=== PATIENT | female | born 1985 | race Caucasian/White ===

== ENCOUNTER 2019-05-30 09:06 | Outpatient (CLI) | payer BC, SELFPAY ==
[2019-05-30 13:56] LABS: CREATININE 0.84 mg/dL (0.55-1.02); Calcium 9.3 mg/dL (8.5-10.1); Chloride 103 mmol/L (98-107); Glucose 82 mg/dL (70-100); Potassium 3.9 mmol/L (3.5-5.1); Sodium 139 mmol/L (136-145)
[2019-05-30 14:03] LABS: BUN 8 mg/dL (7-18)
== END 2019-05-30 09:26 ==
PROVIDERS: PCP Nurse Practitioner Family; Visit Provider Nurse Practitioner Family
DX: Z00.00 Encounter for general adult medical examination without abnormal findings (principal); Z13.228 Encounter for screening for other metabolic disorders
CPT/HCPCS: 36415; 80048

== ENCOUNTER 2022-06-16 17:53 | Outpatient (REF) | payer OTHER, SELFPAY ==
[2022-06-16 21:01] LABS: Anion Gap 9.4 mmol/L (3-11); BUN 9 mg/dL (7-18); CO2 26.6 mmol/L (21.0-32.0); CREATININE 0.8 mg/dL (0.55-1.02); Calcium 9.2 mg/dL (8.5-10.1); Calculated LDL 100 mg/dL (<100); Chloride 103 mmol/L (98-107); Cholesterol 175 mg/dL (<200); Estimated GFR 97.26 (mL/min/1.73m2); Glucose 86 mg/dL (74-106); HDL Cholesterol 57 mg/dL (40-60); Potassium 3.8 mmol/L (3.5-5.1); Sodium 139 mmol/L (136-145); Triglyceride 93 mg/dL (<150)
== END 2022-06-16 17:54 | disposition home or self-care (01) ==
LOC: NCHCN 17:53
PROVIDERS: PCP Nurse Practitioner Family; Visit Provider Nurse Practitioner Family
DX: I10 Essential (primary) hypertension (principal); Z13.220 Encounter for screening for lipoid disorders
CPT/HCPCS: 80048; 80061

== ENCOUNTER 2022-06-30 09:48 | Outpatient (REF) | payer OTHER, SELFPAY ==
--- NOTE | 2022-06-30 09:45 | PAPFT_PTH ---
PATIENT: Kaela Talavera LOC: [facility]#:[id number] AGE/SX: 36/F ROOM: RE06/30/[address]: Pamela Zamora : 1985 BED: DIS: 06/30/2022 SPEC #: [id number] RECD: 06/30/22 15:52 STATUS: JUSTIN REJennifer #: [id number] JIAN: 06/30/22 09:[address]: Pamela Zamora DEPT: [facility] Cytology RECD BY: Bailey Sheldon Tissues: 1 - CX/ENDOCX FOR PAP SMEARS Procedures: PAP THIN PREP/UVM Screening HPV DNA PROBE Comments: [id number]
--- OUTSIDE RECORDS SUMMARY | 2022-06-30 10:08 | XMS_ITS | Encounter Summary ---
:1985 Author Organization [facility] Address [address] [place] [address] Care Team Providers Name Role Phone RivasBozena Primary Care Provider Reason for Referral (Routine) - Closed Specialty Diagnoses / Procedures Referred By Contact Refer red To Contact Debbie Padilla AP RN CNM [address] [phone] Referral ID Status Reason Start Date Expiration Date Visits V isits Requested Authorized [id number] Closed Specialty 12/06/2013 1 1 Services Required Comments Call [phone] for 6 week post v isit with [facility] practice Encounter Details Date Type Department Care Team Description 12/05/2013 - [facility] Piter Muniz MD [address] [phone] Supervision of 12/06/2013 Encounter Mother/Baby Unit Fabiano Rodriguez MD [address] [phone] other normal [address] ([place], [place]) [id number] Social History Tobacco Use Types Packs/Day Years Used Date Smoking Tobacco: Never Smokeless Tobacco: Never Alcohol Use Standard Drinks/Week Comments No 0 (1 standard drink = 0.6 oz pure alcoho l) Sex Assigned at Date Recorded Not on file documented as of this encounter Last Filed Vital Signs Vital Sign Reading Time Taken Comments Blood Pressure 122/78 12/06/2013 1630 EDT Pulse 65 12/06/2013 1630 EDT Temperature 36.7 ??C (98.1 ??F) 12/06/2013 1630 EDT Respiratory Rate 20 12/06/2013 1630 EDT Oxygen Saturation 98% 12/06/2013 1630 EDT Inhaled Oxygen Concentration - - Weight 106.6 kg (235 lb) 12/06/2013 1100 EDT Height 165.1 cm (5' 5) 12/06/2013 1100 EDT Body Mass Index 39.11 12/06/2013 1100 EDT documented in this encounter Functional Status Functional Status Response Date of Assessment Are you deaf or do you have serious difficulty hearing? No 12/05/2013 Are you blind or do you have serious difficulty seeing, No 12/05/2013 even when wearing glasses? Do you have serious difficulty walking or climbing No 12/05/2013 stairs? (5 years old or older) Do you have difficulty dressing or bathing? (5 years old No 12/05/2013 or older) Because of a physical, mental, or emotional condition, do No 12/05/2013 you have difficulty doing errands alone such as visiting a doctor's office or shopping? (15 years old or older) Cognitive Status Response Date of Assessment Because of a physical, mental, or emotional condition, do Ye s 12/05/2013 you have serious difficulty concentrating, remembering, or making decisions? (5 years old or older) documented as of this encounter Discharge Summaries Debbie Padilla CNM - 12/05/2013 1732 EDT MATERNAL DISCHARGE SUMMARY Maternal Name: Teresa Talavera : 1985 Attending: Admission: 12/05/2013 Discharge:___/_2013___ Reason for Admission: 28 y/o 2 para 1001 at 39+2/7 weeks gestation. Tate. PAST HISTORY: Disorders diagnosed prior to current Medical Renal Disease: Nephrolithiasis Gynecological Sexually Transmitted Diseases: None; Comments: PCOS Obstetrical No significant history CURRENT HISTORY (HPI): Disorders diagnosed during current Medical Substance Abuse: None; Smoking: None; Sexually Transmitted Diseases: None Obstetrical Mild Preeclampsia Comments: probable gestational HTN Medications during current : None Maternal Labs: O+; Antibody screen: Neg; Rubella titer: Immune; Syphilis Screening: Neg; Gonorrhea Screening: Neg; Chlamydia Screening: Neg; Hepatitis B screen: Neg; Hepatitis C screen: Not Done; HIV: Neg; 1hr Glucose: Normal LABOR INFORMATION Labor Onset: Induced; Method: Oxytocin; Augmentation: AROM GBS Status: Negative; GBS Prophylaxis: None Labor Analgesia: None; Labor & Delivery Medications: Post Oxytocin VTX; OA Continuous External FHRM; FHR Pattern: Normal Amniotic Fluid Color: Thin meconium; Duration Rupture of Membranes: <12 DELIVERY INFORMATION Spontaneous Vaginal Delivery; Episiotomy: None; Lacerations: Periurethral, First Degree Perineal; Repair Suture: 4-0 Vicryl; Delivery / Repair Anesthesia: Local; EBL: < 500 Comments: Teresa became active after AROM and was complete by 1639 pushed 4 min to live term female infant at 1643 8#6oz Apgars 9/9 baby to maternal abdomen. Placenta: Delivery Method: Spontaneous; Configuration: Normal; Comments: Cord double clamped after it stopped pulsating. Placenta complete and intact via jimenez mechanism with gentle cord traction and maternaleffort at 1647, 3 vessel cord noted. MATERNAL DISCHARGE SUMMARY Labor and Delivery Complications and/or Procedures: None INFORMATION Weight: 3799 grams Sex: Female Delivery Date: 12/05/2013 Delivery Time: 1643 Apgars: 91 , 95 : PPD #1 Additional Comments: Experienced mother Diet: Regular Activity Decreased for 2 weeks Discharge Medications / Dosage All OTC meds Other Problems / Discharge Diagnoses Follow-Up Plan for each Problem Condition at Discharge: Stable Discharge Disposition: [x] Home [] Other: House Staff/[facility] Signature: ___12/06/2013 0940 Debbie Padilla [facility] Srinath 12/05/2013 @ 1733 documented in this encounter Medications at Time of Discharge Medication Sig Dispensed Refills Start Date End Date acetaminophen (TYLENOL) Take 650 mg by mouth 0 325 mg tablet every 4 hours as needed for Pain. ibuprofen (MOTRIN) 400 mg Take 1 Tab by mouth 30 Tab 1 0 12/06/2013 tablet every 4 hours as needed for Pain. lansinoh HPA lanolin For sore nipples. 1 Tube 1 12/07/19 14 MULTIVITAMIN WITH FOLIC Take 2 Tabs by mouth 0 ACID (DAILY GUMMIES ORAL) daily. calcium carbonate (TUMS) Take 1-2 Tabs by 30 Tab 1 12/0601/16/2014 200 mg calcium (500 mg) mouth every 4 hours tablet, chewable as needed (gerd). docusate sodium (COLACE) Take 100 mg by mouth 0 01/16/2014 100 mg capsule daily. famotidine (PEPCID) 20 mg Take 20 mg by mouth 0 01/16/2014 tabletIndications: daily as needed. heartburn Indications: HEARTBURN psyllium, 5.8 G, Take 1 Packet by 0 (METAMUCIL) packet mouth daily. documented as of this encounter Ordered Prescriptions Prescription Sig Dispensed Refills Start Date End Date lansinoh HPA lanolin For sore nipples. 1 Tube 1 12/07/19 14 ibuprofen (MOTRIN) 400 mg Take 1 Tab by mouth 30 Tab 1 0 12/06/2013 tablet every 4 hours as needed for Pain. calcium carbonate (TUMS) Take 1-2 Tabs by 30 Tab 1 12/0601/16/2014 200 mg calcium (500 mg) mouth every 4 hours tablet, chewable as needed (gerd). documented in this encounter Discharge Disposition Disposition Code Departure Means Destination Home or Self Care documented in this encounter Progress Notes Debbie Padilla CNM - 12/06/2013 0954 EDT S: Very happy with the - after AROM - went very quickly Wants D/C - lives 1 1/2 hour away but wants to be home OOB with out dizziness Voiding qs, no BM Bleeding is small, passed a few small clots last night. T&M are controlling the uterine cramping pain O: BP 124/72 Pulse 79 Temp(Src) 36.8 ??C (98.2 ??F) (Temporal) Resp 18 SpO2 97% LMP 03/02/2013 Breasts Soft, nipples intact FF @ 1F below umbilicus Small -mod rubra flow Perineum approximated LE - +2 edema, tucker's neg A: PPD #1 S/P IOL/ with 1st degree laceration repaired, epidural P: D/C - Peds has said OK Review PPD signs. Plans ?micronor for birthcontrol F/U 6 weeks Michelle Juarez CNM - 12/05/2013 1719 EDT Delivery Note: Teresa became active after AROM and was complete by 1639 pushed 4 min to live term female infant at 1643 8#6oz Apgars 9/9 baby to maternal abdomen. Cord double clamped after it stopped pulsating. Placenta complete and intact via jimenez mechanism with gentle cord traction and maternal effort at 1647, 3 vessel cord noted. Perineum inspected and revealed 1st degree perineal laceration and periurthreal skid rashad - not repaired. First degree laceration repaired under local anesthesia with 4-0 vicryl. Pt remained normotensive the entire labor. Baby latched and sucked vigorously for ~ 20+ minutes. Will follow. Michelle Juarez CNM - 12/05/2013 1557 EDT S/ Pt feels UCs mildly. P/Blood pressure 119/68, pulse 78, temperature 36.3 ??C (97.3 ??F), temperature source Oral, resp. rate 18, last menstrual period 03/02/2013. Pitocin at 13 --> 10 mu/min UCs q q 2 min x 50 seconds FHTs 130s with accels to 150s and adequate variability VE 6 / 80% /-1 to -2 station vtx applied to cervix with UCs --> AROM copious amounts lightly stained meconium amniotic fluid A/ IUP 39+2 weeks Mild pre-eclampsia with no severe features vs gestational HTN IOL Early active labor P/ Anticipate progress per multip Labor support Genesis Christianson RN - 12/05/2013 1128 EDT Pt here for IOL for pre-eclampsia.KINJAL Juarez here to speak with pt.D. Pt is a G*2 P1* at 39 plus 2 weeks here for an induction of labor for preeclampsia vs GHTN. Her GBS is negative. Pt is not sure what to expect. Her cervical exam is 4 making her bishops score ? A. Explain to the patient that she will have an IV, and continuous monitoring. We will use the wireless monitor to facilitate movement in labor and they will also allow her to use the tub and be monitored. The doctors will make a plan with her regarding the induction agent to be used, and will explainthe risks and benefits of the agent to be used. Anesthesia will do a consult in case she wants an epidural. Nursing will be in to see her every 15 minutes providing continuous labor support as needed. VS will be done hourly. When she is uncomfortable nursing will work with her to cope with the labor. Should the patient request an epidural nursing will ensure that the doctors are aware of the request and anesthesia will be notified. Explain a normal labor curve and how a baby descends. R pt will be reassured and understand the laboring process.1303 Eating lunch,beginning to feel occasional ctx.1349 C/O menstrual like cramping with ctxs.1557 C/O increasing intensity of ctxs.Breathing slowly through ctxs.Leaking copious amts thin mec fluid.1604 Beg to feel rectal pressure.Kinjal Juarez informed.1637 Pt stating sherhas to push but not bearing down.Kinjal Juarez and telegraphic typewriter mechanic in room. documented in this encounter H&P Notes Fabiano Rodriguez MD - 12/05/2013 1153 EDT Obstetric Admission Note: CC: 28 y/ present at 39+2 weeks with mild pre-eclampsia without sever features HPI: BP elevated x 1 at 35+ weeks with elevated total protein 403 at 35+5 weeks then normotensive until yesterday History Maternal Name: Teresa Talavera : 1985 28 y/o 2 para 1001 at 39+2/7 weeks gestation. Tate EDDY: 12/10/2013 EDDY Basis: Ultrasound only PAST HISTORY: Disorders diagnosed prior to current Medical Renal Disease: Nephrolithiasis Gynecological Sexually Transmitted Diseases: None Comments: PCOS Obstetrical No significant history CURRENT HISTORY (HPI pg. 1 of 2): Disorders diagnosed during current Medical Substance Abuse: None; Smoking: None; Sexually Transmitted Diseases: None Obstetrical Mild Preeclampsia Comments: probable gestational HTN Medications during current : None TESTING Maternal Labs: O+; Antibody screen: Neg; Rubella titer: Immune; Syphilis Screening: Neg; Gonorrhea Screening: Neg; Chlamydia Screening: Neg; Hepatitis B screen: Neg; Hepatitis C screen: Not Done; HIV: Neg; 1hr Glucose: Normal Serum Screening: Multiple Marker Screening Not Done; Cystic Fibrosis Carrier Screening: Not Done Surveillance: Ultrasound Objective: Blood pressure 132/70, pulse 91, temperature 36.3 ??C (97.3 ??F), temperature source Oral, resp. rate 18, last menstrual period 03/02/2013. Heart: RRR Lungs: clear bilaterally Abdomen: gravid EFW 7#4oz Pelvic Exam: 4 cm// -2 / 70%/ vtx ballotable Extremities:- clonus No reflexes ( patellar) FHTs: 130s accels to 150s no decels and adequate variability Contractions: irritability no regular UCs LABS from 1700 5/5/14: H/H 12.0/36.9 Plts 218 BUN 6 Creat 0.6 Uric Acid 4.2 AST 21 ALT 31 Fibrinogen 598 U/A - protein Protein/creatinine ratio 0.26 Pitocin Bundle: Induction 39w2d EDC: 12/10/13 Indication: mild pre-eclamsia Prior Uterine Scar: no EFW: 7#4 Assessment of Pelvic Adequacy: gynecoid - proven to 7#12 Presentation: vertex Michael Score: 8 Informed Consent: yes Attending Concurs: yes Assessment: 28 y/o G2 P 1001 at 39+2 weeks Michael score 8 - GBS Probable Gestational HTN but mild pre-eclampsia given total protein elevated at 35+5 weeks Category I FHTs BMI 35 H/O kidney stones H/O PCOS Plan: Induction of labor with pitocin I&O Large cuff for BP AROM when able Continuous EFM Desires NCB Reviewed with Dr. Rodriguez OB Attending Attestation: I have reviewed Teresa Talavera's labs, vitals and history, and agree with the above assessment andplan as noted. 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 . Maternal Name: Teresa Talavera : 1985 28 y/o 2 para 1001 at 39+2/7 weeks gestation. Tate. LABOR INFORMATION Labor Onset: Induced; Method: Oxytocin; Augmentation: AROM GBS Status: Negative; GBS Prophylaxis: None Labor Analgesia: None Labor & Delivery Medications: Post Oxytocin VTX; OA Continuous External FHRM; FHR Pattern: Normal Amniotic Fluid Color: Thin meconium; Duration Rupture of Membranes: <12 DELIVERY INFORMATION Spontaneous Vaginal Delivery Episiotomy: None; Lacerations: Periurethral, First Degree Perineal; Repair Suture: 4-0 Vicryl Delivery / Repair Anesthesia: Local EBL: < 500 Comments: Teresa became active after AROM and was complete by 1639 pushed 4 min to live term female at 1643 8#6oz Apgars 9/9 baby to maternal abdomen. Placenta: Delivery Method: Spontaneous; Configuration: Normal; Comments: Cord double clamped after it stopped pulsating. Placenta complete and intact via jimenez mechanism with gentle cord traction and maternaleffort at 1647, 3 vessel cord noted. Labor and Delivery Complications: None INFORMATION Weight: 3799 grams Sex: Female Delivery Date: 12/05/2013 Delivery Time: 1643 Apgars: 91, 95 Peds NOT Present Admitting Nursery: Normal Rhame Placental Cord Insertion: Normal; Umbilical Cord Vessels: Three DELIVERY PERSONNEL Delivery Provider: Michelle Juarez Primary Nurse: Genesis Christianson CNM: Michelle Juarez Additional Provider 1: Fabiano Rodriguez Service / Group: KINJAL/TAMAR Provider: Michelle Juarez Lovell Staff/KINJAL Signature: Michelle Juarez 12/05/2013 @ 1732 Attending Attestation: Attending Signature: Date: documented in this encounter Miscellaneous Notes Plan of Care - Henny Iyer RN - 12/06/2013 1854 EDT Post- Shift Note Maternal: Admit Date: 12/05/2013 Hospital Day: LOS: 1 day Date of Delivery: Information for the patient's : Sadaf Lucio [[id number]] 12/05/2013 Time of Delivery: Information for the patient's : Sadaf Glenteresa [[id number]] 1643 Type of Delivery: normal spontaneous vaginal delivery Rhogam Administration: Not needed Gestation (weeks): 39+2 Information for the patient's : Sadaf Karolenriqueta [[id number]] 39 09/08 Hepatitis B: Lab Results Component Value Date HEPBSAG Negative 04/26/2013 Hepatitis C: No results found for this basename: HEPCAB Rubella: Protected Anesthesia/Duramorph: None Episiotomy/Laceration:1st degree Vital signs: Stable Patient Vitals for the past 8 hrs: BP Pulse Resp Temp SpO2 12/06/13 1630 122/78 mmHg 65 20 36.7 ??C (98.1 ??F) 98 % 12/06/13 1414 136/80 mmHg 75 - - - Post- check: WNL no headache, no visual change, no epigastric pain SL: None Almanza/Void: Patient up and voiding Pain Medications: Given this shift - see MAR Feeding: breast Feeding assistance: Independent Special Social Circumstances: Discharge Education:Education completed Certificate: Not completed Comments: Stable PP patient, discharged ambulatory accompanied by and older child and infantin carseat. Mother instructed in how to suction with bulb syringe, and how to help a choking baby since baby has been spitty. Henny Iyer RN 12/06/2013 18:54 Plan of Care - Debbie Velasco RN - 12/06/2013 1408 EDT Post- Shift Note Maternal: Admit Date: 12/05/2013 Hospital Day: LOS: 1 day Date of Delivery: Information for the patient's : Lucio Talavera [[id number]] 12/05/2013 Time of Delivery: Information for the patient's : Lucio Talavera [[id number]] 1643 Type of Delivery: normal spontaneous vaginal delivery Rhogam Administration: Not needed Gestation (weeks): Information for the patient's : Lucio Talavera [[id number]] 39 2/7 Hepatitis B: Lab Results Component Value Date HEPBSAG Negative 04/26/2013 Hepatitis C: No results found for this basename: HEPCAB Rubella: Protected Anesthesia/Duramorph: None Episiotomy/Laceration:1st degree Vital signs: Stable Patient Vitals for the past 8 hrs: BP Pulse Resp Temp SpO2 12/06/13 0743 124/72 mmHg 79 18 36.8 ??C (98.2 ??F) 97 % Post- check: WNL no headache, no visual change, no epigastric pain SL: None Almanza/Void: Patient up and voiding Pain Medications: Given this shift - see MAR Feeding: breast Feeding assistance: Independent Special Social Circumstances: Discharge Education:Education completed Certificate: Not completed Knows she needs to turn it in before discharge Comments: Stable PP patient. Taking T/M when requested. Doing lots of STS. Has a 2 year old at home.Hoping for discharge later today. No referral. She will be discharged with her Debbie Velasco RN 12/06/2013 14:08 Plan of Care - Amanda Fletcher RN - 12/06/2013 1009 EDT Problem: VAGINAL DELIVERY - RECOVERY AND POST Goal: Vital Signs Are Medically Acceptable Outcome: Met This Shift Data: DD #1 @ 1643. See flowsheet for VS. Action: VS done q8hrs per MD orders. Response: AVSS. Will continue to monitor. Plan of Care - Amanda Fletcher RN - 12/06/2013 1007 EDT Post- Shift Note Maternal: Admit Date: 12/05/2013 Hospital Day: LOS: 1 day Date of Delivery: Information for the patient's : Lucio Talavera [[id number]] 12/05/2013 Time of Delivery: Information for the patient's : Lucio Talavera [[id number]] 1643 Type of Delivery: normal spontaneous vaginal delivery Rhogam Administration: Not needed Gestation (weeks): Information for the patient's : Lucio Talavera [[id number]] 39 09/08 Hepatitis B: Lab Results Component Value Date HEPBSAG Negative 04/26/2013 Hepatitis C: No results found for this basename: HEPCAB Rubella: Protected Anesthesia/Duramorph: None Episiotomy/Laceration:1st degree Vital signs: Stable Patient Vitals for the past 8 hrs: BP Pulse Resp Temp SpO2 12/06/13 0743 124/72 mmHg 79 18 36.8 ??C (98.2 ??F) 97 % Post- check: WNL IV / SL: Saline lock removed - catheter intact Almanza/Void: Patient up and voiding Pain Medications: Given this shift - see MAR Feeding: breast Feeding assistance: Independent Special Social Circumstances: Discharge Education:Education initiated and Education incomplete Certificate: Not completed Comments: Stable PP patient. Taking T/M when requested. Doing lots of STS. Has a 2 year old at home.Hoping for discharge later today. Amanda Fletcher RN 12/06/2013 10:07 Plan of Care - Amanda Fletcher RN - 12/06/2013 0321 EDT Problem: VAGINAL DELIVERY - RECOVERY AND POST Goal: Fundus Firm At Midline Outcome: Ongoing Data: Fundus firm, to the right, +2. Moderate/scant rubra lochia. No clots. Action: Fundal assessment done q8hrs per MD orders. Pt up to void. Response: Fundus firm, midline, U-1; post void. Encourage patient to void frequently. Plan of Care - Amanda Fletcher RN - 12/06/2013 0317 EDT Post- Shift Note Maternal: Admit Date: 12/05/2013 Hospital Day: LOS: 1 day Date of Delivery: Information for the patient's : Sadaf Karolenriqueta [[id number]] 12/05/2013 Time of Delivery: Information for the patient's : Sadaf Glenteresa [[id number]] 1643 Type of Delivery: normal spontaneous vaginal delivery Rhogam Administration: Not needed Gestation (weeks): Information for the patient's : Sadaf Lcuio [[id number]] 39 09/08 Hepatitis B: Lab Results Component Value Date HEPBSAG Negative 04/26/2013 Hepatitis C: No results found for this basename: HEPCAB Rubella: Protected Anesthesia/Duramorph: None Episiotomy/Laceration:1st degree Vital signs: Stable Patient Vitals for the past 8 hrs: BP Pulse Resp Temp SpO2 12/06/13 0011 125/71 mmHg 85 18 36.4 ??C (97.5 ??F) - 12/05/13 2001 137/77 mmHg 84 18 36.7 ??C (98.1 ??F) 97 % Post- check: WNL IV / SL: Saline lock patent and flushed this shift Almanza/Void: Patient up and voiding Pain Medications: Given this shift - see MAR Feeding: breast Feeding assistance: Independent Special Social Circumstances: Discharge Education:Education initiated and Education incomplete Certificate: Not completed Comments: Stable PP patient. Taking T/M when requested. Doing lots of STS. Has a 2 year old at home.Hoping for discharge later today. Amanda Fletcher RN 12/06/2013 3:18 documented in this encounter Plan of Treatment Scheduled Referrals Name Type Priority Associated Order Schedule Diagnoses PROVIDER FOLLOW-UP Outpatient Referral Routine Or dered: INSTRUCTIONS 12/06/2013 documented as of this encounter Visit Diagnoses Diagnosis Supervision of other normal - Primary documented in this encounter Administered Medications Inactive Administered Medications - up to 3 most recent administrations Medication Order MAR Action Action Date Dose Rate Site acetaminophen (TYLENOL) tablet Given 12/06/2013 10:49 EDT 650 mg 325-650 mg 325-650 mg, oral, EVERY 4 HOURS PRN, Starting on Wed12/05/13 at 2100, Until Wed12/06/13 at 2009, Pain, Routine Given 12/06/2013 3:04 EDT 650 mg acetaminophen (TYLENOL) tablet 650 mg Given 12/05/2013 17:13 EDT 650 mg 650 mg, oral, PRN, Starting on Wed12/05/13 at 1155, Until Wed12/05/13 at 1822, Pain, , Routine docusate sodium (COLACE) capsule 100 mg Given 12/06/2013 10:49 EDT 100 mg 100 mg, oral, 2 TIMES DAILY PRN, Starting on Wed12/05/13 at 1822, Until Wed12/06/13 at 2009, Constipation, Routine ibuprofen (MOTRIN) tablet 400 mg Given 12/05/2013 17:12 EDT 400 mg 400 mg, oral, PRN, Starting on Wed12/05/13 at 1155, Until Wed12/05/13 at 1822, Pain, , Routine ibuprofen (MOTRIN) tablet 400 mg Given 12/06/2013 10:48 EDT 400 mg 400 mg, oral, EVERY 4 HOURS PRN, Starting on Wed12/05/13 at 2100, Until Wed12/06/13 at 2009, Pain, Routine Given 12/06/2013 3:04 EDT 400 mg lactated ringers (LR) infusion New Bag 12/05/2013 11:52 EDT 200 mL/hr 200 mL/hr 150-200 mL/hr, intravenous, CONTINUOUS, Starting on Wed12/05/13 at 1215, Until Wed12/05/13 at 1822, Routine oxytocin in lactated ringers 30 Restarted 12/05/2013 16:47 EDT 2 00 mL/hr 200 mL/hr units/500 ml 200 mL/hr, intravenous, CONTINUOUS, Starting on Wed12/05/13 at 1630, Until Wed12/05/13 at 1822, Routine, Intraprocedure oxytocin in lactated ringers Rate Change 12/05/2013 17:46 EDT 135 mL/hr 135 mL/hr 30 units/500 ml 135 mL/hr, intravenous, CONTINUOUS, Starting on 12/05/13 at 1747, Until 12/05/13 at 1822, Routine, Intraprocedure oxytocin in lactated Rate Change 12/05/2013 16:22 EDT 4 kwan-units/m in 4 mL/hr ringers 30 units/500 ml 1-30 kwan-units/min (rounded to 1-30 mL/hr), intravenous, CONTINUOUS, Starting on 12/05/13 at 1215, Until 12/05/13 at 1822, Routine Rate Change 12/05/2013 15:53 EDT 7 kwan-units/min 7 mL/hr Rate Change 12/05/2013 15:44 EDT 10 kwan-units/min 10 mL/hr documented in this encounter Active and Recently Administered Medications Times are shown in EDT. Continuous Medication Order 12/04/2013 12/05/2013 12/06/2013 lactated ringers (LR) infusion (CANCELED) 1152 (New Bag - Provider: Genesis Christianson RN) at 150-200 mL/hr, 150-200 mL/hr, intrave nous, CONTINUOUS, Starting 12/05/13 at 1215, Until 12/05/13 at 1822, Routine oxytocin in lactated ringers 30 units/500 ml (CANCELED) 1647 (Restarted - Provider: Genesis Christianson RN) 200 mL/hr, intravenous, CONTINUOUS, Star ting 12/05/13 at 1630, Until 12/05/13 at 1822, Routine oxytocin in lactated ringers 30 units/500 ml (CANCELED) 1746 (Rate Change - Provider: Genesis Christianson RN)1803 (Completed - Provider: Genesis Christianson RN) 135 mL/hr, intravenous, CONTINUOUS, Star ting 12/05/13 at 1747, Until 12/05/13 at 1822, Routine oxytocin in lactated ringers 30 units/500 ml (CANCELED) 1213 (New Bag - Provider: Genesis Christianson RN)1244 (Rate Change - Provider: Genesis Christianson RN)1314 (Rate Change - Provider: Genesis Christianson RN)1341 (Rate Change - Provider: Genesis Christianson RN)1410 (Rate Change - Provider: Genesis Christianson RN) 1-30 kwan-units/min = 1-30 mL/hr, intra venous, CONTINUOUS, Starting Wed12/05/13 at 1215, Until Wed12/05/13 at 1822, Routine 1453 (Rate Change - Provider: Genesis Christianson RN)1522 (Rate Change - Provider: Genesis Christianson RN)1544 (Rate Change - Provider: Genesis Christianson RN)1553 (Rate Change - Provider: Genesis Christianson RN)1622 (Rate Change - Provider: Genesis Christianson RN) 1636 (Completed - Provider: Tiara Christianson RN) PRN Medication Order 12/04/2013 12/05/2013 12/06/2013 acetaminophen (TYLENOL) tablet 325-650 mg (CANCELED) 0304 (Given - Provider: Amanda Fletcher RN)1049 (Given - Provider: Amanda Fletcher RN) 325-650 mg, oral, EVERY 4 HOURS PRN, Sta rting Wed12/05/13 at 2100, Until Wed12/06/13 at 2009, Pain, Routine acetaminophen (TYLENOL) tablet 650 mg (CANCELED) 1713 (Given - Provider: Genesis Christianson RN) 650 mg, oral, PRN, Starting Wed12/05/13 a t 1155, Until Wed12/05/13 at 1822, Pain, , Routine calcium carbonate (TUMS) 200 mg calcium (500 mg) per chewable tablet tablet, chewable 1-2 Tab 1-2 Tab, oral, EVERY 2 HOURS PRN, Starti ng Wed12/05/13 at 1822, Until Wed12/06/13 at 2009, Heartburn, Indigestion, Routine docusate sodium (COLACE) capsule 100 mg (CANCELED) 1049 (Given - Provider: Amanda Fletcher RN) 100 mg, oral, 2 TIMES DAILY PRN, Startin g Wed12/05/13 at 1822, Until Wed12/06/13 at 2009, Constipation, Routine ibuprofen (MOTRIN) tablet 400 mg (CANCELED) 1712 (Given - Provider: Genesis Christianson RN) 400 mg, oral, PRN, Starting Wed12/05/13 a t 1155, Until Wed12/05/13 at 1822, Pain, , Routine ibuprofen (MOTRIN) tablet 400 mg 0304 (Given - Provider: Amanda Fletcher, RN)1048 (Given - Provider: Amanda Fletcher, SRINIVAS) 400 mg, oral, EVERY 4 HOURS PRN, Startin g Wed12/05/13 at 2100, Until Wed12/06/13 at 2010, Pain, Routine lansinoh HPA lanolin topical, PRN, Starting Wed12/05/13 at 1822, Until Wed12/06/13 at 2 010, Other documented in this encounter Orders Medications Ordered That Might Not Have Count Last Ord ered Date First Ordered Date Been Administered multivitamin vit-iron fumarate-FA 1 12/06 (STUARTNATAL) 27-1 mg tablet 1 Tab calcium carbonate (TUMS) 200 mg calcium 1 12/06/19 14 (500 mg) per chewable tablet tablet, chewable 1-2 Tab carboprost (HEMABATE) intramuscular 1 12/05/2013 injection 250 mcg lansinoh HPA lanolin 1 12/05/2013 methylergonovine (METHERGINE) injection 1 12/06/19 14 200 mcg misoprostol (CYTOTEC) tablet 200 mcg 1 12/05/2013 misoprostol (CYTOTEC) tablet 800 mcg 1 12/05/2013 oxyCODONE (ROXICODONE) immediate release 1 014 tablet 5-10 mg Diet Count Last Ordered Date First Ordered Date DISCHARGE DIET 1 12/06/2013 Nursing Count Last Ordered Date First Ordered Date ACTIVITY INSTRUCTIONS 3 12/06/2013 BATHING INSTRUCTIONS 12/06/2013 Admission Count Last Ordered Date First Ordered Date STATUS: INPATIENT ACUTE ADMISSION 12/05/2013 STATUS: NON-MEDICARE OB INPATIENT 1 12/05/2013 ADMISSION Transfer Count Last Ordered Date First Ordered Date NOTIFY PPS OF DISCHARGE COMPLETE 1 12/06/2013 PPS NOTIFICATION OF PATIENT ARRIVAL ON 4 UNIT PPS NOTIFICATION OF SENDING PATIENT OFF 12/06/19 14 THE UNIT Discharge Count Last Ordered Date First Ordered Date DISCHARGE PATIENT 1 12/06/2013 Legal Count Last Ordered Date First Ordered Date MISCELLANEOUS DISCHARGE INSTRUCTIONS 3 12/06/2013 documented in this encounter Care Teams Dog Handler Or Trainer Relationship Specialty Start Date End Date Bozena Rivas DO PCP - General 09/27/[address] [place] [id number] documented as of this encounter
--- OUTSIDE RECORDS SUMMARY | 2022-06-30 10:08 | XMS_ITS | Encounter Summary ---
:1985 Author Organization [facility] Address [address] [place] [address] Care Team Providers Name Role Phone Rivas Bozena A Primary Care Provider Reason for Visit Reason Onset Date Comments Post- Care 12/14/2013 Encounter Details Date Type Department Care Team Description 12/14/2013 Telephone [facility] Alessia Sierra , Post- Care Obstetrics & Midwifery - [address] [address] [facility] [place] [address] (Wo rk) Social History Tobacco Use Types Packs/Day Years Used Date Smoking Tobacco: Never Smokeless Tobacco: Never Alcohol Use Standard Drinks/Week Comments No 0 (1 standard drink = 0.6 oz pure alcoho l) Sex Assigned at Date Recorded Not on file documented as of this encounter Functional Status Functional Status Response [...] or older) documented as of this encounter Miscellaneous Notes Telephone Encounter - Alessia Sierra CNM - 12/14/2013 1510 EDT Called Kaela to check on transition, We're doing great!! Much easier recovery after this than after her first. is going well with comfortable latch. Older daughter Clover adjusting to new sibling, Kaela finding ways to help her feel included during cares. Lochia is like a period, no problems voiding or moving bowels. was home first week and now Kaela's mom is helping out. Reminded her to call and schedule her 6 week visit. documented in this encounter Plan of Treatment Not on filedocumented as of this encounter Visit Diagnoses Not on filedocumented in this encounter Care Teams Log Sorting Supervisor Relationship Specialty Start Date End Date Bozena Rivas DO PCP - General 09/27/[address] [place] [id number] documented as of this encounter
--- OUTSIDE RECORDS SUMMARY | 2022-06-30 10:08 | XMS_ITS | Encounter Summary ---
:1985 Author Organization [facility] Address [address] [place] [address] Care Team Providers Name Role Phone Evelyn Bozena Viera DO Primary Care Provider Encounter Details Date Type Department Care Team Description 09/12/2013 Hospital Encounter [facility] - Unknown, Provider, [facility] Erlinda Martinez APRN [facility] [address] [facility] [place] [address] [address], [place] [id number] Social History Tobacco Use Types Packs/Day Years Used Date Smoking Tobacco: Never Smokeless Tobacco: Never Alcohol Use Standard Drinks/Week Comments No 0 (1 standard drink = 0.6 oz pure alcoho l) Sex Assigned at Date Recorded Not on file documented as of this encounter Functional Status Cognitive Status Response Date of Assessment Because of a physical, mental, or emotional condition, do Ye s 01/10/2011 you have serious difficulty concentrating, remembering, or making decisions? (5 years old or older) documented as of this encounter Discharge Diagnoses Diagnosis V22.1 SUPERVIS OTHER NORMAL PREG[ICD-9-C M] documented in this encounter Medications at Time of Discharge Medication Sig Dispensed Refills Start Date End Date acetaminophen (TYLENOL) Take 650 mg by mouth 0 325 mg tablet every 4 hours as needed for Pain. MULTIVITAMIN WITH FOLIC Take 2 Tabs by mouth 0 ACID (DAILY GUMMIES ORAL) daily. docusate sodium (COLACE) Take 100 mg by mouth 0 01/16/2014 100 mg capsule daily. famotidine (PEPCID) 20 mg Take 20 mg by mouth 0 01/16/2014 tabletIndications: daily as needed. heartburn Indications: HEARTBURN HYDROmorphone (DILAUDID) Take 1-2 Tabs by 20 Each 0 08/0909/29/2013 2 mg tablet mouth every 4 hours as needed for Pain. psyllium, 5.8 G, Take 1 Packet by 0 (METAMUCIL) packet mouth daily. documented as of this encounter Discharge Disposition Disposition Code Departure Means Destination Auto Discharge Home documented in this encounter Plan of Treatment Not on filedocumented as of this encounter Visit Diagnoses Not on filedocumented in this encounter Care Teams Medical Diagnostic Radiographer Relationship Specialty Start Date End Date Bozena iRvas DO PCP - General 05/26/11 09/26/[address] [place] [phone] documented as of this encounter
--- OUTSIDE RECORDS SUMMARY | 2022-06-30 10:08 | XMS_ITS | Encounter Summary ---
:1985 Author Organization [facility] Address [address] [place] [address] Care Team Providers Name Role Phone Bozena Rivas DO Primary Care Provider Encounter Details Date Type Department Care Team Description 09/12/2013 Phlebotomy Only [facility] - Lead Recreation Assistant, [facility] Outpatient [address] [place] [address] Social History Tobacco Use Types Packs/Day Years Used Date Smoking Tobacco: Never Smokeless Tobacco: Never Alcohol Use Standard Drinks/Week Comments No 0 (1 standard drink = 0.6 oz pure alcoho l) Sex Assigned at Date Recorded Not on file documented as of this encounter Functional Status Cognitive Status Response Date of Assessment Because of a physical, mental, or emotional condition, Ye s 01/10/2011 you have serious difficulty concentrating, remembering, or making decisions? (5 years old or older) documented as of this encounter Plan of Treatment Not on filedocumented as of this encounter Visit Diagnoses Not on filedocumented in this encounter Care Teams Chocolate Production Machine Operator Relationship Specialty Start Date End Date Bozena Rivas DO PCP - General 05/26/11 09/26/[address] [place] [phone] documented as of this encounter
--- OUTSIDE RECORDS SUMMARY | 2022-06-30 10:08 | XMS_ITS | Encounter Summary ---
:1985 Author Organization [facility] Address [address] [place] [address] Care Team Providers Name Role Phone Rivas Bozena Maximiliano CASTELLANO Primary Care Provider Encounter Details Date Type Department Care Team Description 09/12/2013 Phlebotomy Only [facility] Publications Distribution Clerk, Super vision [facility] Outpatient normal [address] [place] [address] Social History Tobacco Use Types Packs/Day Years [...] Not on filedocumented as of this encounter Procedures Procedure Name Priority Date/Time Associated Diagnosis Comme nts GLUCOSE RYAN, DOSE Routine 09/12/2013 14:45 Supervision of othe r Results for this EST normal procedure a re in the results section. GLUCOSE-1HR Routine 09/12/2013 14:45 Supervision of other GESTATIONAL SCREEN EST normal GLUCOSE-1HR Routine 09/12/2013 14:45 Supervision of other Res ults for this GESTATIONAL SCREEN EST normal proce dure are in the results section. COMPLETE BLOOD COUNT Routine 09/12/2013 14:45 Supervision of o ther Results for this EST normal procedure a re in the results section. documented in this encounter Results GLUCOSE-1HR GESTATIONAL SCREEN (09/12/2013 14:45 EST) athologist Signature Glucose-1hr 82 50 - 134 [facility] mg/dl LAB Comment: A one hour glucose greater than or equal to 135 mg/dl should be further evaluated with a forma l three hour glucose tolerance test. Specimen Anatomical Collection Method Collection Time Receive d Time (Source) Location / / Volume Laterality 09/12/2013 14:45 09/12/2013 EST 16:12 EST Erlinda Martinez APRN, CNM CHEMISTRY & BLOOD GAS ORDE RABLES Performing Organization Address City/State/ZIP Code Phon e Number [facility] [address] [place] [address] SERVICES [facility] [address] [place] [address] GLUCOSE RYAN, DOSE (09/12/2013 14:45 EST) athologist [facility] Glucose Dose 50 g [facility] Specimen Anatomical Collection Method Collection Time Receive d Time (Source) Location / / Volume Laterality 09/12/2013 14:45 09/12/2013 EST 16:12 EST Erlinda Martinez APRN [facility] PACKAGES & DNA PROBE ORDER REDDY Performing Organization Address City/[facility]/ZIP Code Phon e Number [facility] [address] [place] [address] SERVICES [facility] [address] [place] [address] (ABNORMAL) HEMAGRAM (09/12/2013 14:45 EST) athologist Signature WBC 11.97 4.0 - 12.4 [facility] K/cmm LAB RBC 4.27 3.86 - 5.04 [facility] M/cmm LAB Hemoglobin 11.3 (L) 11.6 - 15.2 [facility] gm/dl LAB HCT 34.4 (L) 34.9 - 44.4 [facility] % LAB MCV 80 (L) 81 - 98 fl [facility] MCH 26.5 (L) 26.7 - 33.3 [facility] pg LAB MCHC 33.0 32.1 - 35.9 [facility] gm/dl LAB PLT 239 141 - 320 [facility] K/cmm LAB RDW-CV 13.0 11.7 - 14.6 [facility] % LAB Specimen Anatomical Collection Method Collection Time Receive d Time (Source) Location / / Volume Laterality Blood specimen 09/12/2013 14:45 4 (specimen) EST 16:12 EST Erlinda Martinez CAR WHACKER CNM HEMATOLOGY & PF4 ORDERABLE S Performing Organization Address City/State/ZIP Code Phon e Number [facility] [address] [place] [address] SERVICES [facility] [address] [place] [address] documented in this encounter Visit Diagnoses Diagnosis Supervision of other normal documented in this encounter Care Teams Strip Picker Relationship Specialty Start Date End Date Bozena Rivas DO PCP - General 05/26/11 09/26/[address] [place] [phone] documented as of this encounter
--- OUTSIDE RECORDS SUMMARY | 2022-06-30 10:08 | XMS_ITS | Encounter Summary ---
:1985 Author Organization [facility] Address [address] [place] [address] Care Team Providers Name Role Phone Evelyn Bozena Viera DO Primary Care Provider Reason for Referral (Routine) - Closed Specialty Diagnoses / Procedures Referred By Contact Refer red To Contact Alessia Sierra APRN CNM [address] [phone] Referral ID Status Reason Start Date Expiration Date Visits V isits Requested Authorized [id number] Closed Specialty 12/04/2013 1 1 Services Required Comments Plan is for induction of labor tomorrow. (Routine) - Closed Specialty Diagnoses / Procedures Referred By Contact Refer red To Contact Alessia Sierra APRN CNM [address] [phone] Referral ID Status Reason Start Date Expiration Date Visits V isits Requested Authorized [id number] Closed Specialty 12/04/2013 1 1 Services Required Reason for Visit Reason Comments Pre-Eclampsia Encounter Details Date Type Department Care Team Description 12/04/2013 Hospital Encounter [facility] Joe Ivy MD Supervision of Birthing Center Keli Muniz MD [address] [facility], [facility], Level 4 [place] [address] other normal Unit (Primary [address]) [place], [place] [id number] Social History Tobacco Use Types Packs/Day Years Used Date Smoking Tobacco: Never Smokeless Tobacco: Never Alcohol Use Standard Drinks/Week Comments No 0 (1 standard drink = 0.6 oz pure alcoho l) Sex Assigned at Date Recorded Not on file documented as of this encounter Last Filed Vital Signs Vital Sign Reading Time Taken Comments Blood Pressure 143/85 12/04/2013 1725 EDT Pulse 72 12/04/2013 1725 EDT Temperature 36 ??C (96.8 ??F) 12/04/2013 1700 EDT Respiratory Rate 18 12/04/2013 1725 EDT Oxygen Saturation - - Inhaled Oxygen Concentration - - Weight - - Height - - Body Mass Index - - documented in this encounter Functional Status Cognitive Status Response Date of Assessment Because of a physical, mental, or emotional condition, do Ye s 01/10/2011 you have serious difficulty concentrating, remembering, or making decisions? (5 years old or older) documented as of this encounter Medications at Time of Discharge [...] Care documented in this encounter Progress Notes JarrodAlessia Garces CNM - 12/04/2013 5658 EDT S: Sent from office for preeclamptic work-up. Denies headache, vision changes, RUQ or epigastric pain. Has had increased swelling in ankles for past 4 days. No regular ctx, bleeding or LOF. +FM. Here with 2 year old daughter and no belongings, would like to come back tomorrow if induction is necessary. Had preeclamptic work-up 11/10/13 for blood pressure of 140/80, LFTs were stable, 24 hour urine protein on 11/13/2013 was 403 mg. O: BP 143/85 Pulse 72 Temp(Src) 36 ??C (96.8 ??F) (Tympanic) Resp 18 LMP 03/02/2013 Range BP: (130-143)/(85-96) UCs: Acontractile FHR: Baseline 120, moderate variability, + accels, no decels SVE: Deferred, 3-4/80%/-1 in office earlier today Results for orders placed during the hospital encounter of 12/04/13 (from the past 24 hour(s)) HEMAGRAM Collection Time 12/04/13 16:15 Result Value Range WBC 11.34 4.0 - 12.4 K/cmm RBC 4.58 3.86 - 5.04 M/cmm Hemoglobin 12.0 11.6 - 15.2 gm/dl HCT 36.9 34.9 - 44.4 % MCV 81 81 - 98 fl MCH 26.2 (*) 26.7 - 33.3 pg MCHC 32.6 32.1 - 35.9 gm/dl PLT 218 141 - 320 K/cmm RDW-CV 14.6 11.7 - 14.6 % BUN Collection Time 12/04/13 16:15 Result Value Range BUN 6 (*) 10 - 26 mg/dl CREATININE Collection Time 12/04/13 16:15 Result Value Range Creatinine 0.60 0.52 - 1.04 mg/dl GFR, Calculated >60 >60 ml/min/1.73m2 URIC ACID Collection Time 12/04/13 16:15 Result Value Range Uric Acid 4.2 2.2 - 7.7 mg/dl AST Collection Time 12/04/13 16:15 Result Value Range AST 21 15 - 46 U/L ALT Collection Time 12/04/13 16:15 Result Value Range ALT 31 9 - 52 U/L LDH Collection Time 12/04/13 16:15 Result Value Range LDH 364 313 - 618 U/L FIBRINOGEN Collection Time 12/04/13 16:15 Result Value Range Fibrinogen 598 (*) 171 - 384 mg/dl BLOOD BANK SPECIMEN HOLD Collection Time 12/04/13 16:15 Result Value Range Hold BB Spec will exp at 23:59, 3 days from collect date URINALYSIS Collection Time 12/04/13 16:27 Result Value Range Color, UA Yellow Clarity, UA Clear Glucose, UA Neg Neg Bilirubin, UA Neg Neg Ketones, UA Neg Neg Specific Piru, Urine 1.010 1.001 - 1.035 Blood, UA Neg Neg pH, UA 7.0 4.6 - 8.0 Protein, UA Neg Neg Urobilinogen, UA 0.2 0.2 - 1.0 E.U./dl Nitrite, UA Neg Neg Leuk Esterase 1+ (*) Neg URINE MICROSCOPIC Collection Time 12/04/13 16:27 Result Value Range WBC, UA 1 to 5 0 - 5 /HPF RBC, UA less than 1 0 - 5 /HPF Squam Epithel, UA Frequent (*) None seen /HPF Renal Epithel, UA None seen None seen /HPF Bacteria, UA None seen None seen /HPF Crystals, UA None seen Casts, UA None seen UA Comment Microscopic results Mucus, UA Present CREATININE, URINE RANDOM Collection Time 12/04/13 16:28 Result Value Range Creatinine, Urn [place] 56.7 TOTAL PROTEIN, URINE RANDOM Collection Time 12/04/13 16:28 Result Value Range Tot Prot,Ur Random 15 POCT URINE DIPSTICK Collection Time 12/04/13 14:59 Result Value Range Color YELLOW Clarity, UA Clear Glucose Neg Neg Bilirubin Neg Neg Ketones Neg Neg Specific Piru 1.015 1.001 - 1.035 Blood Neg Neg pH 7.0 4.6 - 8.0 Protein Neg Neg Urobilinogen 0.2 0.2 - 1.0 E.U./dl Nitrite Neg Neg Leuk Esterase 1+ (*) Neg Tech ID [id number] A: 28 yo at 39w1d with preeclampsia without severe features Urine protein creatinine ratio today 0.26, LFTs stable, no evidence of hemoconcentration or hemolysis. Michael's Score 7+ Reactive NST, FHR Cat I O pos/GBS neg P: Discussed with Dr. Zepeda who recommends induction tonight. Pt strongly prefers to go home, gather belongs and arrange childcare. Since she is medically stable Dr. Zepeda okay with waiting until tomorrow morning for induction. Patient is first priority for IOL in the morning, nursing aware. Discharge to home, instructions reviewed: pt will call inshore undersea warfare officer at 8:30 if hasn't heard from L&D Candace Calderon RN - 12/04/2013 1544 EDT 1545 Sent up from the office by Debbie Jiménez cnm to check for pre eclampsia. No fluid loss, no bleeding, occasional cramps. No headache, epigastric pain or vision changes B/p 138/96. FHR category 1 at this time 1630 Labs sent blood and urine. NST done FHR category 1. occasional contractions. 138/89 1700 Protein/ creat ratio .26. Labs WNL. Notifies Myles Chapito Garces CNM/ B/P 142/94 She will be in to talk with patient. 1800 CNM in and cervix favorable at 3/4 cm in office. Given the option of being induced now or in the morning. They live in [place] which is 2 hours away. documented in this encounter Plan of Treatment Scheduled Referrals Name Type Priority Associated Order Schedule Diagnoses PROVIDER FOLLOW-UP Outpatient Referral Routine Or dered: INSTRUCTIONS 12/04/2013 PROVIDER FOLLOW-UP Outpatient Referral Routine Or dered: INSTRUCTIONS 12/04/2013 documented as of this encounter Procedures Procedure Name Priority Date/Time Associated Comments Diagnosis TYPE AND SCREEN Routine 12/05/2013 12:17 Results for this EDT procedure are i n the results section. PROTEIN, TOTAL, Routine 12/04/2013 16:28 Results for this RANDOM, URINE EDT procedure are in the results section. CREATININE, URINE Routine 12/04/2013 16:28 Result s for this RANDOM EDT procedure are i n the results section. URINE MICROSCOPIC Routine 12/04/2013 16:27 Result s for this EDT procedure are i n the results section. URINALYSIS WITH STAT 12/04/2013 16:27 Results for this MICROSCOPIC IF EDT procedure are in POSITIVE the results section. FIBRINOGEN STAT 12/04/2013 16:15 Results for this EDT procedure are i n the results section. COMPLETE BLOOD COUNT STAT 12/04/2013 16:15 Res ults for this EDT procedure are i n the results section. BLOOD BANK HOLD STAT 12/04/2013 16:15 Results for this EDT procedure are i n the results section. URIC ACID STAT 12/04/2013 16:15 Results for this EDT procedure are i n the results section. BUN STAT 12/04/2013 16:15 Results for this EDT procedure are i n the results section. ALT STAT 12/04/2013 16:15 Results for this EDT procedure are i n the results section. AST STAT 12/04/2013 16:15 Results for this EDT procedure are i n the results section. LDH STAT 12/04/2013 16:15 Results for this EDT procedure are i n the results section. CREATININE STAT 12/04/2013 16:15 Results for this EDT procedure are i n the results section. documented in this encounter Results TYPE AND SCREEN (12/05/2013 12:17 EDT) P athologist Signature ABO O [facility] Rh Factor Positive [facility] Antibody Negative [facility] Comment: Specimen expires 23:59 12/08/19 14 Specimen (Source) Anatomical Collection Method Collection Time Re ceived Time Location / / Volume Laterality 12/05/2013 12:17 EDT Provider Unknown BLOOD BANK TESTS Performing Organization Address City/State/ZIP Code Phon e Number [facility] [address] [facility] [place] [address] [facility] TOTAL PROTEIN, URINE RANDOM (12/04/2013 16:28 EDT) athologist Signature Tot Prot,Ur 15 mg/dl [facility] Random LAB Specimen Anatomical Collection Method Collection Time Receive d Time (Source) Location / / Volume Laterality Urine URINE / Unknown 12/04/2013 16:28 12/05/19 14 (substance) EDT 16:33 EDT Alessia Sierra HOME SERVICE DEMONSTRATOR CNM URINALYSIS ORDERABLES Performing Organization Address City/[facility] Phon e Number [facility] [address] [place] [address] SERVICES [facility] [address] [place] [address] CREATININE, URINE RANDOM (12/04/2013 16:28 EDT) athologist Signature Creatinine, Urn 56.7 mg/dl [facility] [place] [facility] Specimen Anatomical Collection Method Collection Time Receive d Time (Source) Location / / Volume Laterality Urine URINE / Unknown 12/04/2013 16:28 12/05/19 14 (substance) EDT 16:33 EDT Alessia Sierra APRN CN URINALYSIS ORDERABLES Performing Organization Address City/[facility] Phon e Number [facility] [address] [place] [address] SERVICES [facility] [address] [place] [address] (ABNORMAL) URINE MICROSCOPIC (12/04/2013 16:27 EDT) [facility] gist Method Time Signature WBC, UA 1 to 5 0 - 5 [facility] /HPF [facility] RBC, UA less than 1 0 - 5 [facility] /HPF [facility] Squam Frequent (A) None seen [facility] Epithel, UA /HPF [facility] Renal None seen None seen [facility] Epithel, UA /HPF [facility] Bacteria, UA None seen None seen [facility] /HPF [facility] Crystals, UA None seen /HPF [facility] Hyaline None seen /LPF [facility] Casts, UA [facility] UA Comment Microscopic [facility] Comment: are unreliable on urines unrefrig >2hrs or refrig >8hrs. Mucus, UA Present [facility] Specimen Anatomical Collection Method Collection Time Receive d Time (Source) Location / / Volume Laterality 12/04/2013 16:27 12/04/2013 EDT 16:33 EDT Alessia Sierra APRN [facility] URINALYSIS ORDERABLES Performing Organization Address City/[facility]/ZIP Code Phon e Number [facility] [address] [place] [address] SERVICES [facility] [address] [place] [address] (ABNORMAL) URINALYSIS (12/04/2013 16:27 EDT) athologist Signature Color, UA Yellow [facility] Clarity, UA Clear [facility] Glucose, UA Neg Neg [facility] Bilirubin, UA Neg Neg [facility] Ketones, UA Neg Neg [facility] Specific 1.010 1.001 - [facility] Piru, Urine 1.035 LAB Blood, UA Neg Neg [facility] pH, UA 7.0 4.6 - 8.0 [facility] Protein, UA Neg Neg [facility] Urobilinogen, 0.2 0.2 - 1.0 [facility] UA E.U./dl LAB Nitrite, UA Neg Neg [facility] Leuk Esterase 1+ (A) Neg [facility] Specimen Anatomical Collection Method Collection Time Receive d Time (Source) Location / / Volume Laterality Urine URINE / Unknown 12/04/2013 16:27 12/05/19 14 (substance) EDT 16:33 EDT Alessia Sierra APRN [facility] URINALYSIS ORDERABLES Performing Organization Address City/[facility]/ZIP Code Phon e Number [facility] [address] [place] [address] SERVICES [facility] [address] [place] [address] BLOOD BANK SPECIMEN HOLD (12/04/2013 16:15 EDT) athologist Signature Hold BB Spec will [facility] exp at BLOOD BANK 23:59, 3 days from collect date Comment: NIKI SPECIMEN EXPIRES @ 23.59 ON 12/07/13 Specimen (Source) Anatomical Collection Method Collection Time Re ceived Time Location / / Volume Laterality Blood specimen 12/04/2013 16:15 (specimen) EDT Alessia Sierra APRN [facility] BLOOD BANK TESTS Performing Organization Address City/State/ZIP Code Phon e Number [facility] [address] [facility] [place] [address] [facility] (ABNORMAL) FIBRINOGEN (12/04/2013 16:15 EDT) athologist Signature Fibrinogen 598 (H) 171 - 384 [facility] mg/dl LAB Specimen Anatomical Collection Method Collection Time Receive d Time (Source) Location / / Volume Laterality Blood specimen 12/04/2013 16:15 4 (specimen) EDT 16:25 EDT Alessia Sierra APRN CNM HEMATOLOGY & PF4 ORDERA BLES Performing Organization Address [facility] Code Phon e Number [facility] [address] [place] [address] SERVICES [facility] [address] [place] [address] LDH (12/04/2013 16:15 EDT) athologist Signature LDH 364 313 - 618 [facility] U/L LAB Specimen Anatomical Collection Method Collection Time Receive d Time (Source) Location / / Volume Laterality Blood specimen 12/04/2013 16:15 4 (specimen) EDT 16:25 EDT Alessia Sierra APRN CNM CHEMISTRY & BLOOD GAS O RDERABLES Performing Organization Address City/[facility]/ZIP Code Phon e Number [facility] [address] [place] [address] SERVICES [facility] [address] [place] [address] ALT (12/04/2013 16:15 EDT) P athologist Signature ALT 31 9 - 52 U/L [facility] Specimen Anatomical Collection Method Collection Time Receive d Time (Source) Location / / Volume Laterality Blood specimen 12/04/2013 16:15 4 (specimen) EDT 16:25 EDT Alessia Sierra APRN CNM CHEMISTRY & BLOOD GAS O RDERABLES Performing Organization Address City/[facility]/ZIP Code Phon e Number [facility] [address] [place] [address] SERVICES [facility] [address] [place] [address] AST (12/04/2013 16:15 EDT) athologist Signature AST 21 15 - 46 U/L [facility] Specimen Anatomical Collection Method Collection Time Receive d Time (Source) Location / / Volume Laterality Blood specimen 12/04/2013 16:15 4 (specimen) EDT 16:25 EDT Alessia Sierra APRN CNM CHEMISTRY & BLOOD GAS O RDERABLES Performing Organization Address City/State/ZIP Code Phon e Number [facility] [address] [place] [address] SERVICES [facility] [address] [place] [address] URIC ACID (12/04/2013 16:15 EDT) athologist Signature Uric Acid 4.2 2.2 - 7.7 [facility] mg/dl LAB Specimen Anatomical Collection Method Collection Time Receive d Time (Source) Location / / Volume Laterality Blood specimen 12/04/2013 16:15 4 (specimen) EDT 16:25 EDT Alessia Sierra APRN CNM CHEMISTRY & BLOOD GAS O RDERABLES Performing Organization Address City/[facility]/ZIP Code Phon e Number [facility] [address] [place] [address] SERVICES [facility] [address] [place] [address] CREATININE (12/04/2013 16:15 EDT) athologist Signature Creatinine 0.60 0.52 - [facility] 1.04 mg/dl LAB GFR, Calculated >60 >60 [facility] ml/min/1.7 LAB 3m2 Specimen Anatomical Collection Method Collection Time Receive d Time (Source) Location / / Volume Laterality Blood specimen 12/04/2013 16:15 4 (specimen) EDT 16:25 EDT Alessia Sierra APRN CNM CHEMISTRY & BLOOD GAS O RDERABLES Performing Organization Address City/[facility]/ZIP Code Phon e Number [facility] [address] [place] [address] SERVICES [facility] [address] [place] [address] (ABNORMAL) BUN (12/04/2013 16:15 EDT) athologist Signature BUN 6 (L) 10 - 26 [facility] mg/dl LAB Specimen Anatomical Collection Method Collection Time Receive d Time (Source) Location / / Volume Laterality Blood specimen 12/04/2013 16:15 4 (specimen) EDT 16:25 EDT Alessia Sierra APRN, CNM CHEMISTRY & BLOOD GAS O RDERABLES Performing Organization Address City/[facility]/ZIP Code Phon e Number [facility] [address] [place] [address] SERVICES [facility] [address] [place] [address] (ABNORMAL) HEMAGRAM (12/04/2013 16:15 EDT) athologist Signature WBC 11.34 4.0 - 12.4 [facility] K/cmm LAB RBC 4.58 3.86 - 5.04 [facility] M/cmm LAB Hemoglobin 12.0 11.6 - 15.2 [facility] gm/dl LAB HCT 36.9 34.9 - 44.4 [facility] % LAB MCV 81 81 - 98 fl [facility] LAB MCH 26.2 (L) 26.7 - 33.3 [facility] pg LAB MCHC 32.6 32.1 - 35.9 [facility] gm/dl LAB PLT 218 141 - 320 [facility] K/cmm LAB RDW-CV 14.6 11.7 - 14.6 [facility] % LAB Specimen Anatomical Collection Method Collection Time Receive d Time (Source) Location / / Volume Laterality Blood specimen 12/04/2013 16:15 4 (specimen) EDT 16:25 EDT Alessia Sierra APRN, CNM HEMATOLOGY & PF4 ORDERA BLES Performing Organization Address [facility]/ZIP [facility] Phon e Number [facility] [address] [place] [address] SERVICES [facility] [address] [place] [address] documented in this encounter Visit Diagnoses Diagnosis Supervision of other normal - Primary documented in this encounter Orders Diet Count Last Ordered Date First Ordered Date DISCHARGE DIET 1 12/04/2013 Nursing Count Last Ordered Date First Ordered Date BATHING INSTRUCTIONS 1 12/04/2013 Admission Count Last Ordered Date First Ordered Date STATUS: NON-MEDICARE OB INPATIENT 1 12/04/2013 ADMISSION Transfer Count Last Ordered Date First Ordered Date NOTIFY PPS OF DISCHARGE COMPLETE 1 12/04/2013 Discharge Count Last Ordered Date First Ordered Date DISCHARGE PATIENT 1 12/04/2013 Legal Count Last Ordered Date First Ordered Date MISCELLANEOUS DISCHARGE INSTRUCTIONS 1 12/04/2013 documented in this encounter Care Teams Phone Circuit Operator Relationship Specialty Start Date End Date Bozena Rivas DO PCP - General 09/27/[address] [place] [id number] documented as of this encounter
--- OUTSIDE RECORDS SUMMARY | 2022-06-30 10:08 | XMS_ITS | Encounter Summary ---
:1985 Author Organization [facility] Address [address] [place] [address] Care Team Providers Name Role Phone Evelyn Bozena Viera DO Primary Care Provider Reason for Visit Reason Onset Date Comments Vaginal Bleeding 10/30/2013 Encounter Details Date Type Department Care Team Description 10/30/2013 Telephone [facility] Zita Guerrero RN Vaginal Bleeding Services - [facility] [address] [place], [place] [address] Social History Tobacco Use Types Packs/Day Years [...] this encounter Miscellaneous Notes Telephone Encounter - Zita Guerrero RN - 10/30/2013 0806 EDT TC from Kaela after seeing tiny spots of bright red blood on toilet tissue this morning after urinating. + movement. Denies regular contractions, had one seamus-hick's contractions during the night. Has not seen any further bleeding or leakage of fluid. Advised to call back if notices any further bleeding today and/or regular contractions/ROM. documented in this encounter Plan of Treatment Not on filedocumented as of this encounter Visit Diagnoses Not on filedocumented in this encounter Care Teams Computer Programming Supervisor Relationship Specialty Start Date End Date Bozena Rivas DO PCP - General 09/27/[address] [place] [phone] documented as of this encounter
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
--- OUTSIDE RECORDS SUMMARY | 2022-06-30 10:08 | XMS_ITS | Encounter Summary ---
:1985 Author Organization [facility] Address [address] [place] [address] Care Team Providers Name Role Phone Rivas Bozena Maximiliano CASTELLANO Primary Care Provider Reason for Visit Reason Comments Routine Visit Encounter Details Date Type Department Care Team Description 11/13/2013 Routine [facility] Debbie Padilla APRN [place]: 36w1d Women's Services - [address] [address] [place], [place] [address] (Wo rk) Social History Tobacco Use Types Packs/Day Years Used Date Smoking Tobacco: Never Smokeless Tobacco: Never Alcohol Use Standard Drinks/Week Comments No 0 (1 standard drink = 0.6 oz pure alcoho l) Sex Assigned at Date Recorded Not on file documented as of this encounter Last Filed Vital Signs Vital Sign Reading Time Taken Comments Blood Pressure 130/68 11/13/2013 1320 EDT Pulse - - Temperature - - Respiratory [...] documented as of this encounter Progress Notes Debbie Padilla CNM - 11/13/2013 1334 EDT S: [facility] Denies vision changes, RUQ and chest pain, no headache O: Vitals: BP: 130/68 mmHg Fundal Height (cm): 39 cm Heart Rate: 145 Movement: Present Presentation: Vertex +1 edema of LE, +2 DTRs PEC labs - WNL 24h protein - 403 A: 28 yo @ 36w1d O pos/ GBS neg Gestational HTN and proteinuria P: Discussed with Dr. Muniz - BP does not mett criteria for PEC, elevated 24h urine protein is only criteria. Therefore can still work, does not need weekly testing and no IOL - at this time. Information was discussed with Kaela Casillas Wednesday for APV and check BP documented in this encounter Plan of Treatment Not on filedocumented as of this encounter Visit Diagnoses Diagnosis Supervision of other normal - Primary documented in this encounter Care Teams Woodwork Salvage Inspector Relationship Specialty Start Date End Date Bozena Rivas DO PCP - General 09/27/[address] [place] [address] documented as of this encounter
--- OUTSIDE RECORDS SUMMARY | 2022-06-30 10:08 | XMS_ITS | Encounter Summary ---
:1985 Author Organization [facility] Address [address] [place] [address] Care Team Providers Name Role Phone Evelyn Bozena Viera DO Primary Care Provider Reason for Visit Reason Onset Date Comments Foot Swelling 11/20/2013 Encounter Details Date Type Department Care Team Description 11/20/2013 Telephone [facility] Zita Guerrero RN Foot Swelling Services - [facility] [address] [place], [place] [id number] Social History Tobacco Use Types Packs/Day Years [...] Telephone Encounter - Zita Guerrero RN - 11/20/2013 0823 EDT TC from Kaela at 37+1 weeks because of sudden swelling of feet and ankles starting last night, I don't have ankles anymore. Denies headache, epigastric pain or visual changes. B/P normal at last week's visit. Reassured that swelling by itself is okay but needs to call if accompanied by any other symptoms. documented in this encounter Plan of Treatment Not on filedocumented as of this encounter Visit Diagnoses Not on filedocumented in this encounter Care Teams System Dispatcher Relationship Specialty Start Date End Date Bozena Rivas DO PCP - General 09/27/[address] [place] [id number] documented as of this encounter
--- OUTSIDE RECORDS SUMMARY | 2022-06-30 10:08 | XMS_ITS | Encounter Summary ---
:1985 Author Organization [facility] Address [address] [place] [address] Care Team Providers Name Role Phone Rivas Bozena Viera DO Primary Care Provider Reason for Visit Reason Comments Routine Visit Sharp pain on low abd area. Encounter Details Date Type Department Care Team Description 11/17/[address] [facility] Michelle Juarez, [place]: 36w5d Women's Services [id number] [place] [address], [place] [phone] (Wo rk) Social History Tobacco Use Types Packs/Day Years Used Date Smoking Tobacco: Never Smokeless Tobacco: Never Alcohol Use Standard Drinks/Week Comments No 0 (1 standard drink = 0.6 oz pure alcoho l) Sex Assigned at Date Recorded Not on file documented as of this encounter Last Filed Vital Signs Vital Sign Reading Time Taken Comments Blood Pressure 100/70 11/17/2013 0839 EDT Pulse - - Temperature - - Respiratory Rate - - Oxygen Saturation - - Inhaled Oxygen Concentration - - Weight 102.8 kg (226 lb 9.6 oz) 11/17/2013 0839 EDT Height - - Body Mass Index 37.71 08/09/2013 0800 EST documented in this encounter Functional Status Cognitive Status Response Date of Assessment Because of a physical, mental, or emotional condition, do Ye s 01/10/2011 you have serious difficulty concentrating, remembering, or making decisions? (5 years old or older) documented as of this encounter Progress Notes Michelle Juarez CNM - 11/17/2013 0948 EDT S/ APV at 36+5 weeks. Feels well. C/O symphysis pubis pain. Denies bleeding, leaking or contractions- or swelling or H/As. +FM but less strong than before. O/ Vitals: BP: 100/70 mmHg Weight : 102.785 kg (226 lb 9.6 oz) Fundal Height (cm): 37 cm Heart Rate: 144 Movement: Decreased Presentation: Vertex A/ IUP 36+5 weeks Normotensive - GBS P/ FM counts if concerned and when to call reviewed. Reassured regarding her BP - clearly a larger cuff works better. Recommended she take care with movement that stresses SP especially with move coming up ( no lifting, etc). RTO 1 week documented in this encounter Plan of Treatment Not on filedocumented as of this encounter Visit Diagnoses Diagnosis Supervision of other normal - Primary documented in this encounter Care Teams Real Estate Lawyer Relationship Specialty Start Date End Date Bozena Rivas DO PCP - General 09/27/[address] [place] [phone] documented as of this encounter
--- OUTSIDE RECORDS SUMMARY | 2022-06-30 10:08 | XMS_ITS | Encounter Summary ---
:1985 Author Organization [facility] Address [address] [place] [address] Care Team Providers Name Role Phone Evelyn Bozena Viera DO Primary Care Provider Reason for Visit Reason Comments Routine Visit Encounter Details Date Type Department Care Team Description 12/04/2013 Routine [facility] Debbie Padilla APRN [place]: 39w1d Women's Services - [address] [address] [place], [place] [address] (Wo rk) Social History Tobacco Use Types Packs/Day Years Used Date Smoking Tobacco: Never Smokeless Tobacco: Never Alcohol Use Standard Drinks/Week Comments No 0 (1 standard drink = 0.6 oz pure alcoho l) Sex Assigned at Date Recorded Not on file documented as of this encounter Last Filed Vital Signs Vital Sign Reading Time Taken Comments Blood Pressure 130/90 12/04/2013 1453 EDT Pulse - - Temperature - - Respiratory Rate - - Oxygen Saturation - - Inhaled Oxygen Concentration - - Weight 106.6 kg (235 lb) 12/04/2013 1453 EDT Height - - Body Mass Index 39.11 08/09/2013 0800 EST documented in this encounter Functional Status Cognitive Status Response Date of Assessment Because of a physical, mental, or emotional condition, do Ye s 01/10/2011 you have serious difficulty concentrating, remembering, or making decisions? (5 years old or older) documented as of this encounter Progress Notes Debbie Padilla CNM - 12/04/2013 1524 EDT S: [place] Significant edema of LE Denies COFFMAN, CP, RUQ pain. Vision changes O: Vitals: BP: 130/90 mmHg Weight : 106.595 kg (235 lb) Fundal Height (cm): 41 cm Heart Rate: 145 Movement: Present Presentation: Vertex Dilation: 3.5 Effacement (%): 80 Station: -1 +3 edema, Ho's neg, DTRs - +2 Had 24h urine - 11/13 - proteinuria - 403 A: 28 yo @ 39w1d O pos GBS neg Gestational edema and gestational edema P: Send to L&D for PEC workup / if abnormal - IOL is indicated Favorable cervix - booked for IOL on 12/06 F/U 1 week - if unable to be induced R/T census Angela Lane LPN - 12/04/2013 1514 EDT Results for orders placed in visit on 12/04/13 POCT URINE DIPSTICK Result Value Range Color YELLOW Clarity, UA Clear Glucose Neg Neg Bilirubin Neg Neg Ketones Neg Neg Specific [place] 1.015 1.001 - 1.035 Blood Neg Neg pH 7.0 4.6 - 8.0 Protein Neg Neg Urobilinogen 0.2 0.2 - 1.0 E.U./dl Nitrite Neg Neg Leuk Esterase 1+ (*) Neg Tech ID [id number] documented in this encounter Plan of Treatment Not on filedocumented as of this encounter Procedures Procedure Name Priority Date/Time Associated Diagnosis Comme nts POCT URINE Routine 12/04/2013 14:59 Unspecified Results for this DIPSTICK, CLINITEK EDT complication of proced ure are in , antepartum the re sults section. documented in this encounter Results (ABNORMAL) POCT URINE DIPSTICK (12/04/2013 14:59 EDT) [facility] Method Time Signature Color YELLOW [facility] Clarity, UA Clear [facility] Glucose Neg Neg [facility] Bilirubin Neg Neg [facility] Ketones Neg Neg [facility] Specific [place] 1.015 1.001 - [facility] 1.035 [facility] Blood Neg Neg [facility] pH 7.0 4.6 - 8.0 [facility] Protein Neg Neg [facility] Urobilinogen 0.2 0.2 - 1.0 [facility]dl [facility] Nitrite Neg Neg [facility] Leuk Esterase 1+ (A) Neg [facility] print cutter ID [id number] [facility] Comment: Test performed at [facility] [place] Specimen Anatomical Collection Method Collection Time Receive d Time (Source) Location / / Volume Laterality Urine 12/04/2013 14:59 12/04/2013 (substance) EDT 15:05 EDT Alessia Sierra APRN [facility] POINT OF CARE TEST SHAWN SHAHID Performing Organization Address City/State/ZIP Code Phon e Number [facility] [address] [place] [address] SERVICES [facility] [address] [place] [address] documented in this encounter Visit Diagnoses Diagnosis Unspecified complication of , a ntepartum documented in this encounter Care Teams Flight Technician Relationship Specialty Start Date End Date Bozena Rivas DO PCP - General 09/27/[address] [place] [address] documented as of this encounter
--- OUTSIDE RECORDS SUMMARY | 2022-06-30 10:08 | XMS_ITS | Encounter Summary ---
:1985 Author Organization [facility] Address [address] [place] [address] Care Team Providers Name Role Phone Evelyn Bozena Maximiliano CASTELLANO Primary Care Provider Reason for Visit Reason Comments Routine Visit Encounter Details Date Type Department Care Team Description 08/16/2013 Routine [facility] Erlinda Martinez, [place]: 23w3d Women's Services [address] [address] [place], [place] [address] (Wo rk) Social History Tobacco Use Types Packs/Day Years Used Date Smoking Tobacco: Never Smokeless Tobacco: Never Alcohol Use Standard Drinks/Week Comments No 0 (1 standard drink = 0.6 oz pure alcoho l) Sex Assigned at Date Recorded Not on file documented as of this encounter Last Filed Vital Signs Vital Sign Reading Time Taken Comments Blood Pressure 114/70 08/16/2013 0850 EST Pulse - - Temperature - - Respiratory Rate - - Oxygen Saturation - - Inhaled Oxygen Concentration - - Weight 99.3 kg (219 lb) 08/16/2013 0850 EST Height - - Body Mass Index 36.44 08/09/2013 0800 EST documented in this encounter Functional Status Cognitive Status Response Date of Assessment Because of a physical, mental, or emotional condition, do Ye s 01/10/2011 you have serious difficulty concentrating, remembering, or making decisions? (5 years old or older) documented as of this encounter Progress Notes Erlinda Martinez CNM - 08/16/2013 0980 EST S: Kaela is feeling much better since kidney stone episode. Assumed that it passed though she didn't see it. Since leaving the hospital she used one dilaudid that day and none since. She has been drinking a lot, peeing every 30 min. Thinks that she hadn't been drinking as much as she should have beenfor a couple weeks when she was working from home. O: Vitals: BP: 114/70 mmHg Weight : 99.338 kg (219 lb) Fundal Height (cm): 25 cm Heart Rate: 150 Movement: Present A: 27 yo @ 23+3 wks P: RTO in 4 wks. Labs ordered. documented in this encounter Plan of Treatment Not on filedocumented as of this encounter Visit Diagnoses Diagnosis Supervision of other normal - Primary documented in this encounter Care Teams Guest Service Aide Relationship Specialty Start Date End Date Bozena Rivas DO PCP - General 05/26/11 09/26/[address] [place] [address] documented as of this encounter
--- OUTSIDE RECORDS SUMMARY | 2022-06-30 10:08 | XMS_ITS | Encounter Summary ---
:1985 Author Organization [facility] Address [address] [place] [address] Care Team Providers Name Role Phone RivasBozena Maximiliano CASTELLANO Primary Care Provider Reason for Visit Reason Comments Routine Visit Encounter Details Date Type Department Care Team Description 10/13/2013 Routine [facility] Maximiliano Mcbride MD [place]: 31w5d Women's Services - [address], [address], [address] [place], [place] [address] [place] [address] [phone] (Wo rk) Social History Tobacco Use Types Packs/Day Years Used Date Smoking Tobacco: Never Smokeless Tobacco: Never Alcohol Use Standard Drinks/Week Comments No 0 (1 standard drink = 0.6 oz pure alcoho l) Sex Assigned at Date Recorded Not on file documented as of this encounter Last Filed Vital Signs Vital Sign Reading Time Taken Comments Blood Pressure 118/62 10/13/2013 0853 EDT Pulse - - Temperature - - Respiratory Rate - - Oxygen Saturation - - Inhaled Oxygen Concentration - - Weight 100.7 kg (222 lb) 10/13/2013 0853 EDT Height - - Body Mass Index 36.94 08/09/2013 0800 EST documented in this encounter Functional Status Cognitive Status Response Date of Assessment Because of a physical, mental, or emotional condition, do Ye s 01/10/2011 you have serious difficulty concentrating, remembering, or making decisions? (5 years old or older) documented as of this encounter Progress Notes Justine Mcbride MD - 10/13/2013 0908 EDT CC: 28 y.o. @ 31w5d S: Doing well. Denies ctxs, LOF, VB. +FM O: BP 118/62 Wt 100.699 kg (222 lb) BMI 36.94 kg/m2 LMP 03/02/2013 FH difficult to assess given body habitus FHT 145 A/P 28 y.o. @ 31w5d Labs UTD labor precautions reviewed RTC 2w Justine Mcbride MD, 10/13/2013 9:08 documented in this encounter Plan of Treatment Not on filedocumented as of this encounter Visit Diagnoses Diagnosis Supervision of other normal - Primary documented in this encounter Care Teams Piling Cutter Relationship Specialty Start Date End Date Bozena Rivas DO PCP - General 09/27/[address] [place] [phone] documented as of this encounter
--- OUTSIDE RECORDS SUMMARY | 2022-06-30 10:08 | XMS_ITS | Encounter Summary ---
:1985 Author Organization [facility] Address [address] [place] [address] Care Team Providers Name Role Phone Evelyn Bozena Maximiliano CASTELLANO Primary Care Provider Reason for Visit Reason Comments Routine Visit No concerns Encounter Details Date Type Department Care Team Description 07/19/2013 Routine [facility] Erlinda Martinez, [place]: 19w3d Women's Services [id number] [place] [address], [place] [address] (Wo rk) Social History Tobacco Use Types Packs/Day Years Used Date Smoking Tobacco: Never Smokeless Tobacco: Never Alcohol Use Standard Drinks/Week Comments No 0 (1 standard drink = 0.6 oz pure alcoho l) Sex Assigned at Date Recorded Not on file documented as of this encounter Last Filed Vital Signs Vital Sign Reading Time Taken Comments Blood Pressure 110/78 07/19/2013 0943 EST Pulse - - Temperature - - Respiratory Rate - - Oxygen Saturation - - Inhaled Oxygen Concentration - - Weight 95.7 kg (211 lb) 07/19/2013 0943 EST Height - - Body Mass Index 35.11 04/26/2013 0921 EDT documented in this encounter Functional Status Cognitive Status Response Date of Assessment Because of a physical, mental, or emotional condition, do Ye s 01/10/2011 you have serious difficulty concentrating, remembering, or making decisions? (5 years old or older) documented as of this encounter Progress Notes Erlinda Martinez CNM - 07/19/2013 1244 EST S: Kaela is feeling well. Had ultrasound and its a girl. Had a stomach virus over the weekend and took peptobismal, but since found out that it isn't recommended. She is feeling better, but still has heartburn. Took a lot of Tums last and got a kidney stone . Wondering if something else would be better. O: Vitals: BP: 110/78 mmHg Weight : 95.709 kg (211 lb) Fundal Height (cm): 20 cm Heart Rate: 160 Movement: Present A: 27 yo @ 19+3 wks P: Pepcid ok to use. RTO in 4 wks. documented in this encounter Plan of Treatment Not on filedocumented as of this encounter Visit Diagnoses Diagnosis Supervision of other normal - Primary documented in this encounter Care Teams Adjuster And Inspector Relationship Specialty Start Date End Date Bozena Rivas DO PCP - General 05/26/11 09/26/[address] [place] [address] documented as of this encounter
--- OUTSIDE RECORDS SUMMARY | 2022-06-30 10:08 | XMS_ITS | Encounter Summary ---
:1985 Author Organization [facility] Address [address] [place] [address] Care Team Providers Name Role Phone RivasBozena Primary Care Provider Encounter Details Date Type Department Care Team Description 08/15/2013 Orders Only [facility] Zita Guerrero RN Super vision of other Women's Services - [facility] Paia (Primary Dx) [address] [place], [place] [id number] Social History Tobacco Use Types Packs/Day Years [...] Not on filedocumented as of this encounter Results (ABNORMAL) HEMAGRAM (09/12/2013 14:45 EST) P athologist Signature WBC 11.97 4.0 - 12.4 [facility] RBC 4.27 3.86 - 5.04 [facility] Hemoglobin 11.3 (L) 11.6 - 15.2 [facility] gm/dl LAB HCT 34.4 (L) 34.9 - 44.4 [facility] % LAB MCV 80 (L) 81 - 98 fl [facility] MCH 26.5 (L) 26.7 - [...] 4 (specimen) EST 16:12 EST Erlinda Martinez WEBSPHERE ADMINISTRATOR CNM HEMATOLOGY & PF4 ORDERABLE S Performing Organization Address City/State/ZIP Code Phon e Number [facility] [address] [place] [address] SERVICES [facility] [address] [place] [address] documented in this encounter Visit Diagnoses Diagnosis Supervision of other normal - Primary documented in this encounter Care Teams Bleacher Lard Relationship Specialty Start Date End Date Bozena Rivas DO PCP - General 05/26/11 09/26/[address] [place] [address] documented as of this encounter
--- OUTSIDE RECORDS SUMMARY | 2022-06-30 10:08 | XMS_ITS | Encounter Summary ---
:1985 Author Organization [facility] Address [address] [place] [address] Care Team Providers Name Role Phone Rivas Bozena Maximiliano CASTELLANO Primary Care Provider Encounter Details Date Type Department Care Team Description 11/10/2013 Phlebotomy Only [facility] Ocean Lifeguard, Super vision of other normal ; - [facility] Outpatient Transient hypertension of pr egnancy, antepartum [address] [place] [address] Social History Tobacco Use Types Packs/Day Years [...] Name Priority Date/Time Associated Diagnosis Comme nts PROTEIN, TOTAL, 24 Routine 11/13/2013 6:22 Supervision of othe r Results for this HR, URINE EDT normal procedure are in Transient the results hypertension of section. , antepartum PREECLAMPTIC PROFILE Routine 11/10/2013 13:08 Supervision of o ther EDT normal COMPLETE BLOOD COUNT Routine 11/10/2013 13:08 Supervision of o ther Results for this EDT normal procedure a re in the results section. URIC ACID Routine 11/10/2013 13:08 Supervision of other Res ults for this EDT normal procedure a re in the results section. BUN Routine 11/10/2013 13:08 Supervision of other Res ults for this EDT normal procedure a re in the results section. ALT Routine 11/10/2013 13:08 Supervision of other Res ults for this EDT normal procedure a re in the results section. AST Routine 11/10/2013 13:08 Supervision of other Res ults for this EDT normal procedure a re in the results section. CREATININE Routine 11/10/2013 13:08 Supervision of other Res ults for this EDT normal procedure a re in the results section. documented in this encounter Results (ABNORMAL) TOTAL PROTEIN, URINE 24HR (11/13/2013 6:22 EDT) athologist Signature Tot Prot,Ur 13 mg/dl [facility] Tot Prot,24h 403 (H) <150 [facility] Calc. mg/24hr LAB Specimen Anatomical Collection Method Collection Time Receive d Time (Source) Location / / Volume Laterality Urine URINE / Unknown 11/13/2013 6:22 4 9:00 (substance) EDT EDT Michelle Juarez APRN, CNM URINALYSIS ORDERABLES Performing Organization Address City/State/ZIP Code Phon e Number [facility] [address] [place] [address] SERVICES [facility] [address] [place] [address] URIC ACID (11/10/2013 13:08 EDT) athologist Signature Uric Acid 4.5 2.2 - 7.7 [facility] mg/dl LAB Specimen Anatomical Collection Method Collection Time Receive d Time (Source) Location / / Volume Laterality 11/10/2013 13:08 11/10/2013 EDT 13:23 EDT Michelle Juarez APRN, CNM CHEMISTRY & BLOOD GAS ORDE RABLES Performing Organization Address City/State/ZIP Code Phon e Number [facility] [address] [place] [address] SERVICES [facility] [address] [place] [address] CREATININE (11/10/2013 13:08 EDT) athologist Signature Creatinine 0.57 0.52 - [facility] 1.04 mg/dl LAB GFR, Calculated >60 >60 [facility] ml/min/1.7 LAB 3m2 Specimen Anatomical Collection Method Collection Time Receive d Time (Source) Location / / Volume Laterality 11/10/2013 13:08 11/10/2013 EDT 13:23 EDT Michelle E Trevorton FRONT DESK OFFICER CNM CHEMISTRY & BLOOD GAS ORDE RABLES Performing Organization Address City/State/ZIP Code Phon e Number [facility] [address] [place] [address] SERVICES [facility] [address] [place] [address] (ABNORMAL) BUN (11/10/2013 13:08 EDT) athologist Signature BUN 7 (L) 10 - 26 [facility] mg/dl LAB Specimen Anatomical Collection Method Collection Time Receive d Time (Source) Location / / Volume Laterality 11/10/2013 13:08 11/10/2013 EDT 13:23 EDT Michelle E Trevorton FRONT DESK OFFICER CNM CHEMISTRY & BLOOD GAS ORDE RABLES Performing Organization Address City/State/ZIP Code Phon e Number [facility] [address] [place] [address] SERVICES [facility] [address] [place] [address] AST (11/10/2013 13:08 EDT) athologist Signature AST 22 15 - 46 U/L [facility] Specimen Anatomical Collection Method Collection Time Receive d Time (Source) Location / / Volume Laterality 11/10/2013 13:08 11/10/2013 EDT 13:23 EDT Michelle E Ann FRONT DESK OFFICER CNM CHEMISTRY & BLOOD GAS ORDE RABLES Performing Organization Address City/State/ZIP Code Phon e Number [facility] [address] [place] [address] SERVICES [facility] [address] [place] [address] ALT (11/10/2013 13:08 EDT) athologist Signature ALT 15 9 - 52 U/L [facility] Specimen Anatomical Collection Method Collection Time Receive d Time (Source) Location / / Volume Laterality 11/10/2013 13:08 11/10/2013 EDT 13:23 EDT Michelle Juarez APRN CNM CHEMISTRY & BLOOD GAS SHAWN SHAHID Performing Organization Address City/State/ZIP Code Phon e Number [facility] [address] [place] [address] SERVICES [facility] [address] [place] [address] (ABNORMAL) HEMAGRAM (11/10/2013 13:08 EDT) P athologist Signature WBC 13.35 (H) 4.0 - 12.4 [facility] K/cmm LAB RBC 4.52 3.86 - [facility] 5.04 M/cmm LAB Hemoglobin 11.9 11.6 - [facility] 15.2 gm/dl LAB HCT 35.7 34.9 - [facility] 44.4 % LAB MCV 79 (L) 81 - 98 fl [facility] MCH 26.4 (L) 26.7 - [facility] 33.3 pg LAB MCHC 33.5 32.1 - [facility] 35.9 gm/dl LAB PLT 247 141 - 320 [facility] K/cmm LAB RDW-CV 14.0 11.7 - [facility] 14.6 % LAB Specimen Anatomical Collection Method Collection Time Receive d Time (Source) Location / / Volume Laterality 11/10/2013 13:08 11/10/2013 EDT 13:23 EDT Michelle Juarez APRN CNM HEMATOLOGY & PF4 ORDERABLE S Performing Organization Address City/State/ZIP Code Phon e Number [facility] [address] [place] [address] SERVICES [facility] [address] [place] [address] documented in this encounter Visit Diagnoses Diagnosis Supervision of other normal Transient hypertension of , ant epartum documented in this encounter Care Teams Chemical Research Worker Relationship Specialty Start Date End Date Bozena Rivas DO PCP - General 09/27/[address] [place] [address] documented as of this encounter
--- OUTSIDE RECORDS SUMMARY | 2022-06-30 10:08 | XMS_ITS | Encounter Summary ---
:1985 Author Organization [facility] Address [address] [place] [address] Care Team Providers Name Role Phone Bozena Rivas DO Primary Care Provider Reason for Visit Reason Onset Date Comments Nasal Congestion 11/02/2013 Encounter Details Date Type Department Care Team Description 11/02/2013 Telephone [facility] Remi Otoole, Nasal Congestion Services - [facility] RN [address] [place] [address] Social History Tobacco Use Types Packs/Day [...] this encounter Miscellaneous Notes Telephone Encounter - April Otoole, RN - 11/02/2013 0820 EDT TC from Kaela who reports nasal congestion x 1 week and not getting any better. Also reports green and thick discharge from nose. Denies fever. Minimal coughing- like a tickle in her throat. Vicks nothelping. Advised to try nasal saline spray and/or breathe right nasal strips at night for congestions. Advised that if not seeing any improvement in the next couple of days to call PCP- may be possiblesinus infection. Patient verbalized understanding. documented in this encounter Plan of Treatment Not on filedocumented as of this encounter Visit Diagnoses Not on filedocumented in this encounter Care Teams Technology Coordinator Relationship Specialty Start Date End Date Bozena Rivas DO PCP - General 09/27/[address] [place] [phone] documented as of this encounter
--- OUTSIDE RECORDS SUMMARY | 2022-06-30 10:08 | XMS_ITS | Encounter Summary ---
:1985 Author Organization [facility] Address [address] [place] [address] Care Team Providers Name Role Phone Evelyn Bozena Viera DO Primary Care Provider Encounter Details Date Type Department Care Team Description 01/12/2017 Results Only [facility]- [facility]ez Zuniga, CURRICULUM COACH [phone] [address] [place] [address] (Wo rk) Social History Tobacco Use Types [...] Name Priority Date/Time Associated Diagnosis Comme nts PAP TEST- RESULT Routine 01/12/2017 0:00 EDT Resu lts for this ONLY procedure are i n the results section. documented in this encounter Results PAP TEST- RESULT ONLY (01/12/2017 0:00 EDT) Component Value Ref Test Analysis Performed At [facility] Method Time Signature Pathology CYTOPATHOLOGY REPORT [facility] Report: CENTER Reports generated via electronic interface contain origina l data; LABORATORY however they are lacking the format of the original report. SERVICES Caution should be taken when reading/interpreting unformatte d reports. Name: ? KAELA CHASE ? Accession #: ? [id number] ? : ? 1985 (Age: 3 2) ??F ?Collect Date: ? 01/12/2017 ? Location: ? [facility] ? Receive Date: ? 01/13/2017 ? Provider: [facility] Copy to: ? Final Report SPECIMEN ADEQUACY ? Satisfactory for Evaluation - transformation zone component present - scant squamous epithelial component secondary to excessive inflammation GENERAL CATEGORIZATION ? Negative for Intraepithelial Lesion or Malignancy ?? Last Menstrual Period: 01/06/17 Specimen/Source: ??Pap Test, Cervix/Endocervix, ThinPr ep Imaging System with manual evaluation Document reviewed and electronically signed by: ? SANDY Haskins(ASCP) ? Report ??Date: 01/21/2017 15:15 HPV with Pap Test ? Date Ordered: ? 01/21/2017 ? Status: ?? Signed Out ?Date Complete: ? 01/22/2017 ? By: ??System I nterface ? Date Reported: ? 01/22/2017 ? Interpretation RESULT: Negative for HPV. No E6 or E7 mRNA is detected from HPV types 16,18,31,33,35, 39,45,51,52,56,58,59,66, and 68 by automotive general sales manager mediated amplification. Comments Document reviewed and electronically signed by: ? System Interface ? Report date: 01/22/2017 By the signature above, the attending physician certifies th at he/she has personally conducted a gross and/or microscopic examin ation of the described specimens and rendered or confirmed the above diagnosis. End of Report Specimen (Source) Anatomical Location Collection Method / Collectio n Time Received Time / Laterality Volume 01/12/2017 01/13/2017 [facility] CURRICULUM COACH PATHOLOGY ORDERABLES Performing Organization Address City/State/ZIP Code Phon e Number [facility] [address] [place] [address] SERVICES documented in this encounter Visit Diagnoses Not on filedocumented in this encounter Care Teams Data Analytics Analyst Relationship Specialty Start Date End Date Bozena Rivas DO PCP - General 09/27/[address] [place] [phone] documented as of this encounter
--- OUTSIDE RECORDS SUMMARY | 2022-06-30 10:08 | XMS_ITS | Encounter Summary ---
:1985 Author Organization [facility] Address [address] [place] [address] Care Team Providers Name Role Phone Bozena Rivas Primary Care Provider Reason for Visit Reason Comments Decreased Movement Encounter Details Date Type Department Care Team Description 11/27/2013 Hospital Encounter [facility] Rodriguez, Ke joyce Langley MD [address] [facility], [address] [place] [address] Supervision of Birthing Center Anabel Ivy MD other normal Unit (Primary [address] [facility] D[facility]) [place] [address] Social History Tobacco Use Types Packs/Day Years Used Date Smoking Tobacco: Never Smokeless Tobacco: Never Alcohol Use Standard Drinks/Week Comments No 0 (1 standard drink = 0.6 oz pure alcoho l) Sex Assigned at Date Recorded Not on file documented as of this encounter Last Filed Vital Signs Vital Sign Reading Time Taken Comments Blood Pressure 126/75 11/27/2013 1305 EDT Pulse 79 11/27/2013 1305 EDT Temperature - - Respiratory Rate 18 11/27/2013 1305 EDT Oxygen Saturation - - Inhaled Oxygen [...] older) documented as of this encounter Discharge Instructions Discharge Instr - ActivityStElsi macario CNM - 11/27/2013 13:23 EDT Discharge Instructions L&D Call your provider if: ?? Your water breaks ?? There's any bright red bleeding ?? Your are not feeling the baby move ?? Severe headaches and/or blurry vision ?? Contractions are close together and strong, or you are having constant pain Medications: ?? Continue any present medication ?? Follow the instructions on the packaging Activity: ?? Drink plenty of fluids and eat well ?? As tolerated, lie on your side while resting/napping Keep your regularly schedule appointment Elsi Peacock CNM 11/27/2013 13:22 documented in this encounter Medications at Time [...] Care documented in this encounter Progress Notes Elsi Peacock CNM - 11/27/2013 1312 EDT S: Worried might be leaking fluid and hasn't felt baby move since 02:00. Had breakfast and was at work. No contractions or abdominal pain. Foot/ankle edema a little better today. Mild headache she attributes to stress. 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 O: 28 yo with EDDY 12/10/13 by LMP/U/S appears comfortable, supported by Jeison. BP 132/86 Pulse 91 Resp 18 LMP 03/02/2013 Rpt B/P 126/75 No UCs on EFM FHR baseline 130s, moderate variability, reactive accels (feels baby move now), no decels SSE: neg pool, neg nitrazine, neg fern. White secretions in vault Cx appears closed. A: at 38w1d No evidence of SROM Category 1 FHR tracing/reactive NST P: Home/return to work Keep next PNV Call/return with fluid leak, labor sx or decreased FM Aware of PEC sx Debbie Anaya, RN - 11/27/2013 1250 EDT Pt admitted to rm 3 with CO leaking of fluid since this am Also has been not feeling the baby move 1245 FHR cat 1 1300 B Steaurer in to evaluate pt SSE neg pool neg nitrazine Neg fern Pt now feeling baby move Cat 1EFM 1315 EFM off Pt given discharge instructions questons answered by Anna Peacock CNM 1330 pt discharged documented in this encounter Plan of Treatment Not on filedocumented as of this encounter Visit Diagnoses Diagnosis Supervision of other normal - Primary documented in this encounter Orders Admission Count Last Ordered Date First Ordered Date STATUS: OUTPATIENT OBSERVATION SERVICES 1 11/28/19 14 Transfer Count Last Ordered Date First Ordered Date NOTIFY PPS OF DISCHARGE COMPLETE 1 11/27/2013 Discharge Count Last Ordered Date First Ordered Date DISCHARGE PATIENT 1 11/27/2013 documented in this encounter Care Teams Project Director Relationship Specialty Start Date End Date Bozena Rivas DO PCP - General 09/27/[address] [place] [phone] documented as of this encounter
--- OUTSIDE RECORDS SUMMARY | 2022-06-30 10:08 | XMS_ITS | Encounter Summary ---
:[address] [facility] Address [address] [place] [address] Care Team Providers Name Role Phone Evelyn Bozena Viera DO Primary Care Provider Reason for Visit Reason Onset Date Comments Rupture of Membranes 11/27/2013 ?leaking Encounter Details Date Type Department Care Team Description 11/27/2013 Telephone [facility] iZta Guerrero RN Ruptu re of Membranes Women's Services - [facility] (?le aking) [place] [address] [place] [address] Social History Tobacco Use Types Packs/Day Years [...] Telephone Encounter - Zita Guerrero RN - 11/27/2013 1151 EDT TC from Kaela at 38+1 weeks calling because of small amount clear, watery fluid from vagina starting around 0630 today. Denies contractions. Last remembers movement at around 0230 this morning. Jen Peacock CNM manager instrumentation, notified and will follow-up with Kaela. documented in this encounter Plan of Treatment Not on filedocumented as of this encounter Visit Diagnoses Not on filedocumented in this encounter Care Teams Domestic Technician Relationship Specialty Start Date End Date Bozena Rivas DO PCP - General 09/27/[address] [place] [phone] documented as of this encounter
--- OUTSIDE RECORDS SUMMARY | 2022-06-30 10:08 | XMS_ITS | Encounter Summary ---
:1985 Author Organization [facility] Address [address] [place] [address] Care Team Providers Name Role Phone Evelyn Bozena Arnie CASTELLANO Primary Care Provider Reason for Visit Reason Comments Post- Care Encounter Details Date Type Department Care Team Description 01/16/2014 Office Visit [facility] Elsi Peacock Postparnie rtum Women's Services - [place], APR N CN examination following [facility] [address] vaginal delivery [address] [facility] (Primary Dx) [place] [address] [facility] [phone] Pavilion, [address] [place] [address] (Wo rk) Social History Tobacco Use Types Packs/Day Years Used Date Smoking Tobacco: Never Smokeless Tobacco: Never Alcohol Use Standard Drinks/Week Comments No 0 (1 standard drink = 0.6 oz pure alcoho l) Sex Assigned at Date Recorded Not on file documented as of this encounter Last Filed Vital Signs Vital Sign Reading Time Taken Comments Blood Pressure 132/72 01/16/2014 1331 EDT Pulse - - Temperature - - Respiratory Rate - - Oxygen Saturation - - Inhaled Oxygen Concentration - - Weight 90.8 kg (200 lb 3.2 oz) 01/16/2014 1331 EDT Height - - Body Mass Index 33.32 12/06/2013 1100 EDT documented in this encounter [...] or older) documented as of this encounter Ordered Prescriptions Prescription Sig Dispensed Refills Start Date End Date norethindrone (MICRONOR) Take 1 Tab by mouth 84 Tab 4 0.35 mg tablet daily. documented in this encounter Progress Notes Elsi Peacock CNM - 01/17/2014 1649 EDT Kaela Talavera is a 28 y.o. female who presents 6 week(s) post following a spontaneous vaginal delivery The delivery was at 39w2d gestational weeks. Induction of labor for GHTN and mild pre-eclampsia via pitocin augmentation and AROM. On 12/05/13 she had an unmedicated of a female Arabella, over 1st degree laceration, 8# 6 oz/3799 gms, Apgars 9 & 9. Family adjusting very well! Would like Micronor for now but is considering either an IUD or Nexplanon. going very well although letdown sometimes is painful/intense. She feels she has good milk transfer and no blockage of ducts. Anesthesia: Local for repair only. course has been uncomplicated Baby's course has been doing well without problems. Baby is feeding breast. Current Status: Bleeding: no bleeding. Bowel function is normal. Bladder function is normal incontinence? No depression screening: negative. EPDS = 2 Patient is not sexually active. Contraception method is abstinence. Returning to work: Yes, family/social support is good I have fully reviewed the and intrapartum course, delivery events, and above subjective information. Additional provider comments none. Medical History on file. Past Medical History Diagnosis Date ??? PCOS (polycystic ovarian syndrome) ??? Hypertension due to drug family history of hypertension and had high blood pressure while on control pill ??? EDDY 01/03/2011. ??? Calculus of kidney 02/17/2011 No current outpatient prescriptions on file. Allergies: Allergies Allergen Reactions ??? Penicillins Rash ??? Bee Pollens Large swelling/redness Review of Systems Pertinent items are noted in Subjective/HPI Objective: BP 132/72 Wt 90.81 kg (200 lb 3.2 oz) BMI 33.31 kg/m2 LMP 03/02/2013 Pap not indicated. Pap neg 08/2012 General: alert, cooperative, no distress Breasts: Inspection negative. No nipple discharge or bleeding. No masses or nodularity palpable Lungs: clear to auscultation bilaterally Heart: regular rate and rhythm, S1, S2 normal, no murmur, click, rub or gallop Abdomen: soft, non-tender; bowel sounds normal; no masses, no organomegaly Vulva: normal, Well healed lacerations. Lingering suture material present. Vagina: Normal vagina. No discharge, exudate, lesion, erythema Cervix: no lesions, multiparous appearance, no cervical motion tenderness Corpus: normal size, contour, position, consistency, mobility, non-tender, anteverted Adnexa: Normal adnexa, No mass, fullness, tenderness Rectal Exam: Not performed. Assessment: 6 week exam. on demand No contraindication to POP, IUD or Nexplanon Plan: 1. Contraception: oral progesterone-only contraceptive for now X 12 mo Rx. Review of mechanism of action for IUDs/implant. Potential risks of methos (IUD), procedure reviewed for IUDs. 2. Call if desires pre-cert for methods. Info given. 3. Follow up: 1 year AE documented in this encounter Plan of Treatment Not on filedocumented as of this encounter Visit Diagnoses Diagnosis examination following vaginal delivery - Primary Routine follow-up documented in this encounter Discontinued Medications Medication Sig Discontinue Reason Start Date End Date psyllium, 5.8 G, Take 1 Packet by Therapy completed (METAMUCIL) packet mouth daily. famotidine (PEPCID) 20 Take 20 mg by mouth Therapy completed 01/16/2014 mg tabletIndications: daily as needed. heartburn Indications: HEARTBURN docusate sodium Take 100 mg by mouth Therapy completed 01/16/2014 (COLACE) 100 mg capsule daily. calcium carbonate Take 1-2 Tabs by Therapy completed 12/06/2013 0 01/16/2014 (TUMS) 200 mg calcium mouth every 4 hours (500 mg) tablet, as needed (gerd). chewable documented as of this encounter Care Teams Payroll Specialist Relationship Specialty Start Date End Date Bozena Rivas DO PCP - General 09/27/[address] [place] [phone] documented as of this encounter
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
--- OUTSIDE RECORDS SUMMARY | 2022-06-30 10:08 | XMS_ITS | Encounter Summary ---
:1985 Author Organization [facility] Address [address] [place] [address] Care Team Providers Name Role Phone Bozena Rivas Primary Care Provider Encounter Details Date Type Department Care Team Description 11/08/2013 Orders Only [facility] Zita Guerrero RN Super vision of other Women's Services - [facility] (Primary Dx) [address] [place], [place] [id number] Social History Tobacco Use Types Packs/Day Years [...] on filedocumented as of this encounter Results GROUP B SUSCEPTIBILITY FOR PCN ALLERGY (11/10/2013 12:42 EDT) Component Value Ref Test Analysis Performed At [facility] Range Method Time Signature Specimen Vaginal and KING Description Rectal NOEMY LAB Result NO GROUP B BETA KING STREPTOCOCCI NOEMY LAB ISOLATED Report Status 11/12/2013 Final [facility] Specimen Anatomical Collection Method Collection Time Receive d Time (Source) Location / / Volume Laterality Other (qualifier DOUCHE WITH RECTAL 11/10/2013 12:42 0 11/10/2013 value) AND VAGINAL EDT 13:25 EDT FITTINGS / Unknown Michelle Juarez SHU CNM MICROBIOLOGY - GENERAL ORD ERABLES Performing Organization Address City/State/ZIP Code Phon e Number [facility] [address] [place] [address] SERVICES [facility] [address] [place] [address] documented in this encounter Visit Diagnoses Diagnosis Supervision of other normal - Primary documented in this encounter Care Teams Child Nurse Relationship Specialty Start Date End Date Bozena Rivas DO PCP - General 09/27/[address] [place] [id number] documented as of this encounter
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
--- OUTSIDE RECORDS SUMMARY | 2022-06-30 10:08 | XMS_ITS | Encounter Summary ---
:1985 Author Organization [facility] Address [address] [place] [address] Care Team Providers Name Role Phone Evelyn Bozena Viera DO Primary Care Provider Encounter Details Date Type Department Care Team Description 11/13/2013 Results Only [facility] Michelle Juarez, Women's Services [address] [address] [address], [place] [address] (Wo rk) Social History Tobacco [...] Name Priority Date/Time Associated Diagnosis Comme nts URINE INFORMATION Routine 11/13/2013 6:22 EDT Res ults for this procedure are i n the results section. documented in this encounter Results URINE INFORMATION (11/13/2013 6:22 EDT) P athologist Signature Period 24 hrs [facility] Specimen Volume 3,100 mls [facility] Specimen Anatomical Collection Method Collection Time Receive d Time (Source) Location / / Volume Laterality 11/13/2013 6:22 11/13/2013 9 :00 EDT EDT Michelle Jr Ann IRELAND CNM URINALYSIS ORDERABLES Performing Organization Address City/State/ZIP Code Phon e Number [facility] [address] [place] [address] SERVICES [facility] [address] [place] [address] documented in this encounter Visit Diagnoses Not on filedocumented in this encounter Care Teams Regional Rehabilitation Director Relationship Specialty Start Date End Date Bozena Rivas DO PCP - General 09/27/[address] [place] [address] documented as of this encounter
--- OUTSIDE RECORDS SUMMARY | 2022-06-30 10:09 | XMS_ITS | Encounter Summary ---
:1985 Author Organization [facility] Address [address] [place] [address] Care Team Providers Name Role Phone None, Provider Primary Care Provider Unavailable Reason for Visit Reason Comments Urinary Frequency Encounter Details Date Type Department Care Team Description 11/17/2010 Routine [facility] Debbie Padilla APRN GA: 33w2d Women's Services - [address] [address] [address], [place] [address] (Wo rk) Social History Tobacco Use Types Packs/Day Years Used Date Smoking Tobacco: Never Smokeless Tobacco: Never Alcohol Use Standard Drinks/Week Comments No 0 (1 standard drink = 0.6 oz pure alcoho l) Sex Assigned at Date Recorded Not on file documented as of this encounter Last Filed Vital Signs Vital Sign Reading Time Taken Comments Blood Pressure 138/76 11/17/2010 1421 EDT Pulse - - Temperature - - Respiratory Rate - - Oxygen Saturation - - Inhaled Oxygen Concentration - - Weight 96.9 kg (213 lb 9.6 oz) 11/17/2010 1421 EDT Height - - Body Mass Index 35.54 09/22/2010 1826 EST documented in this encounter Progress Notes Debbie Padilla CN - 11/17/2010 1448 EDT S: This AM @ work - frequency of urination - voiding q 5-10 minutes - not a lot coming out No ctx, +FM O: BP 138/76 Wt 96.888 kg (213 lb 9.6 oz) S=D A: 25 yo G1 @ 33w2d With UTI symptoms P: Will call in [id number] bid x 7d to [facility] [place] - based on symptoms Increase fluid, cranberry extract Watch BP F/U [address] LPN - 11/17/2010 1432 EDT Recent Labs Basename 11/17/10 1429 ??? COLOR YELLOW ??? CLARITYU Clear ??? GLUCOSEUAPOC Neg ??? BILIRUBIN Neg ??? KETONES Neg ??? SPECGRAV 1.010 ??? BLOOD 1+* ??? PHUA 7.0 ??? PROTEINUAPOC Neg ??? UROBILINOGEN 0.2 ??? NITRITE Neg ??? LEUKESTER Neg documented in this encounter Plan of Treatment Not on filedocumented as of this encounter Visit Diagnoses Diagnosis Supervision of normal first documented in this encounter Care Teams Business Development Recruiter Relationship Specialty Start Date End Date None, Provider PCP - General 05/19/10 05/25/11 documented as of this encounter
--- OUTSIDE RECORDS SUMMARY | 2022-06-30 10:09 | XMS_ITS | Encounter Summary ---
:[address] [facility] Address [address] [place] [address] Care Team Providers Name Role Phone Rivas Bozena A Primary Care Provider Encounter Details Date Type Department Care Team Description 04/26/2013 Phlebotomy Only [facility] Occupational Therapy Assist, Super vision of [facility] Outpatient normal [address] [place] [address] Social History Tobacco Use Types Packs/Day Years [...] Name Priority Date/Time Associated Diagnosis Comme nts BACTERIAL CULTURE, Routine 04/26/2013 12:30 Supervision of oth er Results for this URINE EDT normal procedure a re in the results section. GLUCOSE RYAN, DOSE Routine 04/26/2013 10:33 Result s for this EDT procedure are i n the results section. BB STUDY Routine 04/26/2013 10:33 Result s for this EDT procedure are i n the results section. PROFILE Routine 04/26/2013 10:33 Supervision of other EDT normal GLUCOSE-1HR Routine 04/26/2013 10:33 Supervision of other GESTATIONAL SCREEN EDT normal SYPHILIS SEROLOGY Routine 04/26/2013 10:33 Result s for this EDT procedure are i n the results section. GLUCOSE-1HR Routine 04/26/2013 10:33 Results for this GESTATIONAL SCREEN EDT procedure are in the results section. DIFFERENTIAL Routine 04/26/2013 10:33 Results for this EDT procedure are i n the results section. RUBELLA IGG ANTIBODY Routine 04/26/2013 10:33 Res ults for this EDT procedure are i n the results section. HEPATITIS B SURFACE Routine 04/26/2013 10:33 Resu lts for this ANTIGEN EDT procedure are i n the results section. COMPLETE BLOOD COUNT Routine 04/26/2013 10:33 Res ults for this EDT procedure are i n the results section. HIV 1/2 ANTIGEN AND Routine 04/26/2013 10:33 Supervision of ot her Results for this ANTIBODY, 4TH EDT normal procedure are in GENERATION the results section. documented in this encounter Results BACTERIAL CULTURE, URINE (04/26/2013 12:30 EDT) [facility] Likez Method Time Signature Specimen Urine [facility] Result Less than [facility] 10,000 [facility] CFU/ml Mixed gram positive growth Report Status 04/27/2013 [facility] Specimen Anatomical Collection Method Collection Time Receive d Time (Source) Location / / Volume Laterality Urine URINE / Unknown 04/26/2013 12:30 04/26/20 13 (substance) EDT 14:30 EDT Alessia Sierra APRN, CNM MICROBIOLOGY - GENERAL ORDERABLES Performing Organization Address City/State/ZIP Code Phon e Number [facility] [address] [place] [address] SERVICES [facility] [address] [place] [address] SYPHILIS SEROLOGY (04/26/2013 10:33 EDT) [facility] Likez Method Time Signature Syphilis Interpretation: [facility] Serology Nonreactive [facility] Comment: Reference Range: Nonreactive Specimen Anatomical Collection Method Collection Time Receive d Time (Source) Location / / Volume Laterality 04/26/2013 10:33 04/26/2013 EDT 12:10 EDT Alessia Sierra APRN, CNM IMMUNOLOGY AND SEROLOGY ORDERABLES Performing Organization Address [facility]/ZIP [facility] Phon e Number [facility] [address] [place] [address] SERVICES [facility] [address] [place] [address] RUBELLA IGG ANTIBODY (04/26/2013 10:33 EDT) athologist Signature Rubella IgG Ab Positive [facility] Comment: Positive results suggest immunity to Rub zev infection. Specimen Anatomical Collection Method Collection Time Receive d Time (Source) Location / / Volume Laterality 04/26/2013 10:33 04/26/2013 EDT 12:10 EDT Alessia Sierra APRN [facility] CHEMISTRY & BLOOD GAS O RDERABLES Performing Organization Address [facility] Phon e Number [facility] [address] [place] [address] SERVICES [facility] [address] [place] [address] HEPATITIS B SURFACE ANTIGEN (04/26/2013 10:33 EDT) athologist Signature Hepatitis B Negative [facility] Comment: Reference Range: Negative Specimen Anatomical Collection Method Collection Time Receive d Time (Source) Location / / Volume Laterality 04/26/2013 10:33 04/26/2013 EDT 12:10 EDT Alessia Sierra APRN [facility] CHEMISTRY & BLOOD GAS O RDERABLES Performing Organization Address [facility] Code Phon e Number [facility] [address] [place] [address] SERVICES [facility] [address] [place] [address] BB STUDY (04/26/2013 10:33 EDT) athologist Signature ABO and Rh Type O POS [facility] Antibody Screen Neg [facility] Specimen Anatomical Collection Method Collection Time Receive d Time (Source) Location / / Volume Laterality 04/26/2013 10:33 04/26/2013 EDT 12:10 EDT Alessia Sierra APRN [facility] BLOOD BANK TESTS Performing Organization Address [facility] Phon e Number [facility] [address] [place] [address] SERVICES [facility] [address] [place] [address] GLUCOSE-1HR GESTATIONAL SCREEN (04/26/2013 10:33 EDT) P athologist Signature Glucose-1hr 89 50 - 135 [facility] mg/dl LAB Comment: A one hour glucose greater than or equal to 135 mg/dl should be further evaluated with a forma l three hour glucose tolerance test. Specimen Anatomical Collection Method Collection Time Receive d Time (Source) Location / / Volume Laterality 04/26/2013 10:33 04/26/2013 EDT 12:10 EDT Alessia Sierra APRN, CNM CHEMISTRY & BLOOD GAS O RDERABLES Performing Organization Address City/State/ZIP Code Phon e Number [facility] [address] [place] [address] SERVICES [facility] [address] [place] [address] (ABNORMAL) DIFFERENTIAL (04/26/2013 10:33 EDT) Patholo gist Method Time Signature Neutrophils 83.3 (H) 45.5 - [facility] 79.7 % [facility] Lymphocytes 11.2 (L) 15.0 - [facility] 46.8 % [facility] Monocytes 5.2 1.8 - [facility] 12.0 % [facility] Eosinophils 0.2 (L) 0.6 - 6.9 [facility] % [facility] Basophils 0.1 (L) 0.2 - 1.4 [facility] % [facility] ABS Neutrophils 12.23 (H) 2.20 - [facility] 8.85 [facility] K/cmm ABS Lymphs 1.65 1.09 - [facility] 3.30 [facility] K/cmm ABS Monocytes 0.77 0.1 - 0.8 [facility] K/cmm [facility] ABS Eosinophils 0.04 0.03 - [facility] 0.61 [facility] K/cmm ABS Basophils 0.02 0.01 - [facility] 0.11 [facility] K/cmm Type of Diff: Automated [facility] Specimen Anatomical Collection Method Collection Time Receive d Time (Source) Location / / Volume Laterality 04/26/2013 10:33 04/26/2013 EDT 12:10 EDT Cormany M Chapito-Nobes LANGUAGE PATHOLOGIST CNM HEMATOLOGY & PF4 ORDERA BLES Performing Organization Address City/[facility]/ZIP Code Phon e Number [facility] [address] [place] [address] SERVICES [facility] [address] [place] [address] (ABNORMAL) HEMAGRAM (04/26/2013 10:33 EDT) P athologist Signature WBC 14.71 (H) 4.0 - 12.4 [facility] K/cmm LAB RBC 4.98 3.86 - [facility] 5.04 M/cmm LAB Hemoglobin 13.2 11.6 - [facility] 15.2 gm/dl LAB HCT 41.1 34.9 - [facility] 44.4 % LAB MCV 82 81 - 98 fl [facility] MCH 26.5 (L) 26.7 - [facility] 33.3 pg LAB MCHC 32.2 32.1 - [facility] 35.9 gm/dl LAB PLT 274 141 - 320 [facility] K/cmm LAB RDW-CV 13.3 11.7 - [facility] 14.6 % LAB Specimen Anatomical Collection Method Collection Time Receive d Time (Source) Location / / Volume Laterality 04/26/2013 10:33 04/26/2013 EDT 12:10 EDT Alessia Sierra APRN, CNM HEMATOLOGY & PF4 ORDERA BLES Performing Organization Address City/[facility]/ZIP Code Phon e Number [facility] [address] [place] [address] SERVICES [facility] [address] [place] [address] GLUCOSE RYAN, DOSE (04/26/2013 10:33 EDT) P athologist Signature Glucose Dose 50 g [facility] Specimen Anatomical Collection Method Collection Time Receive d Time (Source) Location / / Volume Laterality 04/26/2013 10:33 04/26/2013 EDT 12:10 EDT Alessia Sierra APRN CNM PACKAGES & DNA PROBE OR DERABLES Performing Organization Address City/[facility]/ZIP Code Phon e Number [facility] [address] [place] [address] SERVICES [facility] [address] [place] [address] HIV 1/2 ANTIBODY (04/26/2013 10:33 EDT) P athologist Signature HIV 1/2 Negative [facility] Comment: Reference Range: ??Negative Assayed utilizing [employer] chemiluminescent technology. Specimen Anatomical Collection Method Collection Time Receive d Time (Source) Location / / Volume Laterality Blood specimen 04/26/2013 10:33 3 (specimen) EDT 12:10 EDT Alessia Sierra APRN [facility] IMMUNOLOGY AND SEROLOGY ORDERABLES Performing Organization Address City/State/ZIP Code Phon e Number [facility] [address] [place] [address] SERVICES [facility] [address] [place] [phone] documented in this encounter Visit Diagnoses Diagnosis Supervision of other normal documented in this encounter Care Teams Marketing Coordinator Relationship Specialty Start Date End Date Bozena Rivas DO PCP - General 05/26/11 09/26/[address] [place] [address] documented as of this encounter
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
--- OUTSIDE RECORDS SUMMARY | 2022-06-30 10:09 | XMS_ITS | Encounter Summary ---
:1985 Author Organization [facility] Address [address] [place] [address] Care Team Providers Name Role Phone None, Provider Primary Care Provider Unavailable Encounter Details Date Type Department Care Team Description 03/15/2011 Hospital Encounter [facility] - Kennedy Ramirez, [facility] [id number] [place] [address] [address], [address] [place] [phone] (Wo rk) Social History Tobacco Use Types [...] Start Date End Date acetaminophen (TYLENOL) Take 1 Tab by mouth 0 07/201104/25/2013 650 mg tablet every 4 hours as needed for Pain. doxycycline (VIBRAMYCIN) Take 1 Cap by mouth 28 Cap 0 03/20/2011 100 mg capsule 2 times daily for 14 days. ibuprofen (MOTRIN) 400 mg Take 1 Tab by mouth 0 0 01/11/2011 04/25/2013 tablet every 4 hours as needed for Pain. lansinoh HPA lanolin Apply topically as 0 011 10/21/2011 needed for Other. MULTIVITAMINS W-IRON Take 2 Tabs by mouth 0 07/2904/26/2013 (FLINTSTONES PLUS IRON daily. ORAL) norethindrone (MICRONOR) Take 1 Tab by mouth 84 Tab 4 08/24/2012 0.35 mg tablet daily. documented as of this encounter Discharge Disposition Disposition Code Departure Means Destination Home or Self Longterm documented in this encounter Plan of Treatment Not on filedocumented as of this encounter Visit Diagnoses Not on filedocumented in this encounter Care Teams Digital Media Planner Relationship Specialty Start Date End Date None, Provider PCP - General 05/19/10 05/25/11 documented as of this encounter
--- OUTSIDE RECORDS SUMMARY | 2022-06-30 10:09 | XMS_ITS | Encounter Summary ---
:1985 Author Organization [facility] Address [address] [place] [address] Care Team Providers Name Role Phone None, Provider Primary Care Provider Unavailable Encounter Details Date Type Department Care Team Description 10/03/2010 Hospital Encounter [facility] Debbie Padilla , Supervision of [facility] normal first 1 [facility] [address] [place] [facility] [id number] [place] [address] [address], [address] [place] [address] Social History Tobacco Use Types Packs/Day Years Used Date Smoking Tobacco: Never Smokeless Tobacco: Never Alcohol Use Standard Drinks/Week Comments No 0 (1 standard drink = 0.6 oz pure alcoho l) Sex Assigned at Date Recorded Not on file documented as of this encounter Medications at Time of Discharge Medication Sig Dispensed Refills Start Date End Date calcium carbonate (TUMS) Take 2 Tabs by 0 011 02/17/2011 200 mg (500 mg) Chew mouth as needed. MULTIVITAMINS W-IRON Take 2 Tabs by 0 07/29/2010 04/26/2013 (FLINTSTONES PLUS IRON mouth daily. ORAL) documented as of this encounter Discharge Disposition Disposition Code Departure Means Destination Home or Self Prison documented in this encounter Plan of Treatment Not on filedocumented as of this encounter Procedures Procedure Name Priority Date/Time Associated Diagnosis Comme nts GLUCOSE-1HR Routine 10/03/2010 16:12 Supervision of Results f or this GESTATIONAL SCREEN EST normal first procedure are in the results section. COMPLETE BLOOD COUNT Routine 10/03/2010 16:12 Supervision of R esults for this EST normal first procedure are i n the results section. documented in this encounter Results (ABNORMAL) HEMAGRAM (10/03/2010 16:12 EST) P athologist Signature WBC 13.62 (H) 4.0 - 12.4 [facility] K/cmm LAB RBC 4.06 3.86 - [facility] 5.04 M/cmm LAB Hemoglobin 11.4 (L) 11.6 - [facility] 15.2 gm/dl LAB HCT 33.8 (L) 34.9 - [facility] 44.4 % LAB MCV 83 81 - 98 fl [facility] MCH 28.2 26.7 - [facility] 33.3 pg LAB MCHC 33.8 32.1 - [facility] 35.9 gm/dl LAB PLT 259 141 - 320 [facility] K/cmm LAB RDW-CV 13.3 11.7 - [facility] 14.6 % LAB Specimen Anatomical Collection Method Collection Time Receive d Time (Source) Location / / Volume Laterality Blood specimen 10/03/2010 16:12 1 (specimen) EST 17:49 EST Debbie Padilla APRN, CNM HEMATOLOGY & PF4 ORDERABLES Performing Organization Address City/[facility] Phon e Number [facility] [address] [place] [address] SERVICES [facility] [address] [place] [address] GLUCOSE-1HR GESTATIONAL SCREEN (10/03/2010 16:12 EST) P athologist Signature Glucose Dose 50 g [facility] Glucose-1hr 82 50 - 135 [facility] Gest Scn mg/dl LAB Comment: A one hour glucose greater than or equal to 135 mg/dl should be further evaluated with a formal three hour gluco se tolerance test. Specimen Anatomical Collection Method Collection Time Receive d Time (Source) Location / / Volume Laterality Blood specimen 10/03/2010 16:12 1 (specimen) EST 17:49 EST Debbie Padilla APRN, CNM PACKAGES & DNA PROBE ORDERAB LES Performing Organization Address City/State/ZIP Code Phon e Number [facility] [address] [place] [address] SERVICES [facility] [address] [place] [address] documented in this encounter Visit Diagnoses Diagnosis Supervision of normal first documented in this encounter Care Teams Pond Supervisor Relationship Specialty Start Date End Date None, Provider PCP - General 05/19/10 05/25/11 documented as of this encounter
--- OUTSIDE RECORDS SUMMARY | 2022-06-30 10:09 | XMS_ITS | Encounter Summary ---
:1985 Author Organization [facility] Address [address] [place] [address] Care Team Providers Name Role Phone None, Provider Primary Care Provider Unavailable Reason for Visit Reason Comments Routine Visit Encounter Details Date Type Department Care Team Description 12/10/2010 Routine [facility] Haritha Summers GA: 36w4d [facility] [address] [place], [place] [id number] Social History Tobacco Use Types Packs/Day Years Used Date Smoking Tobacco: Never Smokeless Tobacco: Never Alcohol Use Standard Drinks/Week Comments No 0 (1 standard drink = 0.6 oz pure alcoho l) Sex Assigned at Date Recorded Not on file documented as of this encounter Last Filed Vital Signs Vital Sign Reading Time Taken Comments Blood Pressure 128/80 12/10/2010 1545 EDT Pulse - - Temperature - - Respiratory Rate - - Oxygen Saturation - - Inhaled Oxygen Concentration - - Weight 98.7 kg (217 lb 9.6 oz) 12/10/2010 1545 EDT Height - - Body Mass Index 36.21 09/22/2010 1826 EST documented in this encounter Discharge Disposition Disposition Code Departure Means Destination Auto Discharge documented in this encounter Progress Notes Haritha Summers - 12/10/2010 1556 EDT Baby active. Has pp help, mom to help and fiance. Taking CBE. Leave for 3 months. documented in this encounter Plan of Treatment Not on filedocumented as of this encounter Visit Diagnoses Diagnosis Supervision of normal first documented in this encounter Care Teams Elementary Instructional Coach Relationship Specialty Start Date End Date None, Provider PCP - General 05/19/10 05/25/11 documented as of this encounter
--- OUTSIDE RECORDS SUMMARY | 2022-06-30 10:09 | XMS_ITS | Encounter Summary ---
:1985 Author Organization [facility] Address [address] [place] [address] Care Team Providers Name Role Phone None, Provider Primary Care Provider Unavailable Encounter Details Date Type Department Care Team Description 08/14/2010 Hospital Encounter [facility] Debbie Padilla , Obesity compl - [facility] WASH HELPER CN pregn//puerper 111 [facility] [address] [place], [place] [id number] [place] [address] [address], [address] [place] [address] Social History Tobacco Use Types Packs/Day Years Used Date Smoking Tobacco: Never Alcohol Use Standard Drinks/Week Comments No 0 (1 standard drink = 0.6 oz pure alcoho l) Sex Assigned at Date Recorded Not on file documented as of this encounter Medications at Time of Discharge Medication Sig Dispensed Refills Start Date End Date MULTIVITAMINS W-IRON Take 2 Tabs by 0 07/29/2010 04/26/2013 (FLINTSTONES PLUS IRON mouth daily. ORAL) documented as of this encounter Discharge Disposition Disposition Code Departure Means Destination Home or Self [place] documented in this encounter Plan of Treatment Not on filedocumented as of this encounter Procedures Procedure Name Priority Date/Time Associated Comments Diagnosis GLUCOSE-1HR Routine 08/14/2010 16:09 Obesity compl Results fo r this GESTATIONAL SCREEN EST pregn//puerper pr ocedure are in p the results section. documented in this encounter Results GLUCOSE-1HR GESTATIONAL SCREEN (08/14/2010 16:09 EST) P athologist Signature Glucose Dose 50 g [facility] Glucose-1hr 74 50 - 135 [facility] Gest Scn mg/dl LAB Comment: A one hour glucose greater than or equal to 135 mg/dl should be further evaluated with a formal three hour gluco se tolerance test. Specimen Anatomical Collection Method Collection Time Receive d Time (Source) Location / / Volume Laterality Blood specimen 08/14/2010 16:09 1 (specimen) EST 17:29 EST Debbie Padilla WASH HELPER CNM PACKAGES & DNA PROBE ORDERAB LES Performing Organization Address City/State/ZIP Code Phon e Number [facility] [address] [place] [address] SERVICES [facility] [address] [place] [address] documented in this encounter Visit Diagnoses Diagnosis Obesity complicating , childbir th, or the puerperium, unspecified as to episode of care or not applicable(649.10 ) Obesity complicating , childbir th, or the puerperium, unspecified as to episode of care or not applicable documented in this encounter Care Teams Glued Wood Tester Relationship Specialty Start Date End Date None, Provider PCP - General 05/19/10 05/25/11 documented as of this encounter
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
--- OUTSIDE RECORDS SUMMARY | 2022-06-30 10:09 | XMS_ITS | Encounter Summary ---
:1985 Author Organization [facility] Address [address] [place] [address] Care Team Providers Name Role Phone None, Provider Primary Care Provider Unavailable Reason for Visit Reason Comments Routine Visit Encounter Details Date Type Department Care Team Description 01/09/2011 Routine [facility] Michelle Juarez, [place]: [id number] Women's Services [address] [address] [address], [place] [address] (Wo rk) Social History Tobacco Use Types Packs/Day Years Used Date Smoking Tobacco: Never Smokeless Tobacco: Never Alcohol Use Standard Drinks/Week Comments No 0 (1 standard drink = 0.6 oz pure alcoho l) Sex Assigned at Date Recorded Not on file documented as of this encounter Last Filed Vital Signs Vital Sign Reading Time Taken Comments Blood Pressure 134/70 01/09/2011 1142 EDT Pulse - - Temperature - - Respiratory Rate - - Oxygen Saturation - - Inhaled Oxygen Concentration - - Weight 98.3 kg (216 lb 12.8 oz) 01/09/2011 1142 EDT Height - - Body Mass Index 36.08 09/22/2010 1826 EST documented in this encounter Discharge Disposition Disposition Code Departure Means Destination Admitted to this Hospital documented in this encounter Progress Notes Michelle Juarez CNM - 01/09/2011 1239 EDT S/ Pt has been having more UCs for the past three days. No leaking or bleeding. + FM. Pt tired of being . Open to being induced. Had BPP today WNL Would like membranes stripped if cx ripe. O/Blood pressure 134/70, weight 98.34 kg (216 lb 12.8 oz). See flow VE 4-5 cm/ -1 / 70% Membranes stripped Palp BOW A/ 40+6 week IUP Very ripe cervix P/ Induction scheduled for Wednesday if no labor by then. When to call reviewed. FM counts discussed. documented in this encounter Plan of Treatment Not on filedocumented as of this encounter Visit Diagnoses Diagnosis Supervision of normal first documented in this encounter Care Teams Electrification Adviser Relationship Specialty Start Date End Date None, Provider PCP - General 05/19/10 05/25/11 documented as of this encounter
--- OUTSIDE RECORDS SUMMARY | 2022-06-30 10:09 | XMS_ITS | Encounter Summary ---
:1985 Author Organization [facility] Address [address] [place] [address] Care Team Providers Name Role Phone None, Provider Primary Care Provider Unavailable Reason for Visit Reason Onset Date Comments 11/28/2010 Encounter Details Date Type Department Care Team Description 11/28/2010 Orders Only [facility] Zita Guerrero RN Super vision of normal Women's Services [facility] (Primary Dx) [address] [place], [place] [address] Social History Tobacco Use Types Packs/Day Years Used Date Smoking Tobacco: Never Smokeless Tobacco: Never Alcohol Use Standard Drinks/Week Comments No 0 (1 standard drink = 0.6 oz pure alcoho l) Sex Assigned at Date Recorded Not on file documented as of this encounter Plan of Treatment Not on filedocumented as of this encounter Results GROUP B SUSCEPTIBILITY FOR PCN ALLERGY (12/01/2010 15:23 EDT) Component Value Ref Test Analysis Performed At [facility] Range Method Time Signature Specimen Vaginal and [place] Description Rectal [facility] Result NO GROUP B BETA [place] STREPTOCOCCI [facility] ISOLATED Report Status Final [place] 12/03/2010 [facility] Specimen Anatomical Collection Method Collection Time Receive d Time (Source) Location / / Volume Laterality Other (qualifier 12/01/2010 15:23 011 value) EDT 15:59 EDT Debbie Padilla APRN CNM MICROBIOLOGY - GENERAL ORDER REDDY Performing Organization Address City/State/ZIP Code Phon e Number [facility] [address] [place] [address] SERVICES [facility] [address] [place] [address] documented in this encounter Visit Diagnoses Diagnosis Supervision of normal first - Primary documented in this encounter Care Teams Pin Inserter Relationship Specialty Start Date End Date None, Provider PCP - General 05/19/10 05/25/11 documented as of this encounter
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
--- OUTSIDE RECORDS SUMMARY | 2022-06-30 10:09 | XMS_ITS | Encounter Summary ---
:1985 Author Organization [facility] Address [address] [place] [address] Care Team Providers Name Role Phone None, Provider Primary Care Provider Unavailable Encounter Details Date Type Department Care Team Description 11/17/2010 Results Only [facility] Of Care User [phone] [address] [place] [address] Social History Tobacco Use Types Packs/Day Years [...] Priority Date/Time Associated Diagnosis Comme nts POCT URINALYSIS Routine 11/17/2010 14:29 EDT Resu lts for this procedure are i n the results section. documented in this encounter Results (ABNORMAL) POCT URINALYSIS (11/17/2010 14:29 EDT) [facility] gist Method Time Signature Color YELLOW [facility] Clarity, UA Clear [facility] Glucose Neg NEG [facility] Bilirubin Neg NEG [facility] Ketones Neg NEG [facility] Specific [place] 1.010 1.001 - [place] 1.035 [facility] Blood 1+ (A) NEG [facility] pH 7.0 4.6 - 8.0 [facility] Protein Neg NEG [facility] Urobilinogen 0.2 0.2 - 1.0 [facility] E.U[facility]dl [facility] Nitrite Neg NEG [facility] Leuk Esterase Neg NEG [place] [facility] president and chief commercial officer [place] [id number] [facility] Test performed at [facility] Specimen Anatomical Collection Method Collection Time Receive d Time (Source) Location / / Volume Laterality 11/17/2010 14:29 11/17/2010 EDT 14:31 EDT Of Care User Point POINT OF CARE TEST ORDERABLE S Performing Organization Address City/State/ZIP Code Phon e Number [facility] [address] [place] [address] SERVICES [facility] [address] [place] [address] documented in this encounter Visit Diagnoses Not on filedocumented in this encounter Care Teams Kitchen Porter Relationship Specialty Start Date End Date None, Provider PCP - General 05/19/10 05/25/11 documented as of this encounter
--- OUTSIDE RECORDS SUMMARY | 2022-06-30 10:09 | XMS_ITS | Encounter Summary ---
:1985 Author Organization [facility] Address [address] [place] [address] Care Team Providers Name Role Phone None, Provider Primary Care Provider Unavailable Reason for Visit Reason Comments Advice Only Encounter Details Date Type Department Care Team Description 12/15/2010 Office Visit [facility] [place] Unknown, Supervisi on of normal Women's Services - Provider, first [facility] [phone] [address] [facility] (Work) [place] [address] [phone] Social History Tobacco Use Types Packs/Day Years Used Date Smoking Tobacco: Never Smokeless Tobacco: Never Alcohol Use Standard Drinks/Week Comments No 0 (1 standard drink = 0.6 oz pure alcoho l) Sex Assigned at Date Recorded Not on file documented as of this encounter Progress Notes Queta Rodriguez - 12/15/2010 2016 EDT Childbirth education topics covered procedures, 2nd stage intervention, relaxation documented in this encounter Plan of Treatment Not on filedocumented as of this encounter Visit Diagnoses Diagnosis Supervision of normal first documented in this encounter Care Teams Porcelain Finish Sprayer Relationship Specialty Start Date End Date None, Provider PCP - General 05/19/10 05/25/11 documented as of this encounter
--- OUTSIDE RECORDS SUMMARY | 2022-06-30 10:09 | XMS_ITS | Encounter Summary ---
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 140/92 mmHg 82 - - 01/09/11 2143 149/88 mmHg 80 18 36.9 ??C (98.4 ??F) Post- check: WNL IV / SL: IV to saline lock Almanza/Void: Patient up and voiding Cathed on L&D @ 0130 DTV [phone] Pain Medications: Given this shift - see MAR Feeding: breast Feeding assistance: Occasional support Special Social Circumstances: Discharge Education:Education incomplete Certificate: Not completed Comments: Stable pp pt. Breast feeding is going okay. Mom has big breast and the nipples are erect. She has good position, but could get baby on deeper. Encouraged mom to ring when baby is ready to eatto help with latch. Data: Action: Response: KORI GARCIA RN 01/10/2011 5:06 Plan of Care - Mandy Dunaway - 01/09/2011 2331 EDT Problem: PAIN Goal: Patient's pain/discomfort is manageable/tolerable Intervention: Offer non-pharmacological pain management interventions D: Pt flexible when it comes to managing labor pain. Pt going to play it by ear A: Encouraged pt to try forward leaning positions, pt used tub for hydrotherapy. R: Pt not getting desired relief as contractions worsen. Requesting epidural. Scanned Note-Null - Head Neck Surgeon, Scan - 01/09/2011 0000 EDT Scanned Note-Null - Head Neck Surgeon, Scan - 01/09/2011 0000 EDT Scanned Note-Null - Head Neck Surgeon, Scan - 01/09/2011 0000 EDT Scanned Note-Null - Head Neck Surgeon, Scan - 01/09/2011 0000 EDT documented in this encounter Plan of Treatment Not on filedocumented as of this encounter Procedures Procedure Name Priority Date/Time Associated Comments Diagnosis FIBRINOGEN STAT 01/09/2011 22:50 Results for this EDT procedure are i n the results section. COMPLETE BLOOD COUNT STAT 01/09/2011 22:50 Res ults for this EDT procedure are i n the results section. BLOOD BANK HOLD STAT 01/09/2011 22:50 Results for this EDT procedure are i n the results section. URIC ACID STAT 01/09/2011 22:50 Results for this EDT procedure are i n the results section. BUN STAT 01/09/2011 22:50 Results for this EDT procedure are i n the results section. ALT STAT 01/09/2011 22:50 Results for this EDT procedure are i n the results section. AST STAT 01/09/2011 22:50 Results for this EDT procedure are i n the results section. LDH STAT 01/09/2011 22:50 Results for this EDT procedure are i n the results section. CREATININE STAT 01/09/2011 22:50 Results for this EDT procedure are i n the results section. documented in this encounter Results BLOOD BANK SPECIMEN HOLD (01/09/2011 22:50 EDT) P athologist Signature Hold BB Spec will [facility] exp at LAB 23:59, 3 days from collect date Comment: SAMPLE EXPIRES ON 01/12/2011@23 :59 Specimen Anatomical Collection Method Collection Time Receive d Time (Source) Location / / Volume Laterality Blood specimen 01/09/2011 22:50 1 (specimen) EDT 22:50 EDT Debbie Padilla APRN CNM BLOOD BANK TESTS Performing Organization Address City/State/ZIP Code Phon e Number [facility] [address] [place] [address] SERVICES [facility] [address] [place] [address] LDH (01/09/2011 22:50 EDT) athologist Signature LDH 410 313 - 618 [facility] U/L LAB Specimen Anatomical Collection Method Collection Time Receive d Time (Source) Location / / Volume Laterality Blood specimen 01/09/2011 22:50 1 (specimen) EDT 23:01 EDT Debbie Jiménez Valerie IRELAND CNM CHEMISTRY & BLOOD GAS ORDERA BLES Performing Organization Address City/[facility]/ZIP Code Phon e Number [facility] [address] [place] [address] SERVICES [facility] [address] [place] [address] (ABNORMAL) FIBRINOGEN (01/09/2011 22:50 EDT) athologist Signature Fibrinogen 620 (H) 171 - 384 [facility] mg/dl LAB Specimen Anatomical Collection Method Collection Time Receive d Time (Source) Location / / Volume Laterality Blood specimen 01/09/2011 22:50 1 (specimen) EDT 23:01 EDT Debbie Jiménez Valerie IRELAND CNM HEMATOLOGY & PF4 ORDERABLES Performing Organization Address City/[facility]/ZIP Code Phon e Number [facility] [address] [place] [address] SERVICES [facility] [address] [place] [address] ALT (01/09/2011 22:50 EDT) athologist Signature ALT 13 9 - 52 U/L [facility] Specimen Anatomical Collection Method Collection Time Receive d Time (Source) Location / / Volume Laterality Blood specimen 01/09/2011 22:50 1 (specimen) EDT 23:01 EDT Debbie Jiménez Valerie IRELAND CNM CHEMISTRY & BLOOD GAS ORDERA BLES Performing Organization Address City/State/ZIP Code Phon e Number [facility] [address] [place] [address] SERVICES [facility] [address] [place] [address] AST (01/09/2011 22:50 EDT) P athologist Signature AST 22 15 - 46 U/L [facility] Specimen Anatomical Collection Method Collection Time Receive d Time (Source) Location / / Volume Laterality Blood specimen 01/09/2011 22:50 1 (specimen) EDT 23:01 EDT Debbie Padilla SHU CN CHEMISTRY & BLOOD GAS ORDERA BLES Performing Organization Address City/State/ZIP Code Phon e Number [facility] [address] [place] [address] SERVICES [facility] [address] [place] [address] URIC ACID (01/09/2011 22:50 EDT) athologist Signature Uric Acid 4.4 2.2 - 7.7 [facility] mg/dl LAB Specimen Anatomical Collection Method Collection Time Receive d Time (Source) Location / / Volume Laterality Blood specimen 01/09/2011 22:50 1 (specimen) EDT 23:01 EDT Debbie Padilla SHU [facility] CHEMISTRY & BLOOD GAS ORDERA BLES Performing Organization Address City/State/ZIP Code Phon e Number [facility] [address] [place] [address] SERVICES [facility] [address] [place] [address] CREATININE (01/09/2011 22:50 EDT) athologist Signature Creatinine 0.70 0.7 - 1.5 [facility] mg/dl LAB GFR, Calculated >60 ml/min/1.7 [facility] N 3m2 LAB Specimen Anatomical Collection Method Collection Time Receive d Time (Source) Location / / Volume Laterality Blood specimen 01/09/2011 22:50 1 (specimen) EDT 23:01 EDT Debbie Padilla SHU [facility] CHEMISTRY & BLOOD GAS ORDERA BLES Performing Organization Address City/State/ZIP Code Phon e Number [facility] [address] [place] [address] SERVICES [facility] [address] [place] [address] (ABNORMAL) BUN (01/09/2011 22:50 EDT) P athologist Signature BUN 6 (L) 10 - 26 [facility] mg/dl LAB Specimen Anatomical Collection Method Collection Time Receive d Time (Source) Location / / Volume Laterality Blood specimen 01/09/2011 22:50 1 (specimen) EDT 23:01 EDT Debbie Padilla APRN CN CHEMISTRY & BLOOD GAS ORDERA BLES Performing Organization Address City/[facility]/ZIP Code Phon e Number [facility] [address] [place] [address] SERVICES [facility] [address] [place] [address] (ABNORMAL) HEMAGRAM (01/09/2011 22:50 EDT) P athologist Signature WBC 14.47 (H) 4.0 - 12.4 [facility] K/cmm LAB RBC 4.72 3.86 - [facility] 5.04 M/cmm LAB Hemoglobin 12.9 11.6 - [facility] 15.2 gm/dl LAB HCT 38.2 34.9 - [facility] 44.4 % LAB MCV 81 81 - 98 fl [facility] MCH 27.3 26.7 - [facility] 33.3 pg LAB MCHC 33.8 32.1 - [facility] 35.9 gm/dl LAB PLT 261 141 - 320 [facility] K/cmm LAB RDW-CV 14.7 (H) 11.7 - [facility] 14.6 % LAB Specimen Anatomical Collection Method Collection Time Receive d Time (Source) Location / / Volume Laterality Blood specimen 01/09/2011 22:50 1 (specimen) EDT 23:01 EDT Debbie Padilla APRN [facility] HEMATOLOGY & PF4 ORDERABLES Performing Organization Address City/[facility]/ZIP Code Phon e Number [facility] [address] [place] [address] SERVICES [facility] [address] [place] [address] documented in this encounter Visit Diagnoses Not on filedocumented in this encounter Administered Medications Inactive Administered Medications - up to 3 most recent administrations Medication Order MAR Action Action Date Dose Rate Site acetaminophen (TYLENOL) tablet 650 mg Given 01/10/2011 1:30 EDT 650 mg 650 mg, oral, PRN, Starting on Wed01/09/11 at 2245, Until 01/10/11 at 0226, Pain, , Routine acetaminophen (TYLENOL) tablet 650 mg Given 01/11/2011 7:15 EDT 650 mg 650 mg, oral, EVERY 4 HOURS PRN, Starting on 01/10/11 at 0239, Until 01/11/11 at 1603, Pain, Routine Given 01/10/2011 20:17 EDT 650 mg Given 01/10/2011 11:03 EDT 650 mg bupivacaine-fentanyl in NS 0.0625 %-2 Rate Documented 01/10/2011 1: 00 EDT mL/hr mcg/mL 250 mL epidural epidural, CONTINUOUS, Starting on 01/10/11 at 0000, Until 01/10/11 at 0225, PCEA Dose: 8 mL LOCKOUT Interval: 10 minutes ONE HOUR Dose Limit: 36 mL BASAL Rate: 10 mL/hr, Routine, Recovery (only) docusate sodium (COLACE) capsule 100 mg Given 01/10/2011 20:18 EDT 100 mg 100 mg, oral, 2 TIMES DAILY PRN, Starting on 01/10/11 at 0240, Until 01/11/11 at 1603, Constipation, Routine Given 01/10/2011 11:03 EDT 100 mg ibuprofen (MOTRIN) tablet 400 mg Given 01/10/2011 1:30 EDT 400 mg 400 mg, oral, PRN, Starting on Wed01/09/11 at 2245, Until 01/10/11 at 0226, Pain, , Routine ibuprofen (MOTRIN) tablet 400 mg Given 01/11/2011 7:15 EDT 400 mg 400 mg, oral, EVERY 4 HOURS PRN, Starting on 01/10/11 at 0240, Until 01/11/11 at 1603, Pain, Routine Given 01/10/2011 20:18 EDT 400 mg Given 01/10/2011 11:03 EDT 400 mg lactated ringers (LR) infusion New Bag 01/09/2011 23:46 EDT 200 mL/hr 200 mL/hr 150-200 mL/hr, intravenous, CONTINUOUS, Starting on Wed01/09/11 at 2315, Until 01/10/11 at 0226, Routine New Bag 01/09/2011 22:50 EDT 200 mL/hr 200 mL/hr lansinoh HPA lanolin Given 01/10/2011 11:05 EDT topical (top), PRN, Starting on 01/10/11 at 0240, Until 01/11/11 at 1603, Other oxytocin in lactated ringers 30 New Bag 01/10/2011 1:18 EDT 200 mL /hr 200 mL/hr units/500 ml 200 mL/hr, intravenous, CONTINUOUS, Starting on 01/10/11 at 0215, Until 01/10/11 at 0217, Routine oxytocin in lactated ringers 30 Rate Change 01/10/2011 2:18 EDT 13 5 mL/hr 135 mL/hr units/500 ml 135 mL/hr, intravenous, CONTINUOUS, Starting on 01/10/11 at 0218, Until 01/10/11 at 0317, Routine documented in this encounter Historical Medications This list may reflect changes made after this encounter. Medication Sig Dispensed Refills Start Date End Date lansinoh HPA lanolin Apply topically as 0 011 10/21/2011 needed for Other. ibuprofen (MOTRIN) 400 mg Take 1 Tab by mouth 0 0 01/11/2011 04/25/2013 tablet every 4 hours as needed for Pain. docusate sodium (COLACE) Take 1 Cap by mouth 0 02/17/2011 100 mg capsule 2 times daily as needed for Constipation. acetaminophen (TYLENOL) Take 1 Tab by mouth 0 07/201104/25/2013 650 mg tablet every 4 hours as needed for Pain. added in this encounter Active and Recently Administered Medications Times are shown in EDT. Continuous Medication Order 01/09/2011 01/10/2011 01/11/2011 bupivacaine-fentanyl in NS 0.0625 %-2 mcg/mL 250 mL epidural (CANCELED) 0100 (Rate Documented - Provider: Mandy Dunaway) Epidural, CONTINUOUS, Starting Sat at 0000, Until 01/10/11 at 0225, PCEA Dose: 8 mL LOCKOUT Interval: 10 minutes ONE HOUR Dose Limit: 36 mL BASAL Rate: 10 mL/hr lactated ringers (LR) infusion (CANCELED) 2250 (New Ba g - Provider: Mandy Dunaway)2346 (New Bag - Provider: Mandy Dunaway) at 150-200 mL/hr, Intravenous, CONTINUOU S, Starting 01/09/11 at 2315, Until 01/10/11 at 0226 oxytocin in lactated ringers 30 units/500 ml () 0118 (New Bag - Provider: Mandy Dunaway) 200 mL/hr, Intravenous, CONTINUOUS, Star ting 01/10/11 at 0215, Until 01/10/11 at 0217 oxytocin in lactated ringers 30 units/500 ml () 0218 (Rate Change - Provider: Mandy Dunaway)0234 (IV Stopped - Provider: Mandy Dunaway) 135 mL/hr, Intravenous, CONTINUOUS, Star ting 01/10/11 at 0218, Until 01/10/11 at 0317 PRN Medication Order 01/09/2011 01/10/2011 01/11/2011 acetaminophen (TYLENOL) tablet 650 mg (CANCELED) 0130 (Given - Provider: Mandy Dunaway) 650 mg, Oral, PRN, Starting 01/09/11 at 2245, Until 01/10/11 at 0226, Pain, acetaminophen (TYLENOL) tablet 650 mg 06 20 (Given - Provider: Kori Alva RN)1103 (Given - Provider: Kori Alva RN)2016 (Given - Provider: Tuyet Callaway) 0715 (Given - Provider: Kori Alva RN) 650 mg, Oral, EVERY 4 HOURS PRN, Startin g 01/10/11 at 0239, Until 01/11/11 at 1603, Pain docusate sodium (COLACE) capsule 100 mg 1103 (Given - Provider: Kori Alva RN)2017 (Given - Provider: Tuyet Callaway) 100 mg, Oral, 2 TIMES DAILY PRN, Startin g 01/10/11 at 0240, Until 01/11/11 at 1603, Constipation ibuprofen (MOTRIN) tablet 400 mg (CANCELED) 0130 (Given - Provider: Mandy Dunaway) 400 mg, Oral, PRN, Starting 01/09/11 at 2245, Until 01/10/11 at 0226, Pain, ibuprofen (MOTRIN) tablet 400 mg 0620 (G iven - Provider: Kori Alva RN)1103 (Given - Provider: Kori Alva RN)2017 (Given - Provider: Tuyet Callaway) 0715 (Given - Provider: Kori Alva RN) 400 mg, Oral, EVERY 4 HOURS PRN, Startin g 01/10/11 at 0240, Until 01/11/11 at 1603, Pain lansinoh HPA lanolin 1105 (Given - Provider: Nuha Alva RN) Topical, PRN, Starting 01/10/11 at 0240, Until 01/11/11 at 1603, Other documented in this encounter Orders Medications Ordered That Might Not Have Count Last Ord ered Date First Ordered Date Been Administered calcium carbonate (TUMS) 200 mg calcium 1 01/11/20 11 (500 mg) per chewable tablet Chew 1-2 Tab oxycodone (ROXICODONE) immediate release 1 011 tablet 5 mg carboprost (HEMABATE) intramuscular 1 01/09/2011 injection 250 mcg methylergonovine (METHERGINE) injection 1 01/10/20 11 200 mcg misoprostol (CYTOTEC) tablet 200 mcg 1 01/09/2011 misoprostol (CYTOTEC) tablet 800 mcg 1 01/09/2011 oxytocin in lactated ringers 30 units/500 2 2010 ml Admission Count Last Ordered Date First Ordered Date NOTIFY PPS OF DISCHARGE COMPLETE 01/11/2011 ADMIT TO INPATIENT 1 01/10/2011 PPS NOTIFICATION OF PATIENT ARRIVAL ON 1 UNIT PPS NOTIFICATION OF SENDING PATIENT OFF 01/11/20 11 THE UNIT TEACHING SERVICE 1 01/10/2011 Discharge Count Last Ordered Date First Ordered Date DISCHARGE PATIENT 1 01/11/2011 documented in this encounter Care Teams Repair Technician Relationship Specialty Start Date End Date None, Provider PCP - General 05/19/10 05/25/11 documented as of this encounter
--- OUTSIDE RECORDS SUMMARY | 2022-06-30 10:09 | XMS_ITS | Encounter Summary ---
:1985 Author Organization [facility] Address [address] [place] [address] Care Team Providers Name Role Phone None, Provider Primary Care Provider Unavailable Reason for Visit Reason Comments Numbness patient reports noting some right sided lip numbness after having a spinal manipulation at chiropractor s. It became worse today and patient returned to chiropractor who referred harsha rowell to ED to rule out Watson's Palsy Encounter Details Date Type Department Care Team Description 03/06/2011 Emergency [facility] Christopher Vu MD Watson's palsy; Emergency Department - Emergency, MD Renee Lyme disease Main [address] [place] [address] Social History Tobacco Use Types Packs/Day Years Used Date Smoking Tobacco: Never Smokeless Tobacco: Never Alcohol Use Standard Drinks/Week Comments No 0 (1 standard drink = 0.6 oz pure alcoho l) Sex Assigned at Date Recorded Not on file documented as of this encounter Last Filed Vital Signs Vital Sign Reading Time Taken Comments Blood Pressure 134/99 03/06/2011 1553 EDT Pulse 91 03/06/2011 1553 EDT Temperature 35.7 ??C (96.3 ??F) 03/06/2011 1553 EDT Respiratory Rate 16 03/06/2011 1553 EDT Oxygen Saturation 100% 03/06/2011 1553 EDT Inhaled Oxygen Concentration - - Weight 86.2 kg (190 lb) 03/06/2011 1553 EDT Height 165.1 cm (5' 5) 03/06/2011 1553 EDT Body Mass Index 31.62 03/06/2011 1553 EDT documented in this encounter Functional Status Cognitive Status Response Date of Assessment Because of a physical, mental, or emotional condition, do Ye s 01/10/2011 you have serious difficulty concentrating, remembering, or making decisions? (5 years old or older) documented as of this encounter Discharge Instructions AttachmentsThe following attachments cannot be sent through Care Everywhere. WATSON'S PALSY: AFTER YOUR VISIT (BELARUSIAN)LYME DISEASE: AFTER YOUR VISIT (BELARUSIAN) documented in this encounter Medications at Time [...] tablet daily. documented as of this encounter Ordered Prescriptions Prescription Sig Dispensed Refills Start Date End Date doxycycline (VIBRAMYCIN) Take 1 Cap by mouth 28 Cap 0 03/20/2011 100 mg capsule 2 times daily for 14 days. documented in this encounter Discharge Disposition Disposition Code Departure Means Destination Home or Self Care Walk-out Home documented in this encounter ED Notes Gregory Mireles RN - 03/06/2011 1710 EDT Blood drawn via butterfly needle per protocol, tiger tube(s) sent to lab per order. Christopher Vu MD - 03/06/2011 1642 EDT DOS: 03/06/2011 Chief Complaint Patient presents with ??? Numbness patient reports noting some right sided lip numbness after having a spinal manipulation at chiropractors. It became worse today and patient returned to chiropractor who referred patient to ED to rule out Watson's Palsy The patient is a 25 y.o. female who presents today with Numbness The history is provided by the patient. Patient noted onset of R facial weakness 3 days ago. This was post chiropractic manipulation, so shewent back to see the chiropractor who referred her here to r/o Watson's palsy. On further history, patient states she was treated for erythema migrans in December of this year. Denies joint pain/swelling, stiff neck, headache or other neuro symptoms. No palpitations. Review of Systems Constitutional: Negative for fever and chills. HENT: Negative for ear pain and ear discharge. Eyes: Negative for pain and visual disturbance. Respiratory: Negative for shortness of breath. Cardiovascular: Negative for chest pain. Musculoskeletal: Negative for joint swelling. Neurological: Positive for facial asymmetry and numbness. Negative for seizures, speech difficulty, weakness and headaches. Psychiatric/Behavioral: Negative for confusion. Past Medical History Diagnosis Date ??? PCOS (polycystic ovarian syndrome) ??? Hypertension due to drug family history of hypertension and had high blood pressure while on control pill ??? EDDY 01/03/2011. ??? Calculus of kidney 02/17/2011 History reviewed. No pertinent past surgical history. Allergies Allergen Reactions ??? Penicillins Rash History Substance Use Topics ??? Smoking status: Never Smoker ??? Smokeless tobacco: Never Used ??? Alcohol Use: No Family History Problem Relation Age of Onset ??? Hypertension Mother leg stints and carotid artery cleaned out ??? Hypertension Father heart stints ??? Hypertension Paternal Grandmother ??? Cancer Paternal Grandmother uterine cancer ??? Cancer Maternal Grandmother colon cancer ??? Heart Disease Mother ??? Heart Disease Father ??? Heart Disease Paternal Grandfather Vital Signs Temp: 35.7 ??C (96.3 ??F) Temp src: Tympanic Pulse: 91 Resp: 16 SpO2: 100 % BP: 134/99 mmHg BP Device: BP Machine O2 Device: None (Room air) Physical Exam Nursing note and vitals reviewed. Constitutional: She is oriented to person, place, and time. She appears well- developed and well-nourished. No distress. HENT: Right Ear: External ear normal. Left Ear: External ear normal. Mouth/Throat: Oropharynx is clear and moist. Eyes: Conjunctivae and extraocular motions are normal. Pupils are equal, round, and reactive to light. Neck: Normal range of motion. Neck supple. Cardiovascular: Normal rate, regular rhythm and normal heart sounds. No murmur heard. Pulmonary/Chest: Effort normal and breath sounds normal. Abdominal: Soft. Bowel sounds are normal. No tenderness. Musculoskeletal: Normal range of motion. She exhibits no edema and no tenderness. Neurological: She is alert and oriented to person, place, and time. She has normal strength. A cranial nerve deficit (7th peripheral nerve deficit on R) is present. No sensory deficit. Skin: Skin is warm and dry. No rash noted. Radiology orders: None Procedures ED Course: A medical screening exam was performed. 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 Discussed with ID who recommend doxycyline for 14 days or amox for 3 weeks if patient wants to continue breast feeding. Patient to return if she develops any further symptoms. Given eye protection instructions. Patient is breast feeding but is allergic to PCN. She will pump and dump for 14 days. Disposition: Discharged The patient's pain was managed to an adequate level weighing risk vs. benefit of further medications. Upon departure from the Emergency Department, the patient's pain was 0 on a zero to ten scale. Condition at departure from the Emergency Department: Good Discharge Prescriptions New Prescriptions No Discharge Prescriptions for this patient MDM Number of Diagnoses or Management Options Watson's palsy: new, needed workup Lyme disease: new, needed workup Diagnosis management comments: 4 1. Watson's palsy (351.0) 2. Lyme disease (088.81) PCP: NO PCP 03/06/2011 16:53 Gregory Mireles RN - 03/06/2011 1610 EDT Pt calm and breast feeding . Alexandra Malagon RN - 03/06/2011 9623 EDT Patient able to ambulate without difficulty. Patient is one month post- Alexandra Malagon RN - 03/06/2011 1552 EDT Patient alert, oriented X 3. Hand grasps strong and equal. Speech slurred. Facial droop noted on right side and patient states she is unable to fully close right eye. Skin warm, dry, pink documented in this encounter Miscellaneous Notes Scanned Note-Null - Senior C Software Engineer, Scan - 03/06/2011 0000 EDT documented in this encounter Plan of Treatment Not on filedocumented as of this encounter Procedures Procedure Name Priority Date/Time Associated Comments Diagnosis LYME AB Routine 03/06/2011 17:05 Results for this EDT procedure are i n the results section. ZZLYME IMMUNOBLOT Routine 03/06/2011 17:05 Result s for this CONFIRMATION EDT procedure are i n the results section. documented in this encounter Results LYME ANTIBODY WESTERN BLOT (03/06/2011 17:05 EDT) Component Value Ref Test Analysis Performed At [facility] Range Method Time Signature IgG Positive KING Reference range: Negative DEX N LAB IgG Band(s) p66,p45,p41,p23,p18 [facility] Unit: kDa [facility] IgM Western Blot Positive [facility] Reference range: Negative DEX N LAB IgM Band(s) p41,p39,p23 [facility] Unit: kDa [facility] Interpretation [facility] REPORTABLE DISEASE ? [facility] LA B Consistent with active or pr evious infection ? with Borrelia burgdorferi. ? IgM blot criteria is of diag nostic utility only during ? the first 4 weeks of early L yme disease. ? CDC criteria require >=5 ban ds for IgG or >=2 bands for IgM ? for the Western blot to be c onsidered positive. Bands ? (e.g.,p41) may be detected i n patients without Lyme ? disease, and patterns not me eting the CDC criteria should ? be interpreted with caution. ? Western blot should be order ed only on specimens that are ? positive or equivocal by a F DA-licensed Lyme disease ? antibody screening test (e.g ., EIA). ? Test performed by immunoblot . ? Performed by: [facility] [address] , [address], [place] [address], Lab Dir: ??Joshua Pink ? III, M.D. ? Specimen Anatomical Collection Method Collection Time Receive d Time (Source) Location / / Volume Laterality 03/06/2011 17:05 03/06/2011 EDT 17:12 EDT Christopher Vu MD IMMUNOLOGY AND SEROLOGY [facility] Performing Organization Address City/[facility]/ZIP Code Phon e Number [facility] [address] [place] [address] SERVICES [facility] [address] [place] [address] LYME AB (03/06/2011 17:05 EDT) Analysis Performed At [facility] Time Signature Lyme AB Interpretation: Positive Ref erence Range: Negative Lyme Western Blot ordered by reflex and sent [facility] to [place]. [facility] Specimen Anatomical Collection Method Collection Time Receive d Time (Source) Location / / Volume Laterality Blood specimen 03/06/2011 17:05 1 (specimen) EDT 17:12 EDT Christopher Vu MD IMMUNOLOGY AND SEROLOGY [facility] Performing Organization Address City/State/ZIP [facility] Phon e Number [facility] [address] [place] [address] SERVICES [facility] [address] [place] [address] documented in this encounter Visit Diagnoses Diagnosis Watson's palsy Lyme disease documented in this encounter Care Teams Panel Gluer Relationship Specialty Start Date End Date None, Provider PCP - General 05/19/10 05/25/11 documented as of this encounter
--- OUTSIDE RECORDS SUMMARY | 2022-06-30 10:09 | XMS_ITS | Encounter Summary ---
:1985 Author Organization [facility] Address [address] [place] [address] Care Team Providers Name Role Phone None, Provider Primary Care Provider Unavailable Reason for Visit Reason Comments Routine Visit Encounter Details Date Type Department Care Team Description 12/17/2010 Routine [facility] Erlinda Martinez, [place]: 37w4d Women's Services [address] [address] [address], [place] [address] (Wo rk) Social History Tobacco Use Types Packs/Day Years Used Date Smoking Tobacco: Never Smokeless Tobacco: Never Alcohol Use Standard Drinks/Week Comments No 0 (1 standard drink = 0.6 oz pure alcoho l) Sex Assigned at Date Recorded Not on file documented as of this encounter Last Filed Vital Signs Vital Sign Reading Time Taken Comments Blood Pressure 118/60 12/17/2010 0834 EDT Pulse - - Temperature - - Respiratory Rate - - Oxygen Saturation - - Inhaled Oxygen Concentration - - Weight 98.4 kg (217 lb) 12/17/2010 0834 EDT Height - - Body Mass Index 36.11 09/22/2010 1826 EST documented in this encounter Progress Notes Erlinda Martinez CNM - 12/17/2010 0852 EDT S: States birthing classes very helpful. Discussed PP visitors. FOB will be home x 1 wk then mom over x 1 week. O: BP 118/60 Wt 98.431 kg (217 lb) EFW ~ 6 1/2 lbs A: 25 yo @37+4 wks S=D P: RTO in 1 wk. Discussed when to call in labor. documented in this encounter Plan of Treatment Not on filedocumented as of this encounter Visit Diagnoses Diagnosis Supervision of normal first documented in this encounter Care Teams Cleaning Maid Relationship Specialty Start Date End Date None, Provider PCP - General 05/19/10 05/25/11 documented as of this encounter
--- OUTSIDE RECORDS SUMMARY | 2022-06-30 10:09 | XMS_ITS | Encounter Summary ---
:1985 Author Organization [facility] Address [address] [place] [address] Care Team Providers Name Role Phone None, Provider Primary Care Provider Unavailable Reason for Visit Reason Comments Nephrolithiasis Encounter Details Date Type Department Care Team Description 03/16/2011 Office Visit [facility] Unknown, Prov MD martita Nephrolithiasis Urology - [facility] Kennedy Ramirez MD [address] [facility], [address] [place] [address] (Primary Dx) [facility], Ultrasound [address] [place], [place] [id number] Social History Tobacco Use Types Packs/Day Years [...] Discharge documented in this encounter Progress Notes Homero Rivera - 03/16/2011 0827 EDT Renal ultrasound 03/16/2011 documented in this encounter Miscellaneous Notes Scanned Note-Null - Vladimir, Gas Meter Repairer - 03/23/2011 1202 EDT documented in this encounter Plan of Treatment Not on filedocumented as of this encounter Visit Diagnoses Diagnosis Nephrolithiasis - Primary Calculus of kidney documented in this encounter Care Teams Catalog Librarian Relationship Specialty Start Date End Date None, Provider PCP - General 05/19/10 05/25/11 documented as of this encounter
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
--- OUTSIDE RECORDS SUMMARY | 2022-06-30 10:09 | XMS_ITS | Encounter Summary ---
:1985 Author Organization [facility] Address [address] [place] [address] Care Team Providers Name Role Phone None, Provider Primary Care Provider Unavailable Reason for Visit Reason Comments Routine Visit Encounter Details Date Type Department Care Team Description 12/27/2010 Routine [facility] Fartun Blackmon AP RN [place]: 39w0d Women's Services - [address] [address] [address], [place] [address] (Wo rk) Social History Tobacco Use Types Packs/Day Years Used Date Smoking Tobacco: Never Smokeless Tobacco: Never Alcohol Use Standard Drinks/Week Comments No 0 (1 standard drink = 0.6 oz pure alcoho l) Sex Assigned at Date Recorded Not on file documented as of this encounter Last Filed Vital Signs Vital Sign Reading Time Taken Comments Blood Pressure 130/72 12/27/2010 1110 EDT Pulse - - Temperature - - Respiratory Rate - - Oxygen Saturation - - Inhaled Oxygen Concentration - - Weight 98 kg (216 lb) 12/27/2010 1110 EDT Height - - Body Mass Index 35.94 09/22/2010 1826 EST documented in this encounter Progress Notes Fartun Blackmon CNM - 12/27/2010 1129 EDT Subjective: Keala Navarro is a 25 y.o. female here for visit. Patient reports: discomforts of late . Will work until labor. Is able to get up every hour at work. had had some problem with depression and has gotten treatment and Kaela notes significant improvement. Contractions: None movement: present Objective: Filed Vitals: 12/27/10 1110 BP: 130/72 Weight: 97.977 kg (216 lb) -GBS Assessment: 1. IUP at 39w0d: size equals dates Plan: Discussed couple adjustment . Labor prep Follow-up in 1 weeks 90 % of 15 min visit spent on counseling and coordination of care. documented in this encounter Plan of Treatment Not on filedocumented as of this encounter Visit Diagnoses Diagnosis Supervision of normal first documented in this encounter Care Teams Multicultural Manager Relationship Specialty Start Date End Date None, Provider PCP - General 05/19/10 05/25/11 documented as of this encounter
--- OUTSIDE RECORDS SUMMARY | 2022-06-30 10:09 | XMS_ITS | Encounter Summary ---
:[address] [facility] Address [address] [place] [address] Care Team Providers Name Role Phone Adrienne Rivas DO Primary Care Provider Encounter Details Date Type Department Care Team Description 08/24/2012 Results Only [facility] Family Adrienne Rivas DO [facility] [address] [place] [phone] (Wo rk) Social History Tobacco Use Types [...] documented as of this encounter Progress Notes Adrienne Rivas DO - 09/03/2012 1028 EST Quick Note: Letter sent documented in this encounter Plan of Treatment Not on filedocumented as of this encounter Procedures Procedure Name Priority Date/Time Associated Diagnosis Comme nts PAP TEST- RESULT Routine 08/24/2012 0:00 EST Resu lts for this ONLY procedure are i n the results section. documented in this encounter Results PAP TEST- RESULT ONLY (08/24/2012 0:00 EST) Component Value Ref Test Analysis Performed At [facility] Range Method Time Signature Pathology CYTOPATHOLOGY REPORT CHRISTINE Report: [facility] Reports generated via electronic interface contain original data; however they are lacking the format of the original report. Caution should be taken when reading/interpreting unformatte d reports. Name: ? KAELA CHASE ? Accession #: ? [id number] : ? 1985 (Age: 26) ??F ?Collect Date: ? 08/24/2012 Location: ? COL ? Receive Date: ? 08/25/2012 Provider: ?ADRIENNE RIVAS DO Copy to: ? Specimen/Source: ? Pap Test, Cervix/Endocervix, ThinPrep Imaging System with manual evaluation Last Menstrual Period: ? 08/02/12 Menstrual/ Status: ? Post ? SPECIMEN ADEQUACY ? Satisfactory for Evaluation - transformation zone component present - scant squamous epithelial component secondary to excessive inflammation GENERAL CATEGORIZATION ? Negative for Intraepithelial Lesion or Malignancy ? Document reviewed and electronically signed by: ? SANDY Henson(ASCP) ? Report Date: ??09/01/2012 10:34 End of Report Specimen (Source) Anatomical Location Collection Method / Collectio n Time Received Time / Laterality Volume 08/24/2012 08/25/2012 Adrienne Rivas DO PATHOLOGY ORDERABLES Performing Organization Address City/State/ZIP Code Phon e Number [facility] [address] [place] [address] SERVICES [facility] [address] [place] [address] documented in this encounter Visit Diagnoses Not on filedocumented in this encounter Care Teams Administrative Volunteer Relationship Specialty Start Date End Date Adrienne Rivas DO PCP - General 05/26/11 09/26/[address] [place] [address] documented as of this encounter
--- OUTSIDE RECORDS SUMMARY | 2022-06-30 10:09 | XMS_ITS | Encounter Summary ---
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 that is open on one end. The closed end is placed inside the vagina. The condom then lines the estevez of the vagina and prevents sperm from getting into the vagina. The female condom also protects against STIs. A new condom must be used each time the woman has sex. After 1 year, 21 out of 100 women using female condoms will get . You can buy female condoms without a doctor's prescription. ?? Diaphragm, which is a rubber dome with a firm, flexible rim. It fits inside a woman's vagina and covers the opening of the uterus (called the cervix). A diaphragm is always used with spermicide. A woman puts in the diaphragm no more than 6 hours before having sex. After 1 year, 16 out of 100 women using a diaphragm will get . You need a doctor's exam and a prescription to get a diaphragm. With good care, a diaphragm lasts 1 to 2 years. ?? Cervical cap, which is a rubber device. It fits inside the vagina, right up against the cervix. The cervical cap is always used with a spermicide. You need a doctor's prescription to get a cervical cap. After 1 year, 16 out of 100 women using the cap who have not had a vaginal delivery will get . Out of 100 women who have had a vaginal delivery, 32 will get after 1 year. A cervical cap can last for up to 2 years. ?? Contraceptive sponge, which is a thick plastic foam disc. It fits inside the vagina and covers the cervix. It also releases a spermicide. A woman wets the sponge before inserting it into her vagina.She is then protected against for the next 24 hours, even if she has sex more than once. After 1 year, 16 out of 100 women using the sponge who have not had a vaginal delivery will get . Out of 100 women who have had a vaginal delivery, 32 will get after 1 year. You can buy the contraceptive sponge without a doctor???s prescription. ?? Spermicide, which is a substance that kills sperm. Spermicides come as jelly, foam, cream, suppository, and film. The most common spermicide is called nonoxynol-9. Most spermicides come with an applicator, which is filled and put in the vagina about 15 minutes before sex. More spermicide must be used each time the woman has sex. Spermicide used alone does not work well to prevent . After 1 year, 29 out of 100 women using spermicide alone will get . You can buy spermicide without a doctor's prescription. What are the advantages of barrier methods of control? MARGIN-BOTTOM: 0mm Condoms protect against . They also are the only method that may protect against STIs such as HIV/AIDS and herpes. Barrier methods are safe to use while breast-feeding. Barrier methods do not use hormones. So they are safe for women who smoke or who have health problems such as heart disease or blood clots. These methods do not affect a woman's menstrual cycle. The ability to get returns as soon as a woman stops using control. Barrier methods are less expensive than hormonal types of control. You do not need a doctor's prescription for condoms, the contraceptive sponge, or spermicides. What are the disadvantages of barrier methods of control? MARGIN-BOTTOM: 0mm These methods do not prevent as well as IUDs or hormonal forms of control. Barrier methods prevent only if you use them every time you have sex. You may have to interrupt sex to use some barrier methods of control. A woman needs a doctor's prescription to get a diaphragm or cervical cap. The cervical cap and contraceptive sponge do not work as well as the other barrier methods for womenwho have delivered a child through the vagina. The cervical cap and diaphragm cannot be used by people who are allergic to latex or by women who have had toxic shock syndrome. The cervical cap should not be used during a menstrual period. Where can you learn more? Go to www.GigsTime.net/fahc Enter J114 in the search box to learn more about Barrier Methods of Control: After Your Visit. ?? [id number] [facility]. Care instructions adapted under license by [facility], [facility]. This care instruction is for use with your licensed healthcare professional. If you have questions about a medical condition or this instruction, always ask your healthcare professional. [facility] disclaims any warranty or liability for your use of this information. Content Version: 8.9.62611; Last Revised: July 07, 2010[facility] Patient Instructions Learning About Control What is control? control is any method used to prevent . Another word for control is contraception. If you have sex without control, there is a chance that you could get . This is true even if you have not started having periods yet or you are getting close to menopause. The only sure way to prevent is to not have sex. But finding a good method of control that you are comfortable with can help you avoid an unplanned . Be sure to tell your doctor about any health problems you have or medicines you take. He or she can help you choose the control method that is right for you. What are the types of control? There are many different kinds of control. Each has pros and cons. Learning about all the methods will help you find one that is right for you. ?? Hormonal methods are very good at preventing . Combination control pills (the pill), skin patches, and vaginal rings release the hormones estrogen and progestin. Shots, mini-pills, and implants release progestin only. ?? Intrauterine devices (IUDs) are also very good at preventing . A doctor must place the IUD in your uterus. There are two main types of IUDs available, the copper IUD and the hormonal IUD. The hormonal IUD releases progestin. ?? Barrier methods generally do not prevent as well as IUDs or hormonal methods do. Barrier methods include condoms, diaphragms, cervical caps, cervical park, and sponges. You must use barrier methods every time you have sex. ?? Natural family planning can work if you and your partner are very careful. You will need to keep good records so you know when you are most likely to become (you are fertile). And during times you are fertile, you will need to not have sex or to use a barrier method. Natural family planning is also known as fertility awareness and the rhythm method. ?? Permanent control (sterilization) gives you lasting protection against . A man canhave a vasectomy, or a woman can have her tubes tied (tubal ligation) or blocked (tubal implant). But this is only a good choice if you are sure that you don't want any (or any more) children. ?? Emergency contraception, such as the morning-after pill (Plan B), is a backup method to prevent if you forget to use control or a condom breaks. You can use emergency contraception for up to 5 days after having had sex, but it works best if you take it right away. It is a good idea to keep emergency control on hand as backup protection. You can buy emergency contraception in most drugstores if you are 17 or older. How do you choose the best method? The best method of control is one that protects you every time you have sex. This usually depends on how well you use it. To find a method that will work best for you, think about: ?? How well it works. Think about how important it is to you to avoid . Then look at how well each method works. For example, if you plan to have a child soon anyway, you may not need a very reliable method. If you don't want children but feel it is wrong to end a , choose a type of control that works very well. ?? How much effort it takes. For example, control pills may not be a good choice if you often forget to take medicine. Or, if you are not sure you will stop and use a barrier method each time youhave sex, pick another method. ?? How much the method costs. For example, condoms are cheap or free in some clinics. Some insurancecompanies cover the cost of prescription control. But cost can sometimes be misleading. An IUDcosts a lot up front. But it works for years, making it low-cost over time. ?? Whether it protects you from infection. Latex condoms can help protect you from sexually transmitted diseases (STDs), such as herpes or HIV/AIDS. But they are not the best way to prevent . To avoid both STDs and , use condoms along with another type of control. ?? Whether you've had a problem with one kind of control. Finding the best method of control may involve trying something different. Also, you may need to change a method that once worked well for you. ?? Whether you want children. If you are positive you don't want children, a lasting method of birthcontrol might be best. ?? Your health issues. Some control methods may not be safe for you, depending on your health issues. For example, women who smoke, are breast- feeding, or have had breast cancer may not be able to use certain methods. How can you get control? MARGIN-BOTTOM: 0mm You don't need to see a doctor and don't need a prescription to buy: [id number]: [place]; MARGIN-BOTTOM: 0mm Condoms, sponges, and spermicides. You can usually buy these in drugstores, online, and in many grocery stores. You need to see a doctor to: [id number]: [place]; MARGIN-BOTTOM: 0mm Get a prescription for control pills and other methods that use hormones. Have an IUD or implant inserted. Be fitted for a diaphragm or cervical cap. Where can you learn more? Go to [email or web address] Enter R673 in the search box to learn more about Learning About Control. ?? [id number] [place]. Care instructions adapted under license by [facility], [facility]. This care instruction is for use with your licensed healthcare professional. If you have questions about a medical condition or this instruction, always ask your healthcare professional. [facility] disclaim[facility] any warranty or liability for your use of this information. Content Version: 8.9.84532; Last Revised: April 04, 2010[facility] Patient Instructions Intrauterine Device (IUD) for Control: After Your Visit Your Care Instructions The intrauterine device (IUD) is used to prevent . It's a small, plastic, T-shaped device. Your doctor places the IUD in your uterus. You are using either a hormonal IUD or a copper IUD. ?? The hormonal IUD prevents for 5 years. Once you have it, you don't have to do anything else to prevent . ?? The copper IUD prevents for 10 years. Once you have it, you don't have to do anything to prevent . A string tied to the end of the IUD hangs down through the opening of the uterus (called the cervix)into the vagina. You can check that the IUD is in place by feeling for the string. The IUD usually stays in the uterus until your doctor removes it. Follow-up care is a koroma part of your treatment and safety. Be sure to make and go to all appointments, and call your doctor if you are having problems. It's also a good idea to know your test results and keep a list of the medicines you take. How can you care for yourself at home? How do you use the IUD? ?? Your doctor inserts the IUD. This takes only a few minutes and can be done at your doctor's office. ?? Your doctor may have you feel for the IUD string right after insertion, to be sure you know what it feels like. ?? Check for the string after every period. ?? Insert a finger into your vagina and feel for the cervix, which is at the top of the vagina and feels harder than the rest of your vagina (some women say it feels like the tip of your nose). ?? You should be able to feel the thin, plastic string coming out of the opening of your cervix. If you cannot feel the string, it doesn't always mean that the IUD is out of place. Sometimes the stringis just difficult to feel or has been pulled up into the cervical canal (which will not harm you). ?? Your doctor may want to see you 4 to 6 weeks after the IUD insertion, to make sure it is in place. What if you think the IUD is not in place? Always read the label for specific instructions. Here are some basic guidelines: ?? Call your doctor and use backup control, such as a condom, or don't have intercourse until you know the IUD is working. ?? If you have had intercourse, you can use emergency contraception, such as the morning-after pill (Plan B). You can use emergency contraception for up to 5 days after having had intercourse, but it works best if you take it right away. What else do you need to know? ?? The IUD has side effects. ?? The hormonal IUD usually reduces menstrual flow and cramping over time. It can also cause spotting, mood swings, and breast tenderness. ?? The copper IUD can cause longer and heavier periods. ?? After an IUD is first put in, you may have some mild cramping and light spotting for 1 to 2 days. ?? The IUD doesn't protect against sexually transmitted infections (STIs), such as herpes or HIV/AIDS. If you're not sure whether your sex partner might have an STI, use a condom to protect against disease. When should you call for help? Call your doctor now or seek immediate medical care if: ?? You have severe pain in your belly or pelvis. ?? You have severe vaginal bleeding. You are passing clots of blood and soaking through your usual pads or tampons each hour for 2 or more hours. ?? You have vaginal discharge that smells bad. ?? You have a fever and chills. ?? You think you might be . Watch closely for changes in your health, and be sure to contact your doctor if: ?? You cannot find the string of your IUD, or the string is shorter or longer than normal. ?? You have any problems with your control method. ?? You think you may have been exposed to or have a sexually transmitted infection. Where can you learn more? Go to [email or web address].GigsTime.[email or web address] Enter H796 in the search box to learn more about Intrauterine Device (IUD) for Control: AfterYour Visit. ?? [id number] [employer]. Care instructions adapted under license by [facility], [facility]. This care instruction is for use with your licensed healthcare professional. If you have questions about a medical condition or this instruction, always ask your healthcare professional. [facility], [facility] disclaims any warranty or liability for your use of this information. Content Version: 8.9.88817; Last Revised: July 07, 2010 documented in this encounter Plan of Treatment Not on filedocumented as of this encounter Visit Diagnoses Diagnosis Contraception management - Primary Unspecified contraceptive management documented in this encounter Discontinued Medications Medication Sig Discontinue Reason Start Date End Date gentamicin (GARAMYCIN) Place 1 Drop into Therapy completed 09/01/19 12 10/21/2011 0.3 % ophthalmic both eyes every 4 solution hours. lansinoh HPA lanolin Apply topically as Therapy completed 10/21/2011 needed for Other. 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
--- OUTSIDE RECORDS SUMMARY | 2022-06-30 10:09 | XMS_ITS | Encounter Summary ---
:1985 Author Organization [facility] Address [address] [place] [address] Care Team Providers Name Role Phone Bozena Rivas DO Primary Care Provider Reason for Visit Reason Comments Annual Exam W/Pap Contraception Would like to discuss option s Encounter Details Date Type Department Care Team Description 08/24/2012 Office Visit [facility] Bozena Rivas Hea ltare maintenance (Primary Dx); Family Medicine - DO Cervical cancer screening; [place] [address] Obesity, Class I, BMI 30-34.9; [address] [place], [place] Need for Tdap vaccination; [place] [phone] Need for influenza vaccination; [phone] Contraceptive m anagement (Work) Social History Tobacco Use Types Packs/Day Years Used Date Smoking Tobacco: Never Smokeless Tobacco: Never Alcohol Use Standard Drinks/Week Comments No 0 (1 standard drink = 0.6 oz pure alcoho l) Sex Assigned at Date Recorded Not on file documented as of this encounter Last Filed Vital Signs Vital Sign Reading Time Taken Comments Blood Pressure 128/88 08/24/2012 1135 EST Pulse 88 08/24/2012 1135 EST Temperature 36.9 ??C (98.4 ??F) 08/24/2012 1135 EST Respiratory Rate - - Oxygen Saturation - - Inhaled Oxygen Concentration - - Weight 86.2 kg (190 lb) 08/24/2012 1135 EST Height 165.1 cm (5' 5) 08/24/2012 1135 EST Body Mass Index 31.62 08/24/2012 1135 EST documented in this encounter Functional Status Cognitive Status Response Date of Assessment Because of a physical, mental, or emotional condition, do Ye s 01/10/2011 you have serious difficulty concentrating, remembering, or making decisions? (5 years old or older) documented as of this encounter Ordered Prescriptions Prescription Sig Dispensed Refills Start Date End Date levonorgestrel-ethinyl Take 1 Tab by 28 Tab 1 08/24/2012 09/27/2012 estradiol (AVIANE, ALESSE, mouth daily. LESSINA) 0.1-20 mg-mcg per tabletIndications: Contraceptive management documented in this encounter Progress Notes Kelsi Mayorga - 08/24/2012 1428 EST Tdap and flu given Bozena Rivas DO - 08/24/2012 1201 EST Female Well Adult Preventative Care Visit Patient ID: Kaela Talavera is an 26 y.o. female. Subjective: HISTORY OF PRESENT ILLNESS: Kaela presents to clinic for annual physical exam. Fasting labs: No prior fasting labs Immunizations: Influenza and Tdap not up to date. Breast exam: No prior mammogram. No personal or family history of breast CA. No breast nodules, lumps, skin changes, nipple discharge noted on self exams. Pap exam: Pap normal with 05/2010. No prior abnormal paps. LMP 08/02/12. Menstrual cycles regular. Denies dyspareunia, abnormal vaginal discharge, pelvic pain, abnormal vaginal bleeding, genital rashes, lesions, or pruritis. Colonoscopy: No prior colonoscopy. Denies bowel changes, melena, hematochezia. No personal or familyhistory of colon CA. In addition to today's physical she would like to discuss: 1. Would like to discuss contraceptive options. Has had negative SE with depo, micronor - which was prescribed by bioinformaticist , other OCPs (developed one migraine, is unsure if there was any elevation in blood pressure). Could not afford nuvaring d/t high copay/insurance coverage. Father with h/o DVT which was 2/2 to injury and immobility - not hereditary. Nonsmoker. No personal h/o blood clots or coagulation disorders. 2. Has been trying to work on weight loss. Having difficulty finding time for exercise and preparinghealthy food options. Not interested in referral to CHT at this time. Reviewed Patient Questionnaire - please see for details and ROS. Problem list, past medical, past surgical, family and social history reviewed and updated. See screening assessment below regarding further health maintenance concerns/updates. Patient Active Problem List Diagnoses ??? PCOS [...] History reviewed. No pertinent past surgical history. History Substance Use Topics ??? Smoking status: Never Smoker ??? Smokeless tobacco: Never Used ??? Alcohol Use: No Family History Problem Relation Age of Onset ??? Hypertension Mother leg stints and carotid artery cleaned out ??? Heart Disease Mother carotid endarterectomy in her 50's ??? High Blood Pressure Mother ??? High Cholesterol Mother ??? Hypertension Father heart stints ??? Heart Disease Father multi CT's - first at around age 50 ??? Hypertension Paternal Grandmother ??? Cancer Paternal Grandmother uterine cancer ??? Cancer Maternal Grandmother colon cancer ??? Heart Disease Paternal Grandfather Allergies Allergen Reactions ??? Penicillins Rash ??? Bee Pollens Large swelling/redness Current Outpatient Prescriptions Medication Sig Dispense Refill ??? levonorgestrel-ethinyl estradiol (AVIANE, ALESSE, LESSINA) 0.1-20 mg-mcg per tablet Take 1 Tab by mouth daily. 28 Tab 1 ??? acetaminophen (TYLENOL) 650 mg tablet Take 1 Tab by mouth every 4 hours as needed for Pain. ??? ibuprofen (MOTRIN) 400 mg tablet Take 1 Tab by mouth every 4 hours as needed for Pain. ??? MULTIVITAMINS W-IRON (FLINTSTONES PLUS IRON ORAL) Take 2 Tabs by mouth daily. Review of Systems Constitutional: Negative for fever, chills and malaise/fatigue. HENT: Negative for hearing loss, congestion and sore throat. Eyes: Negative for blurred vision and pain. Respiratory: Negative for cough and shortness of breath. Cardiovascular: Negative for chest pain, palpitations and leg swelling. Gastrointestinal: Negative for heartburn, nausea, vomiting, abdominal pain, diarrhea, blood in stooland melena. Genitourinary: Negative for dysuria and hematuria. Musculoskeletal: Negative for myalgias and joint pain. Skin: Negative for rash. Neurological: Negative for dizziness, focal weakness, weakness and headaches. Psychiatric/Behavioral: Negative for depression. The patient is not nervous/anxious. Objective: BP 128/88 Pulse 88 Temp(Src) 36.9 ??C (98.4 ??F) (Oral) Ht 165.1 cm (65) Wt 86.183 kg (190 lb) BMI 31.62 kg/m2 LMP 08/02/2012 ? No Body mass index is 31.62 kg/(m^2). Physical Exam Nursing note and vitals reviewed. Constitutional: She is oriented to person, place, and time. She appears well- developed and well-nourished. No distress. Very pleasant HENT: Head: Normocephalic and atraumatic. Right Ear: External ear normal. Left Ear: External ear normal. Nose: Nose normal. Mouth/Throat: Oropharynx is clear and moist. No oropharyngeal exudate. Tympanic membranes visualized bilaterally without erythema, bulging, or effusion. Eyes: Conjunctivae and EOM are normal. Pupils are equal, round, and reactive to light. Right eye exhibits no discharge. Left eye exhibits no discharge. No scleral icterus. Neck: Neck supple. No thyromegaly present. Cardiovascular: Normal rate, regular rhythm and normal heart sounds. Exam reveals no gallop and no friction rub. No murmur heard. Pulmonary/Chest: Effort normal and breath sounds normal. No respiratory distress. She has no wheezes. She has no rales. Breasts palpated bilaterally without mass or nodules. No nipple discharge. No skin changes. No axillary lymphadenopathy bilaterally. Abdominal: Soft. Bowel sounds are normal. She exhibits no distension and no mass. There is no tenderness. There is no rebound and no guarding. Genitourinary: External genitals within normal limits, no rash or lesions. Vagina pink and rugated. No discharge. Cervix visualized without mass, lesions, or discharge - is slightly friable. Musculoskeletal: She exhibits no edema. Lymphadenopathy: She has no cervical adenopathy. Neurological: She is alert and oriented to person, place, and time. No cranial nerve deficit. Coordination normal. Skin: Skin is warm and dry. No rash noted. No erythema. No pallor. Psychiatric: She has a normal mood and affect. Her behavior is normal. Assessment: Breast cancer screen: Screening not indicated: no risk factors. Discussed limitations and risks of clinical breast exam, self breast exam (USPTF recommends against) Cervical cancer screen: Screening indicated (discussed could wait for another year, but she preferred to have this completed today): screening ordered. Colon cancer screen: Screening colonoscopy not indicated: no risk factors Skin cancer screen: We reviewed the characteristics of concerning skin lesions. Patient does not report any concerning lesions. Gonorrhea/Chlamydia Screen (<24 yr or high risk): Screening not indicated: no risk factors. Hearing: patient does not have concerns. Lipid screen: not indicated: no risk factors. Counseled. DM screen: not indicated: no risk factors. Counseled. HTN screen: BP is normal today. Counseled. Depression symptoms: none EtOH use: reports that she does not drink alcohol.. Counseled. Tobacco use: reports that she has never smoked. She has never used smokeless tobacco.. Counseled. Substance abuse: reports that she does not use illicit drugs.. Counseled. Weight: obese (BMI 30-39). Counseled. Exercise: occassionally. Counseled. Immunizations: Counseled about: Td (1 dose every 10 years), TdaP (1 adult booster) and influenza (annual for everybody) Immunization History Administered Date(s) Administered ? ? DTaP Vaccine <7YO IM 1985, 1985, 02/22/1985, 03/07/1986, 05/06/1989 ??? Hepatitis B 05/23/1996, 06/27/1996, 12/05/1996 ? ? Influenza Vaccine =>3yo Split Preservative Free IM 05/30/2010 ??? MMR Vaccine SQ 11/29/1985, 05/23/1996 ??? Meningococcal Conjugate Vaccine (Menactra) 4-Valent IM 03/20/2003 ? ? Td Vaccine Preservative Free =>7yo IM 11/16/1997 Plan: Kaela was seen today for annual exam and contraception. Diagnoses and associated orders for this visit: Healthcare maintenance. Cervical cancer screening Kaela is a very pleasant 26 yo female who presented today for annual physical exam. Pap/pelvic and clinical breast exam updated. Immunizations updated. She was counseled on healthy diet, increasing exercise to eventual target of cardiac activity 30 minutes most days of the week, and goals of weight loss. - PAP Test Obesity, class i, bmi 30-34.9 Counseled on healthy diet via increasing fresh fruits/vegetables and avoiding fats and concentrated sweets. Encouraged incremental increase in physical activity to eventual goal of 30 minutes cardio 5 days per week. Reviewed goals of weight loss. Offered referral to CHT and logistics administrator, which were politely declined. She will contact the clinic for referrals if she changes her mind. Need for tdap vaccination - Tdap vaccine greater than or equal to 7yo IM Need for influenza vaccination - Influenza vaccine greater than or equal to 3yo split preservative free IM Contraceptive management Discussed numerous contraception options, including OCP, IUD, implanon, patches. She opted for trialof OCP. Potential medication side effects discussed - advised that if migraine occurs to STOP medication immediately. Reviewed signs/symptoms and risks of DVT and PE. RX sent to pharmacy. Will reevaluate for side effects and for bp check in 1 month. - levonorgestrel-ethinyl estradiol (AVIANE, ALESSE, LESSINA) 0.1-20 mg-mcg per tablet; Take 1 Tab bymouth daily. Return in about 1 month (around 09/24/2012) for follow up on blood pressure/symptom check after new med start. Patient Education Topic: as above Method: Verbal Taught to: Patient Barriers: None Outcomes: verbalized understanding References: USPTF Level A & B Recommendations List USPTF Adult Recommendations USPTF Breast Cancer Screening USPTF Cervical Cancer Screening USPTF Colorectal Cancer Screening CDC Adult Immunizations 2010 AAFP Clinical Recommendations documented in this encounter Plan of Treatment Not on filedocumented as of this encounter Visit Diagnoses Diagnosis Healthcare maintenance - Primary Routine general medical examination at a health care facility Cervical cancer screening Screening for malignant neoplasm of the cervix Obesity, Class I, BMI 30-34.9 Obesity, unspecified Need for Tdap vaccination Need for prophylactic vaccination with c ombined khnlbtsicw-jfyyixy-xsjvesvuu (DTP) vaccine Need for influenza vaccination Need for prophylactic vaccination and in oculation against influenza Contraceptive management Unspecified contraceptive management documented in this encounter Discontinued Medications Medication Sig Discontinue Reason Start Date End Date ethinyl Insert one (1) ring 10/21/2011 08/24/19 13 estradiol-etonogestrel vaginally and leave (NUVARING) 0.12-[address] for three mg/24 hr vaginal ring (3) weeks, then remove for one (1) week. norethindrone (MICRONOR) Take 1 Tab by mouth 08/24/2012 0.35 mg tablet daily. documented as of this encounter Orders Immunization/Injection Count Last Ordered Date First O rdered Date INFLUENZA VACCINE =>3YO SPLIT PRESERVATIVE 1 08/24 FREE IM TDAP VACCINE =>7YO IM 1 08/24/2012 documented in this encounter Care Teams Works Manager Relationship Specialty Start Date End Date Bozena Rivas DO PCP - General 05/26/11 09/26/[address] [place] [id number] documented as of this encounter
--- OUTSIDE RECORDS SUMMARY | 2022-06-30 10:09 | XMS_ITS | Encounter Summary ---
:1985 Author Organization [facility] Address [address] [place] [address] Care Team Providers Name Role Phone None, Provider Primary Care Provider Unavailable Reason for Visit Reason Comments Advice Only childbirth education Encounter Details Date Type Department Care Team Description 11/24/2010 Office Visit [facility] Unknown, Supervisi on of normal Women's Services - Provider, first [facility] [phone] (Primary Dx) [address] [facility] (Work) [place] [address] [phone] Social History Tobacco Use Types Packs/Day Years Used Date Smoking Tobacco: Never Smokeless Tobacco: Never Alcohol Use Standard Drinks/Week Comments No 0 (1 standard drink = 0.6 oz pure alcoho l) Sex Assigned at Date Recorded Not on file documented as of this encounter Discharge Disposition Disposition Code Departure Means Destination Auto Discharge documented in this encounter Progress Notes Queta Rodriguez - 12/02/2010 1139 EDT Childbirth education topics covered Third trimester of , growth documented in this encounter Plan of Treatment Not on filedocumented as of this encounter Visit Diagnoses Diagnosis Supervision of normal first - Primary documented in this encounter Care Teams D[employer] I Farmworker Relationship Specialty Start Date End Date None, Provider PCP - General 05/19/10 05/25/11 documented as of this encounter
--- OUTSIDE RECORDS SUMMARY | 2022-06-30 10:09 | XMS_ITS | Encounter Summary ---
:1985 Author Organization [facility] Address [address] [place] [address] Care Team Providers Name Role Phone Bozena Rivas Primary Care Provider Encounter Details Date Type Department Care Team Description 04/25/2013 Orders Only [facility] Zita Guerrero RN Super vision of other normal (Primary Dx); Women's Services - Unspecifi ed complication of , antepartum [place] [address] [place] [id number] Social History Tobacco Use Types Packs/Day Years [...] on filedocumented as of this encounter Results BACTERIAL CULTURE, URINE (04/26/2013 12:30 EDT) [facility] Method Time Signature Specimen Urine CHRISTINE Description [facility] Result Less than CHRISTINE 10,000 [facility] CFU/ml Mixed gram positive growth Report Status 04/27/2013 CHRISTINE Final [facility] Specimen Anatomical Collection Method Collection Time Receive d Time (Source) Location / / Volume Laterality Urine URINE / Unknown 04/26/2013 12:30 04/26/20 13 (substance) EDT 14:30 EDT Alessia Sierra APRN, CNM MICROBIOLOGY - GENERAL ORDERABLES Performing Organization Address City/[facility] Phon e Number [facility] [address] [place] [address] SERVICES [facility] [address] [place] [address] HIV 1/2 ANTIBODY (04/26/2013 10:33 EDT) P athologist Signature HIV 1/2 Negative KING Antibody [facility] Comment: Reference Range: ??Negative Assayed utilizing 640 Lab[employer] chemiluminescent technology. Specimen Anatomical Collection Method Collection Time Receive d Time (Source) Location / / Volume Laterality Blood specimen 04/26/2013 10:33 3 (specimen) EDT 12:10 EDT Alessia Sierra APRN, CNM IMMUNOLOGY AND SEROLOGY ORDERABLES Performing Organization Address [facility] Phon e Number [facility] [address] [place] [address] SERVICES [facility] [address] [place] [address] CHLAMYDIA/GC AMPLIFIED (04/26/2013 10:12 EDT) Component Value Ref Test Analysis Performed At Patholo gist Range Method Time Signature Specimen Endocervix KING Description [facility] Chlamydia No Chlamydia KING Result trachomatis DNA [facility] detected by cement finisher helper mediated amplification. GC Result No Neisseria K[facility] gonorrhoeae DNA [facility] detected by cement finisher helper mediated amplification. Specimen Anatomical Collection Method Collection Time Receive d Time (Source) Location / / Volume Laterality Other (qualifier OTHER / Unknown 04/26/2013 10:12 04/03 value) EDT 11:39 EDT Alessia Sierra APRN, CNM MICROBIOLOGY - GENERAL ORDERABLES Performing Organization Address [facility] Phon e Number [facility] [address] [place] [address] SERVICES [facility] [address] [place] [address] documented in this encounter Visit Diagnoses Diagnosis Supervision of other normal - Primary Unspecified complication of , a ntepartum documented in this encounter Discontinued Medications Medication Sig Discontinue Reason Start Date End Date acetaminophen (TYLENOL) Take 1 Tab by 01/11/2011 650 mg tablet mouth every 4 hours as needed for Pain. ibuprofen (MOTRIN) 400 mg Take 1 Tab by 01/11/2011 0 04/25/2013 tablet mouth every 4 hours as needed for Pain. norgestimate-ethinyl Take 1 Tab by 09/27/20122012 estradiol (ORTHO mouth daily. TRI-CYCLEN, TRI-SPRINTEC) 0.18/0.215/0.25 mg-35 mcg (28) tabletIndications: Contraception management documented as of this encounter Care Teams Hammersmith Helper Relationship Specialty Start Date End Date Bozena Rivas DO PCP - General 05/26/11 09/26/[address] [place] [address] documented as of this encounter
--- OUTSIDE RECORDS SUMMARY | 2022-06-30 10:09 | XMS_ITS | Encounter Summary ---
:1985 Author Organization [facility] Address [address] [place] [address] Care Team Providers Name Role Phone Bozena Rivas DO Primary Care Provider Reason for Visit Reason Onset Date Comments 04/11/2013 Encounter Details Date Type Department Care Team Description 04/11/2013 Telephone [facility] Women's Arely Oro, RN Services - [facility] [address] [facility] [address] [place], [place] [id number] [place] [id number] Social History Tobacco Use Types Packs/Day Years [...] this encounter Miscellaneous Notes Telephone Encounter - Arely Prakash, SRINIVAS - 04/11/2013 1131 EDT Kaela Talavera is a 27 y.o. female Date of : 1985 Referring Provider : self [facility] Provider : CNM [place] Para Abort Ectopic Miscarriage 5+5 2 1 0 0 0 LMP Blood Type Weight Height 8.1.13 O pos 205 lb 5f 5i Medications Tylenol PNV Allergies Allergen Reactions ??? Penicillins Rash ??? Bee Pollens Large swelling/redness Risk Factors Abdominal Pain? no Vaginal Bleeding? no Previous Pelvic or Tubal Surgery? no Ruptured Appendix? no History of PID (Pelvic Inflammation)? no Used an IUD? no History of Infertility for over a Year? no Any Chronic Medical condition? Hypertension Back pain If so, please explain... Previous Outcomes (to add more rows type .ppo) Date 01/10/11 spontaneous vaginal delivery Beta hCG levels (to add more rows type .bhcg) Plan :IVAP 04/26/13 Discussed with Provider :jignesh Prakash RN documented in this encounter Plan of Treatment Not on filedocumented as of this encounter Visit Diagnoses Not on filedocumented in this encounter Care Teams General Supervisor Relationship Specialty Start Date End Date Bozena Rivas DO PCP - General 05/26/11 09/26/[address] [place] [address] documented as of this encounter
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
--- OUTSIDE RECORDS SUMMARY | 2022-06-30 10:09 | XMS_ITS | Encounter Summary ---
:1985 Author Organization [facility] Address [address] [place] [address] Care Team Providers Name Role Phone None, Provider Primary Care Provider Unavailable Reason for Visit Reason Comments Routine Visit Encounter Details Date Type Department Care Team Description 12/01/2010 Routine [facility] Debbie Padilla APRN [place]: [id number] Women's Services - [address] [address] [address], [place] [address] (Wo rk) Social History Tobacco Use Types Packs/Day Years Used Date Smoking Tobacco: Never Smokeless Tobacco: Never Alcohol Use Standard Drinks/Week Comments No 0 (1 standard drink = 0.6 oz pure alcoho l) Sex Assigned at Date Recorded Not on file documented as of this encounter Last Filed Vital Signs Vital Sign Reading Time Taken Comments Blood Pressure 122/74 12/01/2010 1438 EDT Pulse - - Temperature - - Respiratory Rate - - Oxygen Saturation - - Inhaled Oxygen Concentration - - Weight 99.8 kg (220 lb) 12/01/2010 1438 EDT Height - - Body Mass Index 36.61 09/22/2010 1826 EST documented in this encounter Progress Notes Debbie Padilla CNM - 12/01/2010 1544 EDT Subjective: Kaela Navarro is being seen today for her obstetrical visit. She is at 35 and 2/7 weeks gestation.Patient reports occasional contractions. Movement: normal. Objective: BP 122/74 Wt 99.791 kg (220 lb) FHT: 140 BPM Uterine Size: 36 Presentation: OA Assessment: 35and 2/7 weeks Plan: GBS done Watch BP Discuss pre-eclampsia symptoms Follow-up: 1 week documented in this encounter Plan of Treatment Not on filedocumented as of this encounter Procedures Procedure Name Priority Date/Time Associated Comments Diagnosis GROUP B SUSCEPTIBILITY Routine 12/01/2010 15:23 Supervision of Results for this FOR PCN ALLERGY EDT normal first procedure ar e in the results section. documented in this encounter Results GROUP B SUSCEPTIBILITY FOR PCN ALLERGY (12/01/2010 15:23 EDT) Component Value Ref Test Analysis Performed At [facility] gist Range Method Time Signature Specimen Vaginal and [place] Description Rectal [facility] Result NO GROUP B BETA [facility] STREPTOCOCCI [facility] ISOLATED Report Status Final [facility] 12/03/2010 [facility] Specimen Anatomical Collection Method Collection Time Receive d Time (Source) Location / / Volume Laterality Other (qualifier 12/01/2010 15:23 011 value) EDT 15:59 EDT Debbie Padilla APRN, CNM MICROBIOLOGY - GENERAL ORDER REDDY Performing Organization Address City/State/ZIP Code Phon e Number [facility] [address] [place] [address] SERVICES [facility] [address] [place] [address] documented in this encounter Visit Diagnoses Diagnosis Supervision of normal first - Primary documented in this encounter Care Teams Day Care Center Director Relationship Specialty Start Date End Date None, Provider PCP - General 05/19/10 05/25/11 documented as of this encounter
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
--- OUTSIDE RECORDS SUMMARY | 2022-06-30 10:09 | XMS_ITS | Encounter Summary ---
:1985 Author Organization [facility] Address [address] [place] [address] Care Team Providers Name Role Phone None, Provider Primary Care Provider Unavailable Reason for Visit Reason Comments Dental Pain complaining of right lower j aw dental pain starting early Wednesday am; has felt feverish with sweat ing during the noight; is a 3 month old; Encounter Details Date Type Department Care Team Description 02/03/2011 Hospital Encounter [facility] Elisa Michelle nsect bite; Urgent Care - Ilana Viera NP Cellulitis; [facility] [address] [place] [address] Tooth pain [address] [place] [phone] (Wo rk) Social History Tobacco Use Types Packs/Day Years Used Date Smoking Tobacco: Never Smokeless Tobacco: Never Alcohol Use Standard Drinks/Week Comments No 0 (1 standard drink = 0.6 oz pure alcoho l) Sex Assigned at Date Recorded Not on file documented as of this encounter Last Filed Vital Signs Vital Sign Reading Time Taken Comments Blood Pressure 138/87 02/03/2011 1105 EDT Pulse 97 02/03/2011 1105 EDT Temperature 37 ??C (98.6 ??F) 02/03/2011 1105 EDT Respiratory Rate 16 02/03/2011 1105 EDT Oxygen Saturation - - Inhaled Oxygen [...] as of this encounter Discharge Instructions Discharge InstructionsBre Michelle NP - 02/03/2011 13:39 EDT Pump your breast milk after taking vicodin (for the 8 hour period after using this medication). Monitor for any sedative effect on Clover () and stop taking medication if this occurs. Eat soft foot only and keep mouth hygiene up for next month (frequent rinsing, but not scrubbing of teeth as this may irritate tooth). If any swelling or redness increases in mouth or signs of fever, return to clinic. If possible, make an appointment with the dentist for dental care and management of pain. For insect bite of right hip with redness, please start antibiotic and monitor for any increasing redness. If this occurs, of if any fever symptoms of chills, pain, nausea, please return to clinic. Flusymptoms can be a sign of Lyme disease and if this occurs, please return to clinic as well. documented in this encounter Medications at Time of Discharge Medication Sig Dispensed Refills Start Date End Date acetaminophen (TYLENOL) Take 1 Tab by mouth 0 07/201104/25/2013 650 mg tablet every 4 hours as needed for Pain. azithromycin (ZITHROMAX) Take by mouth. Take 6 Tab 0 02/17/2011 250 mg tablet 2 tablets on day 1. Then take 1 tablet on days 2-5 calcium carbonate (TUMS) Take 2 Tabs by mouth 0 0 09/22/2010 02/17/2011 200 mg (500 mg) Chew as needed. docusate sodium (COLACE) Take 1 Cap by mouth 0 02/17/2011 100 mg capsule 2 times daily as needed for Constipation. hydrocodone-acetaminophen Take 1 Tab by mouth 12 Tab 0 0 02/03/2011 02/17/2011 (LORTAB;VICODIN) 5-500 mg every 8 hours as per tablet needed for Pain (for right lower tooth pain as needed). ibuprofen (MOTRIN) 400 mg Take 1 Tab by mouth 0 0 01/11/2011 04/25/2013 tablet every 4 hours as needed for Pain. lansinoh HPA lanolin Apply topically as 0 011 10/21/2011 needed for Other. MULTIVITAMINS W-IRON Take 2 Tabs by mouth 0 07/2904/26/2013 (FLINTSTONES PLUS IRON daily. ORAL) documented as of this encounter Ordered Prescriptions Prescription Sig Dispensed Refills Start Date End Date azithromycin (ZITHROMAX) Take by mouth. Take 6 Tab 0 02/17/2011 250 mg tablet 2 tablets on day 1. Then take 1 tablet on days 2-5 hydrocodone-acetaminophen Take 1 Tab by mouth 12 Tab 0 0 02/03/2011 02/17/2011 (LORTAB;VICODIN) 5-500 mg every 8 hours as per tablet needed for Pain (for right lower tooth pain as needed). azithromycin (ZITHROMAX) Take 1 Tab by mouth 6 Tab 0 02/03/2011 250 mg tablet daily. Take 2 tablets on day 1. Then take 1 tablet on days 2-5 documented in this encounter Discharge Disposition Disposition Code Departure Means Destination Home or Self Care Car Home documented in this encounter ED Notes Bre Michelle NP - 02/03/2011 1205 EDT Images from the original note were not included. DOS: 02/03/2011 Chief Complaint Patient presents with ??? Dental Pain complaining of right lower jaw dental pain starting early Wednesday am; has felt feverish with sweating during the noight; is a 3 month old; The patient is a 25 y.o. female who presents today with Dental Pain HPI Comments: 25 y.o. Woman 3 weeks (Clover, born [birth year]) who presents with two issues: tick bite 2 weeks ago, non-engorged, removed with tick removal tool. She has noticed increased redness around site, but no pain. Sweats occurred last night. Her second issue is right lower molar tooth pain since Wednesday, 3 days ago, that she feels is a wisdom tooth that is growing in on an angle. She has worse pain when biting down and she states the painkeeps her up at night. She noticed that the tooth was coming through the gum during her , but the pain just started a few days ago in which she has had a hard time sleeping. The right sided tooth pain has given her a assoicated right sided headache she feels is associated with the tooth problem. Dental Pain The history is provided by the patient. Review of Systems Constitutional: Positive for diaphoresis. Chills: last night she had sweats (hot night) and not sureif this was a fever. HENT: Positive for dental problem. Negative for ear pain, sore throat and neck pain. Eyes: Negative for visual disturbance. Respiratory: Negative for cough. Gastrointestinal: Negative for nausea. Musculoskeletal: Negative for myalgias and arthralgias. Skin: Positive for rash. Neurological: Positive for headaches (right side of head). No current facility-administered medications on file. Current outpatient prescriptions Medication Sig Dispense Refill ??? hydrocodone-acetaminophen (LORTAB;VICODIN) 5-500 mg per tablet Take 1 Tab by mouth every 8 hoursas needed for Pain (for right lower tooth pain as needed). 12 Tab 0 ??? azithromycin (ZITHROMAX) 250 mg tablet Take by mouth. Take 2 tablets on day 1. Then take 1 tablet on days 2-5 6 Tab 0 ??? DISCONTD: azithromycin (ZITHROMAX) 250 mg tablet Take 1 Tab by mouth daily. Take 2 tablets on day 1. Then take 1 tablet on days 2-5 6 Tab 0 ??? acetaminophen (TYLENOL) 650 mg tablet Take 1 Tab by mouth every 4 hours as needed for Pain. ??? docusate sodium (COLACE) 100 mg capsule Take 1 Cap by mouth 2 times daily as needed for Constipation. ??? ibuprofen (MOTRIN) 400 mg tablet Take 1 Tab by mouth every 4 hours as needed for Pain. ??? lansinoh HPA lanolin Apply topically as needed for Other. ??? calcium carbonate (TUMS) 200 mg (500 mg) Chew Take 2 Tabs by mouth as needed. ??? MULTIVITAMINS W-IRON (FLINTSTONES PLUS IRON ORAL) Take 2 Tabs by mouth daily. Allergies Allergen Reactions ??? Penicillins Rash Past Medical History Diagnosis Date ??? PCOS (polycystic ovarian syndrome) ??? Hypertension due to drug family history of hypertension and had high blood pressure while on control pill ??? EDDY 01/03/2011. History Substance Use Topics ??? Smoking status: [...] Disease Father ??? Heart Disease Paternal Grandfather BP 138/87 Pulse 97 Temp(Src) 98.6 ??F (37 ??C) (Temporal) Resp 16 ? Unknown Physical Exam Constitutional: She appears well-nourished. No distress. Very pleasant young mother with infant who she comforts and breast feeds in clinic. HENT: Right Ear: External ear normal. Left Ear: External ear normal. Mouth/Throat: Uvula is midline and oropharynx is clear and moist. No tonsillar abscesses. Eyes: Pupils are equal, round, and reactive to light. Neck: Neck supple. Cardiovascular: Normal rate, regular rhythm and normal heart sounds. Pulmonary/Chest: Effort normal and breath sounds normal. Lymphadenopathy: She has no cervical adenopathy. Neurological: She is alert. Skin: Skin is warm and dry. Psychiatric: She has a normal mood and affect. Consult orders: None PCP: MD BENSON PCP No results found for this visit on 02/03/11. Radiology orders: None Procedures Course: A medical screening exam was performed. VSS Discussion: After palpating tooth, she states that the pain had lingered and this is the type of pain that she has at night that makes it difficult to sleep. She does not want percocet for pain as thismakes her groggy for 3 days, and she has had vicodin for an ovarian cyst that was not terribly effective but that was worse pain. She would be willing to try vicodin for the present pain issue for painat night an otherwise use tylenol. Her fiance has a dentist and she will call them for an appointment if further dental pain prior to her scheduled oral/facial surgeon appointment scheduled by the [facility] for February 24, 2011. IF not able to make a dental appointment for routine pain management or any increasing signs of infection, she is instructed to return to [facility]. The red area on hip for an insect bite is similar to a cellulitis she had from a bee bite on her armwhen she was in highschool. She had antibiotic at that time which cleared the infection. The presentsite does not appear as a Lyme rash, although she did remove a tick and she has a household pet thatgets ticks. She has no flu symptoms and she is nursing, therefore, will treat as a routine mild cellulits with precautions to return if she has flu-like symptoms. She is allergic to Penicillin and she is , therefore, will treat with azithromycin and as well, have outlined red area with ink marker and advised to return if worsening redness/pain/fever. Disposition: Discharged The patient's pain was managed to an adequate level weighing risk vs. benefit of further medications. [facility], the patient's pain was 7 on a zero to ten scale. Condition at departure from the [facility]: Stable 1. Insect bite (919.4L) 2. Cellulitis (682.9N) 3. Tooth pain (525.9P) Dr. Ant Mcfarland was available for consultation during my care of this patient. [facility] 02/03/2011 13:58 documented in this encounter Miscellaneous Notes Scanned Note-Null - It Help Desk Technician, Scan - 02/03/2011 0000 EDT documented in this encounter Plan of Treatment Not on filedocumented as of this encounter Visit Diagnoses Diagnosis Insect bite Other, multiple, and unspecified sites, insect bite, nonvenomous, without mention of infection Cellulitis Cellulitis and abscess of unspecified si te Tooth pain Unspecified disorder of the teeth and hightower pporting structures documented in this encounter Discontinued Medications Medication Sig Discontinue Reason Start Date End Date azithromycin (ZITHROMAX) Take 1 Tab by mouth 1 02/03/2011 250 mg tablet daily. Take 2 tablets on day 1. Then take 1 tablet on days 2-5 documented as of this encounter Care Teams Pipe Setter Relationship Specialty Start Date End Date None, Provider PCP - General 05/19/10 05/25/11 documented as of this encounter
--- OUTSIDE RECORDS SUMMARY | 2022-06-30 10:09 | XMS_ITS | Encounter Summary ---
:1985 Author Organization [facility] Address [address] [place] [address] Care Team Providers Name Role Phone None, Provider Primary Care Provider Unavailable Encounter Details Date Type Department Care Team Description 05/30/2010 Results Only [facility] Kartik Juarez, Women's Services - [address] [address] [address], [place] [phone] (Wo rk) Social History Tobacco Use Types Packs/Day Years Used Date Smoking Tobacco: Never Alcohol Use Standard Drinks/Week Comments No 0 (1 standard drink = 0.6 oz pure alcoho l) Sex Assigned at Date Recorded Not on file documented as of this encounter Progress Notes Kartik Juarez CNM - 07/15/2010 1330 EST Quick Note: Pap smear shows + BV -- ask if pt is symptomatic at next visit and treat. documented in this encounter Plan of Treatment Not on filedocumented as of this encounter Procedures Procedure Name Priority Date/Time Associated Diagnosis Comme nts CYTOPATHOLOGY Routine 05/30/2010 0:00 EDT Results for this procedure are i n the results section . documented in this encounter Results CYTOPATHOLOGY (05/30/2010 0:00 EDT) Component Value Ref Test Analysis Performed At [facility] Method Time Signature Pathology CYTOPATHOLOGY REPORT ? [facility] Report: ? [facility] Reports generated via electr onic interface contain original data; ? however they are lacking the format of the original report. ? Caution should be taken when reading/interpreting unformatted reports. ? Name: ? KAELA VERDE ? Accession #: ? [id number] ? : ? 1985 (Age: 24) ??F ?Collect Date: ? 05/30/2010 ? Location: ? OBGYN ? Receive Date: ? 06/02/2010 ? Provider: ?[facility] ? Copy to: ? Specimen/Source: ? Pap Test, Cervix/Endocervix, ThinPrep Imaging System ? with manual evaluation ? Last Menstrual Period: ? unsure ? Menstrual/ Status: ? SPECIMEN ADEQUACY ? Satisfactory for Eval uation ? - transformation zone compon ent present ? - scant squamous epithelial component secondary to excessive inflammation ? GENERAL CATEGORIZATION ? Negative for Intraepi thelial Lesion or Malignancy ? INTERPRETATION ? Shift in christina presen t suggestive of bacterial vaginosis. ? Document reviewed and electr onically signed by: ? Manuel Stumler, CT( CP) ? Report Date: ??11/02/ 2010 11:24 ? End of Report ? Specimen (Source) Anatomical Location Collection Method / Collectio n Time Received Time / Laterality Volume 05/30/2010 06/02/2010 Kartik Juarez APRN CNM PATHOLOGY ORDERABLES Performing Organization Address City/State/ZIP Code Phon e Number [facility] [address] [place] [address] SERVICES [facility] [address] [place] [address] documented in this encounter Visit Diagnoses Not on filedocumented in this encounter Care Teams Inspector Materials And Processes Relationship Specialty Start Date End Date None, Provider PCP - General 05/19/10 05/25/11 documented as of this encounter
--- OUTSIDE RECORDS SUMMARY | 2022-06-30 10:09 | XMS_ITS | Encounter Summary ---
:1985 Author Organization [facility] Address [address] [place] [address] Care Team Providers Name Role Phone RivasBozena Maximiliano CASTELLANO Primary Care Provider Reason for Visit Reason Comments Eye Problem bilateral redness, prior itc stevie, mucus discharge x 1 day. Pt's daycare provider has [facility]. Encounter Details Date Type Department Care Team Description 09/01/2011 Hospital Encounter [facility] Jayy Quinteros MD Conjunctivitis Urgent Care - [address] [place] [address] [phone] Social History Tobacco Use Types Packs/Day Years Used Date Smoking Tobacco: Never Smokeless Tobacco: Never Alcohol Use Standard Drinks/Week Comments No 0 (1 standard drink = 0.6 oz pure alcoho l) Sex Assigned at Date Recorded Not on file documented as of this encounter Last Filed Vital Signs Vital Sign Reading Time Taken Comments Blood Pressure 128/66 09/01/2011 0856 EST Pulse 76 09/01/2011 0856 EST Temperature 36.8 ??C (98.2 ??F) 09/01/2011 0856 EST Respiratory Rate 14 09/01/2011 0856 EST Oxygen Saturation - - Inhaled Oxygen [...] attachments cannot be sent through Care Everywhere. MIGUEL: AFTER YOUR VISIT (SYRIAC)documented in this encounter Medications at Time of Discharge Medication Sig Dispensed Refills Start Date End Date acetaminophen (TYLENOL) Take 1 Tab by mouth 0 07/201104/25/2013 650 mg tablet every 4 hours as needed for Pain. gentamicin (GARAMYCIN) Place 1 Drop into 1 Bottle 0 201110/21/2011 0.3 % ophthalmic solution both eyes every 4 hours. ibuprofen (MOTRIN) 400 mg Take 1 Tab [...] Sig Dispensed Refills Start Date End Date gentamicin (GARAMYCIN) 0.3 Place 1 Drop into 1 Bottle 0 10/21/2011 % ophthalmic solution both eyes every 4 hours. documented in this encounter Discharge Disposition Disposition Code Departure Means Destination Home or Self Care documented in this encounter ED Notes Kailash Quinteros - 09/01/2011 0915 EST DOS: 09/01/2011 Chief Complaint Patient presents with ??? Eye Problem bilateral redness, prior itching, mucus discharge x 1 day. Pt's daycare provider has [facility]. The patient is a 26 y.o. female who presents today with Eye Problem The history is provided by the patient. Eye Problem This is a new problem. The current episode started yesterday. The problem occurs constantly. The problem has not changed since onset.There was no injury mechanism. The pain is at a severity of 0/10. The patient is experiencing no pain. There is no history of trauma to the eye. There is known exposure to pink eye. Associated symptoms include discharge and eye redness. Review of Systems Unable to perform ROS Eyes: Positive for discharge and redness. All other systems reviewed and are negative. No current facility-administered medications for this encounter. Current Outpatient Prescriptions Medication Sig Dispense Refill ??? norethindrone (MICRONOR) [...] Apply topically as needed for Other. ??? MULTIVITAMINS W-IRON (FLINTSTONES PLUS IRON ORAL) Take 2 Tabs by mouth daily. Allergies Allergen Reactions ??? Penicillins Rash Past Medical History Diagnosis Date ??? PCOS (polycystic ovarian syndrome) ??? Hypertension due to drug family history of hypertension and had high blood pressure while on control pill ??? EDDY 01/03/2011. ??? Calculus of kidney 02/17/2011 History Substance Use Topics ??? Smoking status: [...] Father ??? Heart Disease Paternal Grandfather BP 128/66 Pulse 76 Temp(Src) 98.2 ??F (36.8 ??C) (Temporal) Resp 14 Physical Exam Nursing note and vitals reviewed. Constitutional: She appears well-developed and well-nourished. HENT: Head: Normocephalic. Eyes: Pupils are equal, round, and reactive to light. Right eye exhibits discharge. Right conjunctiva is injected. Left conjunctiva is injected. Neck: Normal range of motion. Cardiovascular: Normal rate and regular rhythm. Pulmonary/Chest: Effort normal and breath sounds normal. Lymphadenopathy: She has no cervical adenopathy. Consult orders: None PCP: Bozena Rivas DO No results found for this visit on 09/01/11. Radiology orders: None Procedures Course: A medical screening exam was performed. Disposition: No disposition on file The patient's pain was managed to an adequate level weighing risk vs. benefit of further medications. Upon departure from the [facility], the patient's pain was 0 on a zero to ten scale. Condition at departure from the [facility]: Stable No diagnosis found. MDM 09/01/2011 9:15 documented in this encounter Miscellaneous Notes Scanned Note-Null - Brine Process Operator, Scan - 09/07/2011 1422 EST documented in this encounter Plan of Treatment Not on filedocumented as of this encounter Visit Diagnoses Diagnosis Conjunctivitis Conjunctivitis, unspecified documented in this encounter Care Teams Proofer Apprentice Relationship Specialty Start Date End Date Bozena Rivas DO PCP - General 05/26/11 09/26/[address] [place] [phone] documented as of this encounter
--- OUTSIDE RECORDS SUMMARY | 2022-06-30 10:09 | XMS_ITS | Encounter Summary ---
:1985 Author Organization [facility] Address [address] [place] [address] Care Team Providers Name Role Phone None, Provider Primary Care Provider Unavailable Reason for Visit Reason Comments New Patient Visit Kidney Stone Encounter Details Date Type Department Care Team Description 02/17/2011 Office Visit [facility] Kennedy Ramirez Calculus of kidney Urology - [facility] MD Coleen (Primary Dx) [address] [phone] [place], [address] [place] [address] (Wo rk) Social History Tobacco Use Types [...] documented as of this encounter Progress Notes Kennedy Ramirez MD - 02/17/2011 1011 EDT This office note has been dictated. [id number] documented in this encounter Consult Notes Kennedy Ramirez MD - 03/02/2011 2019 EDT DIVISION OF UROLOGY CONSULTATION - 02/17/2011 Anabel Ivy MD [facility] - [facility] [address] [place] [address] Ivy: I had the pleasure of seeing Ms Navarro in consultation today in the Division of Urology at [facility]. As you recall, she is a 25-year-old woman who was referred for evaluation of a recent episode of nephrolithiasis. She had her first stone episode approximately 5 days ago and presented to the emergency department with right-sided flank pain. She underwent evaluation with a CT scan, which showed a 5 mm stone in her right UVJ with moderate hydroureteronephrosis down to the level of the stone. She was given pain medication in the emergency department, and her pain has ceased completely. She is currently completely asymptomatic. She is recovering from her recent , which ended in a normal vaginal delivery. She states that during her , there was some concern about a possible urinary tract infection, for which she was treated, symptomatic with primarily urinary frequency. She denies problems with recurrent urinary tract infections, gross hematuria, prior episodes of kidney stones, or sexually transmitted diseases. Her past medical history is significant for polycystic ovarian syndrome, nephrolithiasis. Past surgical history is negative. She is ALLERGIC to PENICILLIN. Current Medications: None. Social History is negative for tobacco or IV drug use. She reports drinking one alcoholic beverage per week normally, although she is currently breast-feeding. Her family history is negative for stones, negative for malignancies. There is a family history of coronary artery disease. Review of systems to include GI, , cardiac, respiratory, neurologic, musculoskeletal, endocrine, hematologic, and psychiatric is negative except as stated above. On physical exam, she is a somewhat overweight but healthy-appearing 25-year-old woman who is alert and oriented x3 in no acute distress. Normocephalic, atraumatic, anicteric. Her neck is supple. She has normal respiratory effort. Her abdomen is soft, nontender, nondistended without palpable masses, hernias, or scars. She has no CVA tenderness, no evidence of scoliosis. Walks with a normal gait. Has no cyanosis, clubbing or edema of her extremities. My assessment at this time is a 25-year-old woman who had a right distal left ureteral calculus confirmed by a CT scan, which she likely has passed as she is currently completely asymptomatic. To ensure its passage, I have recommended that she undergo evaluation with a KUB and renal ultrasound, which will be performed in approximately 1 to 2 weeks. I did talk to her about the utility of proceeding with a metabolic workup with a 24-hour urine collection and serum studies thereafter. Certainly, can predispose to stone formation with high progesterone levels leading to hypercalciuria and hypocitraturia as well as some chronic dehydration, particularly in people who have significant nausea. S o, her metabolic state during certainly may have been more lithogenic than her baseline. That being said, young people are certainly at increased risk of recurrence life long for stone formation. As such, we will likely proceed with a metabolic workup in the near future. Again, thank you for referring this patient for evaluation in the Division of Urology at [facility] and allowing us to participate in her care. I look forward to working with you in thefuture and will keep you informed of her progress. Sincerely, Electronically Signed by Kennedy Ramirez MD 03/02/2011 20:19 Kennedy Ramirez MD - Kennedy Ramirez MD - CHAVA Job ID: SM Doc ID: [id number] Ext Doc ID: [id number] cc: MD Dayo Hernandez MD documented in this encounter Plan of Treatment Not on filedocumented as of this encounter Procedures Procedure Name Priority Date/Time Associated Diagnosis Comme nts ABDOMEN AP 1 VIEW Routine 03/15/2011 15:20 Calculus of kidney Results for this EDT procedure are i n the results section. documented in this encounter Results ABDOMEN AP 1 VIEW (03/15/2011 15:20 EDT) Anatomical Region Laterality Modality Other Specimen Anatomical Collection Method Collection Time Receive d Time (Source) Location / / Volume Laterality 03/15/2011 15:20 03/15/2011 EDT 17:03 EDT Narrative 03/15/2011 17:03 EDT ABDOMEN AP 1 VIEW ??Mar 15, 2011 03:20:00 PM Signs and Symptoms/Comments: ??592.0-GIO CULUS OF KIDNEY-I9 nephrolithiasis. Comparisons: CT renal colic 02/07/2011. Technique: KUB of the abdomen. Findings: There has been interval resolution of th e previously noted calculus within the right UVJ. There is a stable phlebolith within the left hemipelvis. The bowel gas pattern is unr emarkable. No additional calculi are noted overlying the kidneys. The bones are normal for age. Impression: Resolution of previously not ed ureteral calculus in the right UVJ. I have personally reviewed the images an d the above interpretation and agree with the findings. Procedure Note Gabriel Alexander MD - 03/15/2011Formatting o f this note might be different from the original. ABDOMEN AP 1 VIEW Mar 15, 2011 03:20:00 PM Signs and Symptoms/Comments: 592.0-CALCU TAMMI OF KIDNEY-I9 nephrolithiasis. Comparisons: CT renal colic 02/07/2011. Technique: KUB of the abdomen. Findings: There has been interval resolution of th e previously noted calculus within the right UVJ. There is a stable phlebolith within the left hemipelvis. The bowel gas pattern is unr emarkable. No additional calculi are noted overlying the kidneys. The bones are normal for age. Impression: Resolution of previously not ed ureteral calculus in the right UVJ. I have personally reviewed the images an d the above interpretation and agree with the findings. Kennedy Ramirez MD [facility] ORDER REDDY documented in this encounter Visit Diagnoses Diagnosis Calculus of kidney - Primary documented in this encounter Discontinued Medications Medication Sig Discontinue Reason Start Date End Date hydrocodone-acetaminophen Take 1 Tab by mouth 02/04/20 11 02/17/2011 (LORTAB;VICODIN) 5-500 mg every 8 hours as per tablet needed for Pain (for right lower tooth pain as needed). azithromycin (ZITHROMAX) Take by mouth. Take 02/17/2011 250 mg tablet 2 tablets on day 1. Then take 1 tablet on days 2-5 docusate sodium (COLACE) Take 1 Cap by mouth 02/17/2011 100 mg capsule 2 times daily as needed for Constipation. calcium carbonate (TUMS) Take 2 Tabs by 09/22/2010 0 02/17/2011 200 mg (500 mg) Chew mouth as needed. documented as of this encounter Care Teams Racket Stringer Relationship Specialty Start Date End Date None, Provider PCP - General 05/19/10 05/25/11 documented as of this encounter
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
--- OUTSIDE RECORDS SUMMARY | 2022-06-30 10:09 | XMS_ITS | Encounter Summary ---
:1985 Author Organization [facility] Address [address] [place] [address] Care Team Providers Name Role Phone None, Provider Primary Care Provider Unavailable Reason for Visit Reason Comments Routine Visit Encounter Details Date Type Department Care Team Description 07/29/2010 Routine [facility] Debbie Padilla APRN [place]: 17w3d Women's Services - [address] [address] [address], [place] [address] (Wo rk) Social History Tobacco Use Types Packs/Day Years Used Date Smoking Tobacco: Never Alcohol Use Standard Drinks/Week Comments No 0 (1 standard drink = 0.6 oz pure alcoho l) Sex Assigned at Date Recorded Not on file documented as of this encounter Last Filed Vital Signs Vital Sign Reading Time Taken Comments Blood Pressure 112/72 07/29/2010 1614 EST Pulse - - Temperature - - Respiratory Rate - - Oxygen Saturation - - Inhaled Oxygen Concentration - - Weight 91.4 kg (201 lb 9.6 oz) 07/29/2010 1614 EST Height - - Body Mass Index 33.55 05/30/2010 1000 EDT documented in this encounter Progress Notes Debbie Padilla [facility] - 07/29/2010 1635 EST S: Back is feeling better O: BP 112/72 Wt 91.445 kg (201 lb 9.6 oz) A: 24 yo G1 @ 17w3d P: Has VU ordered F/U 4 weeks documented in this encounter Plan of Treatment Not on filedocumented as of this encounter Visit Diagnoses Not on filedocumented in this encounter Discontinued Medications Medication Sig Discontinue Reason Start Date End Date PNV WITH Take 1 Tab by Patient Stopped Taking 05/30/201007/03 CA,NO.61/IRON/FA/DHA mouth daily. (WOMEN'S + DHA ORAL) documented as of this encounter Historical Medications This list may reflect changes made after this encounter. Medication Sig Dispensed Refills Start Date End Date MULTIVITAMINS W-IRON Take 2 Tabs by 0 07/29/2010 04/26/2013 (FLINTSTONES PLUS IRON mouth daily. ORAL) added in this encounter Care Teams Real Estate Representative Relationship Specialty Start Date End Date None, Provider PCP - General 05/19/10 05/25/11 documented as of this encounter
--- OUTSIDE RECORDS SUMMARY | 2022-06-30 10:09 | XMS_ITS | Encounter Summary ---
:1985 Author Organization [facility] Address [address] [place] [address] Care Team Providers Name Role Phone Bozena Rivas DO Primary Care Provider Encounter Details Date Type Department Care Team Description 05/23/2013 Orders Only [facility] Zita Guerrero RN Need for prophylactic Women's Services - vaccinati on and [place] inoculation against [address] influenza (Primary Dx) [place] [address] Social History Tobacco Use Types Packs/Day Years [...] as of this encounter Visit Diagnoses Diagnosis Need for prophylactic vaccination and in oculation against influenza - Primary documented in this encounter Orders Immunization/Injection Count Last Ordered Date First O rdered Date INFLUENZA VACCINE =>3YO SPLIT PRESERVATIVE 1 05/24 FREE IM documented in this encounter Care Teams Bleaching Machine Operator Relationship Specialty Start Date End Date Bozena Rivas DO PCP - General 05/26/11 09/26/[address] [place] [id number] documented as of this encounter
--- OUTSIDE RECORDS SUMMARY | 2022-06-30 10:09 | XMS_ITS | Encounter Summary ---
:1985 Author Organization [facility] Address [address] [place] [address] Care Team Providers Name Role Phone None, Provider Primary Care Provider Unavailable Reason for Visit Reason Comments Ultrasound Encounter Details Date Type Department Care Team Description 03/16/2011 Office Visit [facility] Kennedy Ramirez Calculus of kidney; Urology - [facility] MD Coleen Calculus of ureter [address] [phone] [facility] [address] [place] [address] (Wo rk) Social History Tobacco [...] Discharge documented in this encounter Progress Notes Kennedy Ramirez MD - 03/16/2011 0900 EDT HISTORY OF PRESENT ILLNESS: Ms Navarro is a 25-year-old woman who recently had an episode of nephrolithiasis very shortly . She, subsequently, thinks that she passed the stone as she was completely asymptomatic when I saw her approximately 2 weeks ago. I did recommend she undergo evaluation with both a KUB and renal ultrasound to ensure that she did not have an occult remaining distal ureteral stone. Her KUB shows no obvious stones and her renal ultrasound performed in the office today showed the following. Right kidney measured 11.9 cm without masses, stones or hydro. Left kidney measured 11.5 cm without masses, stones or hydro. IMPRESSION: Negative renal ultrasound without evidence of obstruction. She remains completely asymptomatic, although she was recently in the emergency department with whatwas felt to be possibly Lyme disease, but she has had no further urologic symptoms. I went on to talk with her about the need for us maximizing stone prevention from a medical standpoint. I did talk to her about the fact that there certainly are some physiologic changes which can predispose to stone formation during with high progesterone levels leading to hypercalciuria, hy pocitraturia, chronic dehydration, etc. She also states that she was taking high levels of supplemental calcium in the form of Tums to help with heartburn. I have recommended she undergo a metabolic workup with 24-hour urine collection and serum studies to help further guide stone prevention going into the future. I have recommended that she increase her fluid intake, moderate sodium and animal protein intake and supplement her diet with real lemon juice in hopes of preventing stones in the future and I will plan to see her back in 6 weeks' time, having undergone a metabolic workup in approximatelyone month's time. Please note that I spent approximately 15 minutes with the patient during which greater than 10 minutes was spent in counseling and coordination of care. documented in this encounter Plan of Treatment Not on filedocumented as of this encounter Visit Diagnoses Diagnosis Calculus of kidney Calculus of ureter documented in this encounter Care Teams Watch Repair Person Relationship Specialty Start Date End Date None, Provider PCP - General 05/19/10 05/25/11 documented as of this encounter
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
--- OUTSIDE RECORDS SUMMARY | 2022-06-30 10:09 | XMS_ITS | Encounter Summary ---
:1985 Author Organization [facility] Address [address] [place] [address] Care Team Providers Name Role Phone None, Provider Primary Care Provider Unavailable Reason for Visit Reason Comments Vaginal Bleeding Pt to ED with vaginal bleedi ng, right lower back pain and vomiting since this afternoon. One mo nth post , Encounter Details Date Type Department Care Team Description 02/06/2011 - Emergency [facility] Dayo Arce MD [address] [place] [address], [address] [place] [address] Renal colic 02/07/2011 Emergency Department - Emergency, MD Re[facility] [address] [place] [address] Social History Tobacco Use Types Packs/Day Years Used Date Smoking Tobacco: Never Smokeless Tobacco: Never Alcohol Use Standard Drinks/Week Comments No 0 (1 standard drink = 0.6 oz pure alcoho l) Sex Assigned at Date Recorded Not on file documented as of this encounter Last Filed Vital Signs Vital Sign Reading Time Taken Comments Blood Pressure 125/81 02/07/2011 0128 EDT Pulse 74 02/07/2011 012 EDT Temperature 35.7 ??C (96.3 ??F) 02/06/2011 193 EDT Respiratory Rate 18 02/07/2011 0128 EDT Oxygen Saturation 98% 02/07/2011 012 EDT Inhaled Oxygen Concentration - - Weight 88.5 kg (195 lb) 02/06/2011 1939 EDT Height - - Body Mass Index 32.45 01/09/2011 2143 EDT documented in this encounter Functional Status Cognitive Status Response Date of Assessment Because of a physical, mental, or emotional condition, do Ye s 01/10/2011 you have serious difficulty concentrating, remembering, or making decisions? (5 years old or older) documented as of this encounter Discharge Instructions Discharge InstructionsDayo Arce MD - 02/07/2011 1:46 EDT 1. Drink plenty of fluids. Initially restrict diet to clear liquids, then add solids as tolerated. 2. Zofran 4mg on the tongue as needed for nausea/emesis. 3. Ibuprofen 600mg every 6 hours as needed. 4. Hydromorphone 2 - 4mg every 4 hours as needed. Return for pain not responding to this medication.Do not drive while taking this medication. Return to the Emergency Department (ED) if your condition worsens, does not improve as expected, or for any other concerns. Specifically return if you have new or uncontrolled pain, worsening fever, difficulty breathing, vomiting, or are unable to drink fluids. AttachmentsThe following attachments cannot be sent through Care Everywhere. KIDNEY STONE: AFTER YOUR VISIT TO THE EMERGENCY ROOM (DUTCH)documented in this encounter Medications at Time of [...] (for right lower tooth pain as needed). HYDROmorphone (DILAUDID) Take 1-2 Tabs by 15 Tab 0 02/0702/20/2011 2 mg tablet mouth every 4 hours [...] Sig Dispensed Refills Start Date End Date HYDROmorphone (DILAUDID) 2 Take 1-2 Tabs by 15 Tab 0 04/201102/20/2011 mg tablet mouth every 4 hours as needed for Pain. documented in this encounter Discharge Disposition Disposition Code Departure Means Destination Comments Home or Self [facility] Pt ambulat ed out of dept in [place] with steady gai t. documented in this encounter ED Notes Karime Andrew RN - 02/07/2011 0048 EDT Pt transported to and returned from [place] by stretcher with tech. Karime Andrew RN - 02/06/2011 2317 EDT Urine specimen obtained, ua done, Dr. Arce notified of 4+ Ketones. Karime Andrew RN - 02/06/20117 EDT Pt reports pain is now 3/10, denies nausea at this time. Dayo Arce MD - 02/06/2011 2103 EDT DOS: 02/06/2011 Chief Complaint Patient presents with ??? Vaginal Bleeding Pt to ED with vaginal bleeding, right lower back pain and vomiting since this afternoon. One month post , The patient is a 25 y.o. female who presents today with Vaginal Bleeding HPI Comments: 02/06/2011 21:05 25 year old woman ~ 1 month post presents with new onset right sided lower back pain, vomiting, and vag spotting. Had mild bleeding immediately post from a tear which rapidly resolved. Denies fevers/chills, urinary sx, or change in bowel habits. No hx of similar sx previously. Vaginal Bleeding Primary symptoms include vaginal bleeding. Primary symptoms include no dysuria. There has been no fever. This is a new problem. The current episode started 3 to 5 hours ago. The problem occurs rarely. The problem has not changed since onset. She is not . Associated symptoms include abdominal pain, nausea and vomiting. Pertinent negatives include no frequency. She has tried nothing for the symptoms. Sexual activity: non-contributory. There is no concern regarding sexually transmitted diseases. 1 month post The history is provided by the patient, the spouse and medical records. Review of Systems Constitutional: Negative for fever and chills. HENT: Negative for neck stiffness. Eyes: Negative for visual disturbance. Respiratory: Negative for shortness of breath. Cardiovascular: Negative for chest pain. Gastrointestinal: Positive for nausea, vomiting and abdominal pain. Genitourinary: Positive for flank pain and vaginal bleeding. Negative for dysuria, frequency and hematuria. Musculoskeletal: Negative for back pain. Skin: Negative for rash. Neurological: Negative for headaches. Psychiatric/Behavioral: Negative for confusion. All other systems reviewed and are negative. Past Medical History Diagnosis Date ??? PCOS [...] ??C (96.3 ??F) Temp src: Tympanic Pulse: 74 Resp: 18 SpO2: 98 % BP: 125/81 mmHg BP Device: BP Machine Patient Position: Sitting BP Cuff Location: Right arm O2 Device: None (Room air) Physical Exam Nursing note and vitals reviewed. Constitutional: She is oriented to person, place, and time. She appears well- developed and well-nourished. HENT: Head: Normocephalic and atraumatic. Eyes: Conjunctivae and extraocular motions are normal. Pupils are equal, round, and reactive to light. Right eye exhibits no discharge. Left eye exhibits no discharge. Neck: Normal range of motion. Neck supple. No tracheal deviation present. Cardiovascular: Normal rate, regular rhythm and normal heart sounds. No murmur heard. Pulmonary/Chest: Effort normal and breath sounds normal. No respiratory distress. Abdominal: Soft. Bowel sounds are normal. She exhibits no distension. Tenderness (right flank/rlq) is present. Musculoskeletal: Normal range of motion. She exhibits no edema. Neurological: She is alert and oriented to person, place, and time. Skin: Skin is warm and dry. No rash noted. Psychiatric: She has a normal mood and affect. Labs Reviewed POCT URINALYSIS - Abnormal; Notable for the following: ??? Bilirubin 1+ (*) ? ? Ketones >=3+ (*) ??? Blood 3+ (*) ??? Protein Trace (*) All other components within normal limits POCT URINE DIPSTICK Radiology orders: CT RENAL COLIC: Obstructing right UVJ calculus measuring about 6 mm. Moderate hydroureteronephrosis,perinephric and periureteral fat stranding with diffuse swelling of the right kidney. I personally reviewed the above study(ies) contemporaneously and independently. Reviewed and discussed findings with furnace converter vice president industrial relations. Attending radiologist not present and immediately available for formal review. CT RENAL COLIC Final result not shown here.: CT RENAL COLIC (Results Pending) Procedures ED Course: A medical screening exam was performed. Presents with new onset right sided flank pain/abd pain, nausea, and vag spotting. Pt describes having milder similar sx during her and being treated for a presumptive cystitis. Sx and exam suggestive of nephrolithiasis. CT confirms diagnosis. Treated with ivf ns, iv hydromorphone, and iv ondansetron with improved sx. Pt re-evaluated immediately prior to discharge with improved symptoms, normal vital signs, and tolerating PO. Pain level prior discharge: 10/09. The patient feels this is appropriate for outpatient management with oral analgesia. Discussed clinical/diagnostic findings. Discharged with a clear plan for o utpatient follow up. Given usual and customary return instructions prior to discharge. Disposition: Discharged Discharge Prescriptions New Prescriptions HYDROMORPHONE (DILAUDID) 2 MG TABLET Take 1-2 Tabs by mouth every 4 hours as needed for Pain. MDM Number of Diagnoses or Management Options Renal colic: new, needed workup Amount and/or Complexity of Data Reviewed Clinical lab tests: ordered and reviewed Tests in the radiology section of CPT??: ordered and reviewed Discussion of test results with the performing providers: yes Decide to obtain previous medical records or to obtain history from someone other than the patient: yes Obtain history from someone other than the patient: yes Review and summarize past medical records: yes Independent visualization of images, tracings, or specimens: yes Risk of Complications, Morbidity, and/or Mortality Presenting problems: high Diagnostic procedures: high Management options: high General comments: 5 Patient Progress Patient progress: improved 1. Renal colic (788.0) PCP: MD BENSON PCP 02/11/2011 23:14 Karime Andrew RN - 02/06/20112036 EDT Pt reports feeling the urge to urinate frequently, but not being able to go. documented in this encounter Miscellaneous Notes Scanned Note-Null - Plate Former, Scan - 02/06/2011 0000 EDT documented in this encounter Plan of Treatment Not on filedocumented as of this encounter Procedures Procedure Name Priority Date/Time Associated Comments Diagnosis CT RENAL COLIC WO 02/07/2011 0:36 EDT Res ults for this CONTRAST procedure are i n the results section. POCT URINALYSIS Routine 02/06/2011 23:16 Results for this EDT procedure are i n the results section. documented in this encounter Results CT RENAL COLIC (02/07/2011 0:36 EDT) Anatomical Region Laterality Modality Other Specimen Anatomical Collection Method Collection Time Receive d Time (Source) Location / / Volume Laterality 02/07/2011 0:36 02/07/2011 EDT 11:10 EDT Narrative 02/07/2011 11:[address] RENAL COLIC ??Feb 07, 2011 12:36:00 AM Clinical History/Comments: flank pain Comparison: None. Technique: Using neither oral nor intravenous contr ast material, 3 mm sections were made from just above the kidneys th rough the urinary bladder. Findings: This is a limited study performed withou t the benefit of intravenous or oral contrast administration. There is a 6 mm calculus in the distal r ight ureter intramural segment at the level of the UV junction. Upstream from the obstructing calculus, there is moderate ureteral distention and moderate hydronephrosis. The right kidne y is swollen with perinephric and periureteral fat stranding and fluid also noted on the right side. No additional urinary tract calculi are visualized. No hydronephrosis or perinephric fat stranding is visualiz ed on the left side. Small portion of the lung bases at the l evel of the posterior costophrenic sulci show no significant a bnormality. Upper portions of the liver and spleen are not included in the imaging [id number]. The unenhanced images of the imaged port ions of the liver, spleen and pancreas show no abnormality. No adrenal nodule is detected. No abdominal aortic aneurysm is evident. In creased density in the dependent portion of the gallbladder cou ld represent retained gallbladder sludge or calculi. Ultrasoun d can be obtained for further evaluation. No evidence for bowel obstruction or juan carlos e peritoneal air. A normal caliber appendix containing intraluminal increased density material is noted. The urinary bladder is contrac adair. No adnexal mass is identified. Evaluation of osseous structures shows n o significant abnormality. Impression: 1. Obstructing right UVJ calculus measur ing about 6 mm. Moderate hydroureteronephrosis, perinephric and p eriureteral fat stranding with diffuse swelling of the right kidne y. 2. No additional urinary tract calculi v isualized. No hydronephrosis or perinephric fat stranding is evident on the left side. 3. Increased density in the dependent po rtion of the gallbladder could represent retained gallbladder slu dge or calculi. Ultrasound can be obtained for further evaluation. No pericholecystic inflammatory changes are visualized. 4. Increased density material within the appendiceal lumen could represent but tiny appendicoliths or oth er high density material. No appendiceal thickening or periappendicea l inflammatory changes are currently evident. Dr. Watson discussed findings with Dr. Kadi whitehead shortly after imaging study was performed. Procedure Note 02/07/2011 CT RENAL COLIC Feb 07, 2011 12:36:00 AM Clinical History/Comments: flank pain Comparison: None. Technique: Using neither oral nor intravenous contr ast material, 3 mm sections were made from just above the kidneys th rough the urinary bladder. Findings: This is a limited study performed withou t the benefit of intravenous or oral contrast administration. There is a 6 mm calculus in the distal r ight ureter intramural segment at the level of the UV junction. Upstream from the obstructing calculus, there is moderate ureteral distention and moderate hydronephrosis. The right kidne y is swollen with perinephric and periureteral fat stranding and fluid also noted on the right side. No additional urinary tract calculi are visualized. No hydronephrosis or perinephric fat stranding is visualiz ed on the left side. Small portion of the lung bases at the l evel of the posterior costophrenic sulci show no significant a bnormality. Upper portions of the liver and spleen are not included in the imaging [id number]. The unenhanced images of the imaged port ions of the liver, spleen and pancreas show no abnormality. No adrenal nodule is detected. No abdominal aortic aneurysm is evident. In creased density in the dependent portion of the gallbladder cou ld represent retained gallbladder sludge or calculi. Ultrasoun d can be obtained for further evaluation. No evidence for bowel obstruction or juan carlos e peritoneal air. A normal caliber appendix containing intraluminal increased density material is noted. The urinary bladder is contrac adair. No adnexal mass is identified. Evaluation of osseous structures shows n o significant abnormality. Impression: 1. Obstructing right UVJ calculus measur ing about 6 mm. Moderate hydroureteronephrosis, perinephric and p eriureteral fat stranding with diffuse swelling of the right kidne y. 2. No additional urinary tract calculi v isualized. No hydronephrosis or perinephric fat stranding is evident on the left side. 3. Increased density in the dependent po rtion of the gallbladder could represent retained gallbladder slu dge or calculi. Ultrasound can be obtained for further evaluation. No pericholecystic inflammatory changes are visualized. 4. Increased density material within the appendiceal lumen could represent but tiny appendicoliths or oth er high density material. No appendiceal thickening or periappendicea l inflammatory changes are currently evident. Dr. Watson discussed findings with Dr. Kadi whitehead shortly after imaging study was performed. Dayo Arce MD IMG CT ORDERABLES (ABNORMAL) POCT URINALYSIS (02/06/2011 23:16 EDT) [facility] Method Time Signature Color YELLOW [facility] Clarity, UA Clear [facility] Glucose Neg NEG [facility] Bilirubin 1+ (A) NEG [facility] Ketones >=3+ (A) NEG [facility] Specific [place] 1.025 1.001 - [facility] 1.035 [facility] Blood 3+ (A) NEG [facility] pH 6.0 4.6 - 8.0 [facility] Protein Trace (A) NEG [facility] Urobilinogen 0.2 0.2 - 1.0 [facility]dl [facility] Nitrite Neg NEG [facility] Leuk Esterase Neg NEG [facility] complex care nurse practitioner ID [id number] CHRISTINE Test Performed by Nursing Services [facility] Specimen Anatomical Collection Method Collection Time Receive d Time (Source) Location / / Volume Laterality 02/06/2011 23:16 02/06/2011 EDT 23:17 EDT Of Care User Point POINT OF CARE TEST ORDERABLE S Performing Organization Address City/State/ZIP Code Phon e Number [facility] [address] [place] [address] SERVICES [facility] [address] [place] [address] documented in this encounter Visit Diagnoses Diagnosis Renal colic documented in this encounter Administered Medications Inactive Administered Medications - up to 3 most recent administrations Medication Order MAR Action Action Date Dose Rate Site HYDROmorphone (PF) (DILAUDID) 1 Given 02/06/2011 21:56 EDT 0.5 m g mg/mL injection 0.5 mg 0.5 mg, intravenous, NOW X1, 1 dose, On Wed02/06/11 at 2200, STAT HYDROmorphone (PF) (DILAUDID) 1 mg/mL injection Given 02/07/2011 1:46 EDT 0.5 mg 0.5 mg 0.5 mg, intravenous, NOW X1, 1 dose, On 02/07/11 at 0215, STAT Hydromorphone 2 mg Tab STARTER PACK Given 02/07/2011 2:01 EDT 1 Package 1 Package, oral, NOW X1, 1 dose, On 02/07/11 at 0215, STAT ibuprofen (MOTRIN) tablet 600 mg Given 02/07/2011 2:01 EDT 600 mg 600 mg, oral, NOW X1, 1 dose, On 02/07/11 at 0215, STAT ondansetron (PF) (ZOFRAN) injection 4 mg Given 02/06/2011 21:56 EDT 4 mg 4 mg, intravenous, NOW X1, 1 dose, On Wed02/06/11 at 2200, STAT ondansetron (ZOFRAN-ODT) disintegrating tablet 8 Given 02/07 2:02 EDT 8 mg mg 8 mg, oral, NOW X1, 1 dose, On 02/07/11 at 0215, STAT sodium chloride (NS) 0.9 % 1,000 mL BOLU S Given 02/06/2011 22:11 EDT 1,000 mL 1,000 mL, intravenous, Once (NO Time Specified), 1 dose, Starting on Wed02/06/11 at 2200, Until Wed02/06/11 at 2211, STAT documented in this encounter Active and Recently Administered Medications Times are shown in EDT. Scheduled Medication Order 02/05/2011 02/06/2011 02/07/2011 HYDROmorphone (PF) (DILAUDID) 1 mg/mL injection 0.5 mg (COMP LETED) 2043 (Given - Provider: Karime Andrew RN) 0.5 mg, Intravenous, NOW X1, 1 dose, Wed02/06/11 at 2200 HYDROmorphone (PF) (DILAUDID) 1 mg/mL injection 0.5 mg (COMPLETE D) 014 (Given - Provider: Karime Andrew RN) 0.5 mg, Intravenous, NOW X1, 1 dose, 02/07/11 at 021 Hydromorphone 2 mg Tab STARTER PACK (COMPLETED) 200 (Given - Provider: Karime Andrew RN) 1 Package, Oral, NOW X1, 1 dose, 02/07/11 at 0215 ibuprofen (MOTRIN) tablet 600 mg (COMPLETED) 200 (Given - Provider: Karime Andrew RN) 600 mg, Oral, NOW X1, 1 dose, 02/07/11 at 0215 ondansetron (PF) (ZOFRAN) injection 4 mg (COMPLETED) 2155 (Given - Provider: Karime Andrew RN) 4 mg, Intravenous, NOW X1, 1 dose, 02/06/11 at 2200 ondansetron (ZOFRAN-ODT) disintegrating tablet 8 mg (COMPLETED) 201 (Given - Provider: Karime Andrew RN) 8 mg, Oral, NOW X1, 1 dose, 02/07/11 at 0215 sodium chloride (NS) 0.9 % 1,000 mL BOLUS (COMPLETED) 2210 (Given - Provider: Karime Andrew RN) 1,000 mL, Intravenous, ONCE, 1 dose, First dose on Wed02/06/11 at 2200 documented in this encounter Orders Lab Orders Without Results Count Last Ordered Date Fir st Ordered Date POCT URINE DIPSTICK 1 02/06/2011 documented in this encounter Care Teams Residential Door Unit Installer Relationship Specialty Start Date End Date None, Provider PCP - General 05/19/10 05/25/11 documented as of this encounter
--- OUTSIDE RECORDS SUMMARY | 2022-06-30 10:09 | XMS_ITS | Encounter Summary ---
:1985 Author Organization [facility] Address [address] [place] [address] Care Team Providers Name Role Phone None, Provider Primary Care Provider Unavailable Encounter Details Date Type Department Care Team Description 07/23/2010 Orders Only [facility] Zita Guerrero RN Obesi ty compl Women's Services - Main preg n//puerperp [place] (Primary Dx) [address] [place] [address] Social History Tobacco Use Types Packs/Day Years Used Date Smoking Tobacco: Never Alcohol Use Standard Drinks/Week Comments No 0 (1 standard drink = 0.6 oz pure alcoho l) Sex Assigned at Date Recorded Not on file documented as of this encounter Plan of Treatment Not on filedocumented as of this encounter Results GLUCOSE-1HR GESTATIONAL SCREEN (08/14/2010 16:09 EST) P athologist Signature Glucose Dose 50 g [facility] Glucose-1hr 74 50 - 135 [facility] Scn mg/dl LAB Comment: A one hour glucose greater than or equal to 135 mg/dl should be further evaluated with a formal three hour gluco se tolerance test. Specimen Anatomical Collection Method Collection Time Receive d Time (Source) Location / / Volume Laterality Blood specimen 08/14/2010 16:09 1 (specimen) EST 17:29 EST Debbie Padilla APRN CNM PACKAGES & DNA PROBE ORDERAB LES Performing Organization Address City/State/ZIP Code Phon e Number [facility] [address] [place] [address] SERVICES [facility] [address] [place] [address] documented in this encounter Visit Diagnoses Diagnosis Obesity complicating , childbir th, or the puerperium, unspecified as to episode of care or not applicable(649.10 ) - Primary Obesity complicating , childbir th, or the puerperium, unspecified as to episode of care or not applicable documented in this encounter Care Teams Lining Stamper Relationship Specialty Start Date End Date None, Provider PCP - General 05/19/10 05/25/11 documented as of this encounter
--- OUTSIDE RECORDS SUMMARY | 2022-06-30 10:09 | XMS_ITS | Encounter Summary ---
:1985 Author Organization [facility] Address [address] [place] [address] Care Team Providers Name Role Phone None, Provider Primary Care Provider Unavailable Reason for Visit Reason Comments Advice Only childbirth education Encounter Details Date Type Department Care Team Description 12/01/2010 Office Visit [facility] Unknown, Supervisi on of normal Women's Services - Provider, (Primary Dx) [facility] [phone] [address] [facility] (Work) [place] [address] [phone] Social History Tobacco Use Types Packs/Day Years Used Date Smoking Tobacco: Never Smokeless Tobacco: Never Alcohol Use Standard Drinks/Week Comments No 0 (1 standard drink = 0.6 oz pure alcoho l) Sex Assigned at Date Recorded Not on file documented as of this encounter Progress Notes Queta Rodriguez - 12/02/2010 0945 EDT Childbirth education topics covered 1st,2nd 3rd stages of labor, epidural anesthesia with Dr. Murcia . documented in this encounter Plan of Treatment Not on filedocumented as of this encounter Visit Diagnoses Diagnosis Supervision of normal - Primar y Supervision of other normal documented in this encounter Care Teams Pnp Relationship Specialty Start Date End Date None, Provider PCP - General 05/19/10 05/25/11 documented as of this encounter
--- OUTSIDE RECORDS SUMMARY | 2022-06-30 10:09 | XMS_ITS | Encounter Summary ---
:1985 Author Organization [facility] Address [address] [place] [address] Care Team Providers Name Role Phone None, Provider Primary Care Provider Unavailable Reason for Visit Reason Comments Routine Visit mild edema Encounter Details Date Type Department Care Team Description 09/22/2010 Routine [facility] Debbie Padilla APRN GA: 25w2d Women's Services - [address] [address] [address], [place] [address] (Wo rk) Social History Tobacco Use Types Packs/Day Years Used Date Smoking Tobacco: Never Smokeless Tobacco: Never Alcohol Use Standard Drinks/Week Comments No 0 (1 standard drink = 0.6 oz pure alcoho l) Sex Assigned at Date Recorded Not on file documented as of this encounter Last Filed Vital Signs Vital Sign Reading Time Taken Comments Blood Pressure 110/78 09/22/2010 0800 EST Pulse - - Temperature - - Respiratory Rate - - Oxygen Saturation - - Inhaled Oxygen Concentration - - Weight 94.3 kg (207 lb 12.8 oz) 09/22/2010 0800 EST Height - - Body Mass Index 34.58 05/30/2010 1000 EDT documented in this encounter Discharge Disposition Disposition Code Departure Means Destination Home or Self Care documented in this encounter Progress Notes Debbie Padilla CNM - 09/22/2010 0924 EST S: Doing well Had LBP prior to - does stretches O: BP 110/78 Wt 94.257 kg (207 lb 12.8 oz) S=D A: 25yo G1 @ 25w2d P: Do 1h GTT & CBC prior to next appt Declines PT referral - discus pain relief options F/U 4 w documented in this encounter Plan of Treatment Not on filedocumented as of this encounter Results (ABNORMAL) HEMAGRAM (10/03/2010 16:12 EST) athologist Signature WBC 13.62 (H) 4.0 - 12.4 [facility]/c[facility] RBC 4.06 3.86 - [facility] 5.04 M/cmm LAB Hemoglobin 11.4 (L) 11.6 - [facility] 15.2 gm/dl LAB HCT 33.8 (L) 34.9 - [facility] 44.4 % LAB MCV 83 81 - 98 fl [facility] MCH 28.2 26.7 - [facility] 33.3 pg LAB MCHC 33.8 32.1 - [facility] 35.9 gm/dl LAB PLT 259 141 - 320 [facility] K/cmm LAB RDW-CV 13.3 11.7 - [facility] 14.6 % LAB Specimen Anatomical Collection Method Collection Time Receive d Time (Source) Location / / Volume Laterality Blood specimen 10/03/2010 16:12 1 (specimen) EST 17:49 EST Debbie Padilla TOOLROOM KEEPER CNM HEMATOLOGY & PF4 ORDERABLES Performing Organization Address City/State/ZIP Code Phon e Number [facility] [address] [place] [address] SERVICES [facility] [address] [place] [address] GLUCOSE-1HR GESTATIONAL SCREEN (10/03/2010 16:12 EST) athologist Signature Glucose Dose 50 g [facility] Glucose-1hr 82 50 - 135 [facility] Gest Scn mg/dl LAB Comment: A one hour glucose greater than or equal to 135 mg/dl should be further evaluated with a formal three hour gluco se tolerance test. Specimen Anatomical Collection Method Collection Time Receive d Time (Source) Location / / Volume Laterality Blood specimen 10/03/2010 16:12 1 (specimen) EST 17:49 EST Debbie Padilla SHU CNM PACKAGES & DNA PROBE ORDERAB LES Performing Organization Address City/State/ZIP Code Phon e Number [facility] [address] [place] [address] SERVICES [facility] [address] [place] [address] documented in this encounter Visit Diagnoses Diagnosis Supervision of normal first - Primary documented in this encounter Historical Medications This list may reflect changes made after this encounter. Medication Sig Dispensed Refills Start Date End Date calcium carbonate (TUMS) Take 2 Tabs by mouth 0 0 09/22/2010 02/17/2011 200 mg (500 mg) Chew as needed. added in this encounter Care Teams Anesthesiology Tech Relationship Specialty Start Date End Date None, Provider PCP - General 05/19/10 05/25/11 documented as of this encounter
--- OUTSIDE RECORDS SUMMARY | 2022-06-30 10:10 | XMS_ITS | Encounter Summary ---
:1985 Author Organization [facility] Address [address] [place] [address] Care Team Providers Name Role Phone Unavailable Primary Care Provider Unavailable Encounter Details Date Type Department Care Team Description 03/31/2007 Results Only [facility] - Ike Owen PA conversion [address] [place] [address] Social History Tobacco Use Types Packs/Day Years Used Date Smoking Tobacco: Never Assessed Sex Assigned at Date Recorded Not on file documented as of this encounter Plan of Treatment Not on filedocumented as of this encounter Procedures Procedure Name Priority Date/Time Associated Diagnosis Comme nts CYTOPATHOLOGY Routine 03/31/2007 0:00 EDT Results for this procedure are i n the results section . documented in this encounter Results CYTOPATHOLOGY (03/31/2007 0:00 EDT) Component Value Ref Test Analysis Performed At [facility] Method Time [facility] Pathology CYTOPATHOLOGY REPORT [facility] Report: [facility] Reports generated via electronic interface contain original data; however they are lacking the format of the original report. Caution should be taken when reading/interpreting unformatte d reports. Name: ? KAELA VERDE ? Accession #: ? [id number] : ? 1985 (Age: 21) ??F ?Collect Date: ? 03/31/2007 Location: ? [facility] ? Receive Date: ? 04/01/2007 Provider: ?IKE WARNER Copy to: ? Specimen/Source: ?ThinPrep Pap Test, E ndocervix, processed on [employer] ThinPrep Imaging System, with manual evaluation Last Menstrual Period: ? 03/08/07 Hormonal/Contraceptive Status: ? Yes: Lisa Other: ? Additional clinical information: h/p ovarian cyst - right HPVA - HPV testing requested if ASC-US on the current ThinPr ep Pap test. ? SPECIMEN ADEQUACY ? Satisfactory for Evaluation - transformation zone component present GENERAL CATEGORIZATION ? Negative for Intraepithelial Lesion or Malignancy INTERPRETATION ? Fungal organisms pres ent morphologically consistent with Madison species. ? Document reviewed and electronically signed by: ? Edin Gamez, SANDY(ASCP) ? Report Date: ??04/06/2007 12:31 End of Report Specimen (Source) Anatomical Location Collection Method / Collectio n Time Received Time / Laterality Volume 03/31/2007 04/01/2007 Ike WARNER PATHOLOGY ORDERABLES Performing Organization Address City/State/ZIP Code Phon e Number [facility] [address] [place] [address] SERVICES [facility] [address] [place] [address] documented in this encounter Visit Diagnoses Not on filedocumented in this encounter
--- OUTSIDE RECORDS SUMMARY | 2022-06-30 10:10 | XMS_ITS | Encounter Summary ---
:1985 Author Organization [facility] Address [address] [place] [address] Care Team Providers Name Role Phone None, Provider Primary Care Provider Unavailable Encounter Details Date Type Department Care Team Description 05/22/2010 Orders Only [facility] Danitza Arthur Supervi sion of other Reproductive Medicine RN normal & [facility] - [address] [place] [address] (Pr imary Dx) [facility] [address] [place] [address] Social History Tobacco Use Types Packs/Day Years Used Date Smoking Tobacco: Never Assessed Sex Assigned at Date Recorded Not on file documented as of this encounter Progress Notes Danitza Arthur - 05/22/2010 0942 EDT Pt's beta HCG was 79,400. TVUS booked 05/26/10 at 9:30 am. Pt aware. documented in this encounter Plan of Treatment Not on filedocumented as of this encounter Procedures Procedure Name Priority Date/Time Associated Diagnosis Comme nts TECHNICAL PROFESSIONAL US OB FIRST Routine 05/26/2010 9:55 Supervision of other R esults for this TRIMESTER EDT normal procedure a re in TRANSVAGINAL the results section. documented in this encounter Results TECHNICAL PROFESSIONAL US OB FIRST TRIMESTER TRANSVAGINAL (05/26/2010 9:55 EDT) Anatomical Region Laterality Modality Other Specimen Anatomical Collection Method Collection Time Receive d Time (Source) Location / / Volume Laterality 05/26/2010 9:55 05/28/2010 EDT 10:05 EDT Narrative 05/28/2010 10:05 EDT Indication: TECHNICAL PROFESSIONAL 1st trim.dating. History: Age: 24 years. Dating: Current Scan on: 05/28/2010 EDC: 011 GA by current scan: 8w4d Best Overall Assessment: 05/28/2010 EDC: 01/03/2011 Assessed GA: 8w4d The calculation of the gestational age b y current scan was based on CRL. The Best Overall Assessment is based on the ultrasound examination on 05/28/2010. Early Assessment: Biometry: CRL 19.8 mm 70th% 8w4d (7w6d to 9w2d) Gestational Sac present. Yolk Sac presen t. Embryo present. Heart activity: Present. Heart rate: 175 bpm. Maternal Structures: Right Ovary: Right Ovary size: 39 mm x 29 mm x 17 mm. Volume: 10.1 ml. Left Ovary: Left Ovary size: 28 mm x 31 mm x 16 mm. Volume: 7.3 ml. Comments: Normal appearing ovaries. Report Summary: Impression: This is a normal scan. ??The patient is uncertain of her LMP, so the should be dated by today's scan. ??These results were discussed with the patient. Procedure Note 05/28/2010 Indication: TECHNICAL PROFESSIONAL 1st trim.dating. History: Age: 24 years. Dating: Current Scan on: 05/28/2010 EDC: 011 GA by current scan: 8w4d Best Overall Assessment: 05/28/2010 EDC: 01/03/2011 Assessed GA: 8w4d The calculation of the gestational age b y current scan was based on CRL. The Best Overall Assessment is based on the ultrasound examination on 05/28/2010. Early Assessment: Biometry: CRL 19.8 mm 70th% 8w4d (7w6d to 9w2d) Gestational Sac present. Yolk Sac presen t. Embryo present. Heart activity: Present. Heart rate: 175 bpm. Maternal Structures: Right Ovary: Right Ovary size: 39 mm x 29 mm x 17 mm. Volume: 10.1 ml. Left Ovary: Left Ovary size: 28 mm x 31 mm x 16 mm. Volume: 7.3 ml. Comments: Normal appearing ovaries. Report Summary: Impression: This is a normal scan. The p atient is uncertain of her LMP, so the should be dated by today's scan. These results were discussed with the patient. Dayo Britt MD IMG US TECHNICAL PROFESSIONAL ORDERABLES documented in this encounter Visit Diagnoses Diagnosis Supervision of other normal - Primary documented in this encounter Care Teams Pharmacy Student Relationship Specialty Start Date End Date None, Provider PCP - General 05/19/10 05/25/11 documented as of this encounter
--- OUTSIDE RECORDS SUMMARY | 2022-06-30 10:10 | XMS_ITS | Encounter Summary ---
:1985 Author Organization [facility] Address [address] [place] [address] Care Team Providers Name Role Phone None, Provider Primary Care Provider Unavailable Reason for Visit Reason Comments Initial Visit morning sickness, nausea and vomiting x 1, tired, Encounter Details Date Type Department Care Team Description 05/30/2010 Initial [facility] Mihcelle Juarez GA: 8w6d Women's Services [address] [address] [address], [place] [address] (Wo rk) Social History Tobacco Use Types Packs/Day Years Used Date Smoking Tobacco: Never Alcohol Use Standard Drinks/Week Comments No 0 (1 standard drink = 0.6 oz pure alcoho l) Sex Assigned at Date Recorded Not on file documented as of this encounter Last Filed Vital Signs Vital Sign Reading Time Taken Comments Blood Pressure 124/78 05/30/2010 1000 EDT Pulse - - Temperature - - Respiratory Rate - - Oxygen Saturation - - Inhaled Oxygen Concentration - - Weight 89.4 kg (197 lb 3.2 oz) 05/30/2010 1000 EDT Height 165.1 cm (5' 5) 05/30/2010 1000 EDT Body Mass Index 32.82 05/30/2010 1000 EDT documented in this encounter Progress Notes Michelle Juarez CNM - 05/30/2010 1107 EDT 4-13 Weeks Subjective: Kaela is 24 y.o. AT 8w6d here for visit. She and her fiance Tad were not using BCM since they knew they wanted children and weren't sure about her fertility due to the PCOS. Their wedding planned for December 20 has been delayed due to the due date. Her LMP was uncertain b/c she has irregular menses so her EDC is set by an early ultrasound making her now 8+6 weeks. 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 Pt has had some HTN when on BCPin the past and her parents have significant cardiovascular disease. Patient reports nausea, vomiting, fatigue Objective: Filed Vitals: 05/30/2010 1000 BP: 124/78 Height: 165.1 cm (65) Weight: 89.449 kg (197 lb 3.2 oz) Body mass index is 32.82 kg/(m^2). Additional Exam: see flow sheet Recent Results (from the past 672 hour(s)) HCG Collection Time 05/19/10 1616 Component Value Range ? ? HCG 93481 (*) <4 (mIU/ml) Ultrasound: 05/26 and found to be 8+4 weeks Assessment: 1. IUP at 8w6d nasea/vomiting 2. EDC @ 01/03/2011 based on Ultrasound 3. Labs: not completed 4. Normotensive today. Plan: 1. Problem list reviewed and updated. 2. Aneuploidy testing: Declined 3. Additional testing: First Trimester Ultrasound 4. Follow up in 4 wks 5. 80*% of 60 min visit spent in counseling and coordination of care. 6. Pt desires CNM practice 7. education done - counseled regarding nutrition and exercise ; to limit weight gain to 15# 8. Pt at risk for HTN - monitor closely. Consider baseline labs if some HTN occurs. 9. Danger signs and when to call CNM reviewed. documented in this encounter Plan of Treatment Not on filedocumented as of this encounter Visit Diagnoses Diagnosis Supervision of normal first - Primary documented in this encounter Historical Medications This list may reflect changes made after this encounter. Medication Sig Dispensed Refills Start Date End Date PNV WITH Take 1 Tab by mouth 0 05/30/201007/29 CA,NO.61/IRON/FA/DHA daily. (WOMEN'S + DHA ORAL) added in this encounter Orders Immunization/Injection Count Last Ordered Date First O rdered Date FLU VACCINE =>3YO SPLIT PRESERVATIVE FREE 1 2009 IM documented in this encounter Care Teams Septic Tank Setter Relationship Specialty Start Date End Date None, Provider PCP - General 05/19/10 05/25/11 documented as of this encounter
--- OUTSIDE RECORDS SUMMARY | 2022-06-30 10:10 | XMS_ITS | Encounter Summary ---
:1985 Author Organization [facility] Address [address] [place] [address] Care Team Providers Name Role Phone None, Provider Primary Care Provider Unavailable Encounter Details Date Type Department Care Team Description 05/29/2010 Orders Only [facility] Zita Guerrero RN Other specified complication, antepartum; Women's Services - [facility] Sup rvision of normal first [address] [address] Social History Tobacco Use Types Packs/Day Years Used Date Smoking Tobacco: Never Assessed Sex Assigned at Date Recorded Not on file documented as of this encounter Plan of Treatment Scheduled Orders Name Type Priority Associated Diagnoses Order S chedule PAP TEST- ORDER ONLY Pathology Routine Supervision of melody palencia Ordered: 05/29/2010 first documented as of this encounter Procedures Procedure Name Priority Date/Time Associated Diagnosis Comme nts CHLAMYDIA/N. Routine 05/29/2010 11:33 Supervision of Results f or this GONORRHOEAE EDT normal first procedure are i n AMPLIFIED RNA the results section. documented in this encounter Results (ABNORMAL) PROFILE AND VARICELLA (05/30/2010 17:23 EDT) [facility] Method Time Signature WBC 15.55 (H) 4.0 - [facility] 12.4 [facility] K/cmm RBC 4.54 3.86 - [facility] 5.04 [facility] M/cmm Hemoglobin 12.8 11.6 - IKNG 15.2 [facility] gm/dl HCT 38.0 34.9 - [facility] 44.4 % [facility] MCV 84 81 - 98 [facility] fl [facility] MCH 28.3 26.7 - [facility] 33.3 pg [facility] MCHC 33.8 32.1 - [facility] 35.9 [facility] gm/dl PLT 292 141 - 320 [facility] K/cmm [facility] RDW-CV 13.4 11.7 - [facility] 14.6 % [facility] Neutrophils 81.6 (H) 45.5 - [facility] 79.7 % [facility] Lymphocytes 14.1 (L) 15.0 - [facility] 46.8 % [facility] Monocytes 3.6 1.8 - [facility] 12.0 % [facility] Eosinophils 0.6 0.6 - 6.9 [facility] % [facility] Basophils 0.1 (L) 0.2 - 1.4 [facility] % [facility] ABS Neutrophils 12.68 (H) 2.20 - [facility] 8.85 [facility] K/cmm ABS Lymphs 2.20 1.09 - [facility] 3.30 [facility] K/cmm ABS Monocytes 0.56 0.1 - 0.8 [facility] K/cmm [facility] ABS Eosinophils 0.09 0.03 - [facility] 0.61 [facility] K/cmm ABS Basophils 0.02 0.01 - [facility] 0.11 [facility] K/cmm Type of Diff: Automated [facility] ABO and Rh Type O POS [facility] Antibody Screen Neg [facility] Hepatitis B Negative [facility] Surface Ag Reference [facility] Range: Negative Varicella IgG Positive [facility] Ab [facility] Rubella IgG Ab Antibody [facility] detected [facility] Assayed utilizing the DPC Immulite 2500. Values may vary with other methods. Syphilis Interpretation: [facility] Serology Nonreactive [facility] Reference Range: Nonreactive Specimen Anatomical Collection Method Collection Time Receive d Time (Source) Location / / Volume Laterality Blood specimen 05/30/2010 17:23 0 (specimen) EDT 17:25 EDT Michelle Juarez APRN, CNM PACKAGES & DNA PROBE ORDER REDDY Performing Organization Address City/State/ZIP Code Phon e Number [facility] [address] [place] [address] SERVICES [facility] [address] [place] [address] HIV ANTIBODY (05/30/2010 17:23 EDT) [facility] Method Time Signature HIV 1/2 Negative [facility] Antibody Reference [facility] Range: Negative Specimen Anatomical Collection Method Collection Time Receive d Time (Source) Location / / Volume Laterality Blood specimen 05/30/2010 17:23 0 (specimen) EDT 17:25 EDT Michelle Juarez APRN, CNM IMMUNOLOGY AND SEROLOGY OR DERABLES Performing Organization Address City/[facility]/ZIP Code Phon e Number [facility] [address] [place] [address] SERVICES [facility] [address] [place] [address] BACTERIAL CULTURE, URINE (05/30/2010 17:23 EDT) [facility] Method Time Signature Specimen Urine [facility] Description [facility] Result Less than [facility] 10,000 [facility] CFU/ml Mixed gram positive growth Report Status Final [facility] 06/01/2010 [facility] Specimen Anatomical Collection Method Collection Time Receive d Time (Source) Location / / Volume Laterality Other (qualifier 05/30/2010 17:23 010 value) EDT 17:25 EDT Michelle Juarez APRN, CNM MICROBIOLOGY - GENERAL ORD ERABLES Performing Organization Address City/[facility]/ZIP Code Phon e Number [facility] [address] [place] [address] SERVICES [facility] [address] [place] [address] CHLAMYDIA/GC AMPLIFIED (05/29/2010 11:33 EDT) Component Value Ref Test Analysis Performed At [facility] Method Time Signature Specimen Cervix [facility] Description [facility] Chlamydia No Chlamydia [facility] Result trachomatis DNA [facility] detected by commodity merchant mediated amplification. GC Result No Neisseria [facility] gonorrhoeae DNA [facility] detected by commodity merchant mediated amplification. Specimen Anatomical Collection Method Collection Time Receive d Time (Source) Location / / Volume Laterality Other (qualifier 05/29/2010 11:33 010 value) EDT 16:04 EDT Michelle Juarez APRN, CNM MICROBIOLOGY - GENERAL ORD ERABLES Performing Organization Address City/State/ZIP Code Phon e Number [facility] [address] [place] [address] SERVICES [facility] [address] [place] [address] documented in this encounter Visit Diagnoses Diagnosis Other specified complication, antepartum (646.83) Other specified complication, antepartum Supervision of normal first documented in this encounter Care Teams Mentally Retarded Teacher Relationship Specialty Start Date End Date None, Provider PCP - General 05/19/10 05/25/11 documented as of this encounter
--- OUTSIDE RECORDS SUMMARY | 2022-06-30 10:10 | XMS_ITS | Encounter Summary ---
:1985 Author Organization [facility] Address [address] [place] [address] Care Team Providers Name Role Phone None, Provider Primary Care Provider Unavailable Reason for Visit Reason Onset Date Comments 05/19/2010 Encounter Details Date Type Department Care Team Description 05/19/2010 Telephone [facility] Gila Schumacher, RN Services - [address] [address] Social History Tobacco Use Types Packs/Day Years Used Date Smoking Tobacco: Never Assessed Sex Assigned at Date Recorded Not on file documented as of this encounter Miscellaneous Notes Telephone Encounter - Danitza Arthur - 05/19/2010 1425 EDT Phone #: [phone] Referring Provider: [facility] Provider: : 1 Para: El.Abort: Ectopic: Miscarriage:_ How Conceived? X_? Spontaneous? Cc/hcg/iui? Other LMP: First week of April, but was only 1 1/2 days, +UPT beginning of last week GA: Blood Type: unknown Current Medications: vitamins daily Allergies: PCN -- hives Ht: 5'5 Wt: 200 lb Risk Factors: Abdominal pain or vaginal bleeding? Some cramping -- h/o ovarian cysts Previous pelvic or tubal surgery or ruptured appendix? No History of pelvic infections? No Previous tubal ? No Have you used an IUD? No Do you have a history of infertility for > 1 year? No Do you have a chronic medical illness? Previous outcomes: Date: First Beta HCG Levels Date: 05/19/10 Ultrasound Scheduled? Telephone Encounter - Karin Schumacher - 05/19/2010 1036 EDT Telephone message received from patient today. Patient requesting appointment for IVAP. Message leftfor patient to call back. Date: 05/19/10 Time: 10:31am Phone #: [phone] Referring Provider: [facility] Provider: : Para: Abort: Ectopic: Miscarriage: How conceived? Spontaneous CC/HCG/IUI Other LMP: GA: Blood Type: Current Medications: Allergies: Ht: Wt: Risk Factors: Abdominal pain or vaginal bleeding? Previous pelvic or tubal surgery or ruptured appendix? History of pelvic infections? Previous tubal ? Do you have an IUD? Do you have a history of infertility for > 1 year? Do you have a chronic medical illness? Previous outcomes: Date: Beta HCG Levels Date: Ultrasound Scheduled? Date: Time: Previous outcomes: Date: Beta HCG Levels Date: Ultrasound Scheduled? documented in this encounter Plan of Treatment Not on filedocumented as of this encounter Results (ABNORMAL) HCG (05/19/2010 16:16 EDT) athologist Signature HCG 03607 (H) <4 mIU/ml [facility] Comment: Reference Range: Positive = >10 Borderli ne = 4-10 ??recommend repeat. Negative = <4 Specimen Anatomical Collection Method Collection Time Receive d Time (Source) Location / / Volume Laterality Blood specimen 05/19/2010 16:16 0 (specimen) EDT 16:18 EDT Dayo Britt MD CHEMISTRY & BLOOD GAS [facility] [place] Performing Organization Address City/State/ZIP Code Phon e Number [facility] [address] [place] [address] SERVICES [facility] [address] [place] [address] documented in this encounter Visit Diagnoses Diagnosis Amenorrhea - Primary Absence of menstruation documented in this encounter Care Teams Electronic Wirer Relationship Specialty Start Date End Date None, Provider PCP - General 05/19/10 05/25/11 documented as of this encounter
--- OUTSIDE RECORDS SUMMARY | 2022-06-30 10:10 | XMS_ITS | Encounter Summary ---
:1985 Author Organization [facility] Address [address] [place] [address] Care Team Providers Name Role Phone None, Provider Primary Care Provider Unavailable Encounter Details Date Type Department Care Team Description 05/30/2010 Hospital Encounter [facility] - Dayo Britt Supervision of [facility] Kenrick Sanabria MD normal first [address] [place] [address] [address] [place] [address] Social History Tobacco Use Types Packs/Day Years [...] 05/30/201007/29 CA,NO.61/IRON/FA/DHA daily. (WOMEN'S + DHA ORAL) documented as of this encounter Discharge Disposition Disposition Code Departure Means Destination Home or Self Retirement documented in this encounter Plan of Treatment Not on filedocumented as of this encounter Procedures Procedure Name Priority Date/Time Associated Diagnosis Comme nts PROFILE AND Routine 05/30/2010 17:23 Supervision of R esults for this VARICELLA EDT normal first procedure are i n the results section. BACTERIAL CULTURE, Routine 05/30/2010 17:23 Supervision of Res ults for this URINE EDT normal first procedure are i n the results section. HIV 1/2 ANTIGEN AND Routine 05/30/2010 17:23 Supervision of aDrcy burt for this ANTIBODY, 4TH EDT normal first procedure are in GENERATION the results section. documented in this encounter Results (ABNORMAL) PROFILE AND VARICELLA (05/30/2010 17:23 EDT) [facility] Method Time Signature WBC 15.55 (H) 4.0 - [facility] 12.4 [facility] K/cmm RBC 4.54 3.86 - [facility] 5.04 [facility] M/cmm Hemoglobin 12.8 11.6 - [facility] 15.2 [facility] gm/dl HCT 38.0 34.9 [...] DNA PROBE ORDER REDDY Performing Organization Address [facility] Phon e Number [facility] [address] [place] [address] SERVICES [facility] [address] [place] [address] HIV ANTIBODY (05/30/2010 17:23 EDT) [facility] Method Time Signature HIV 1/2 Negative [facility] Antibody Reference [facility] Range: Negative Specimen Anatomical Collection Method Collection Time Receive d Time (Source) Location / / Volume Laterality Blood specimen 05/30/2010 17:23 0 (specimen) EDT 17:25 EDT Michelle Juarez APRN, CNM IMMUNOLOGY AND SEROLOGY OR DERABLES Performing Organization Address [facility] Phon e Number [facility] [address] [place] [address] SERVICES [facility] [address] [place] [address] BACTERIAL CULTURE, URINE (05/30/2010 17:23 EDT) [facility] Method Time Signature Specimen Urine [facility] Description [facility] Result Less than [facility] 10,000 [facility] CFU/ml Mixed gram positive growth Report Status Final [facility] 06/01/2010 [facility] Specimen Anatomical Collection Method Collection Time Receive d Time (Source) Location / / Volume Laterality Other (qualifier 05/30/2010 17:23 010 value) EDT 17:25 EDT Michelle Juarez APRN, CNM MICROBIOLOGY - GENERAL ORD ERABLES Performing Organization Address [facility] Phon e Number [facility] [address] [place] [address] SERVICES [facility] [address] [place] [address] documented in this encounter Visit Diagnoses Diagnosis Supervision of normal first documented in this encounter Care Teams Commercial Housekeeper Relationship Specialty Start Date End Date None, Provider PCP - General 05/19/10 05/25/11 documented as of this encounter
--- OUTSIDE RECORDS SUMMARY | 2022-06-30 10:10 | XMS_ITS | Encounter Summary ---
:1985 Author Organization [facility] Address [address] [place] [address] Care Team Providers Name Role Phone None, Provider Primary Care Provider Unavailable Encounter Details Date Type Department Care Team Description 05/29/2010 Hospital Encounter [facility], Jennifer white E, Other RELAY TELEGRAPHER CN 111 [facility] [address] [phone] [facility] [address] [place] [phone] (Wo rk) Social History Tobacco Use Types Packs/Day Years Used Date Smoking Tobacco: Never Assessed Sex Assigned at Date Recorded Not on file documented as of this encounter Discharge Disposition Disposition Code Departure Means Destination Home or Self Care documented in this encounter Plan of Treatment Not on filedocumented as of this encounter Visit Diagnoses Not on filedocumented in this encounter Care Teams Enforcement Safety Officer Relationship Specialty Start Date End Date None, Provider PCP - General 05/19/10 05/25/11 documented as of this encounter
== END 2022-06-30 09:49 | disposition home or self-care (01) ==
LOC: NCHCN 09:48
PROVIDERS: PCP Nurse Practitioner Family; Visit Provider Nurse Practitioner Family
DX: Z12.4 Encounter for screening for malignant neoplasm of cervix (principal); Z11.51 Encounter for screening for human papillomavirus (HPV)
CPT/HCPCS: 88142; 87624

== ENCOUNTER 2023-08-12 19:41 | Outpatient (REF) | payer OTHER, SELFPAY ==
[2023-08-12 19:15] LABS: Anion Gap 7.5 mmol/L (3-11); BUN 12 mg/dL (7-18); CO2 26.5 mmol/L (21.0-32.0); CREATININE 0.8 mg/dL (0.55-1.02); Calcium 9.6 mg/dL (8.5-10.1); Chloride 103 mmol/L (98-107); Estimated GFR 96.66 (mL/min/1.73m2); Glucose 98 mg/dL (74-106); Potassium 4.2 mmol/L (3.5-5.1); Sodium 137 mmol/L (136-145)
== END 2023-08-12 19:42 | disposition home or self-care (01) ==
LOC: NCHCN 19:41
PROVIDERS: PCP Nurse Practitioner Family; Visit Provider Nurse Practitioner Family
DX: I10 Essential (primary) hypertension (principal)
CPT/HCPCS: 80048

== ENCOUNTER 2023-09-01 11:43 | Day surgery (SDC) | payer OTHER, SELFPAY ==
[2023-09-01 11:50] VITALS: BP 124/83; PULSE 80; RESP 16; TEMP 36.4; O2SAT 100
[2023-09-01] MEDS: Lactated Ringers 1,000 ML 80 ML IV (12:26)
--- NOTE | 2023-09-01 13:07 | W.ANESPRE ---
General Info Date of Service Date Performed: 09/01/23 Height: 5 ft 5 in Weight: 104.5 kg Body Mass Index (BMI): 38.3 Surgical Procedure: Operation Date: 09/01/23 13:10 Proposed Procedure Side Surgeon p Wrist ECTR Right Markus Rosario MD Meds Allergies and Home Medications Allergies Allergy/AdvReac Type Severity Reaction Status Date / Time bee venom protein (honey bee) Allergy Severe swelling Verified 09/01/23 11:52 Penicillins Allergy Intermediate Skin Rash Unverified 09/01/23 11:52 Home Medication Medication Instructions Recorded ibuprofen 200 mg capsule 400 mg PO PRN PRN 09/14/16 lisinopril 20 mg tablet 20 mg PO DAILY 11/03/17 Current Visit Medications: Current Medications Generic Name Dose Route Start Last Admin Trade Name Freq PRN Reason Stop Dose Admin Acetaminophen 650 mg 09/01/23 07:26 Acetaminophen 325 Mg Tab PO 10/01/23 07:25 Q4H PRN PRN Hydrocodone Bitart/Acetaminophen 0 tab 09/01/23 07:26 Hydrocodone 5/Acetaminophen 325 Tab PO 10/01/23 07:25 Q3H PRN PRN Pain Ringer's Solution 1,000 mls @ 80 mls/hr 09/01/23 06:00 09/01/23 12:26 IV 09/30/23 23:59 80 mls/hr INFUSION ALEKSANDRA Administration Cefazolin Sodium/Dextrose 2 gm in 50 mls @ 100 mls/hr 09/01/23 06:00 Ancef Duplex IVPB 09/30/23 23:59 PREOP ALEKSANDRA IV Miscellaneous Supplies 1 each 09/01/23 06:00 Iv Access IV 09/30/23 23:59 DIRECTED ALEKSANDRA Sodium Chloride 0 ml 09/01/23 06:00 Normal Saline Flush 10 Ml Syr IV 09/30/23 23:59 PRN PRN Sodium Chloride 0 ml 09/01/23 06:00 Normal Saline 10 Ml Vial IJ 09/30/23 23:59 DIRECTED PRN Sterile Water 0 ml 09/01/23 06:00 Water,Injection,Sterile 10 Ml Vial IJ 09/30/23 23:59 DIRECTED PRN PFSH Active Problems Active Problems: Problem Status Onset Code Right carpal tunnel syndrome G56.01 Postop check Z09 Sebaceous cyst L72.3 Medical History Medical History Hypertension Obesity Surgical History Surgical History Hx of wisdom tooth extraction Tobacco Smoking/Tobacco Use Status: Never Alcohol Alcohol Intake: current Alcohol intake frequency: a few times a month Substance Use Substance use: Never Substance use type: does not use Vital Signs and Lab Results Vital Signs Most Recent Vital Signs in EMR: Most Recent Vital Signs Temp Pulse Resp BP Pulse Ox 36.4 C L 80 16 124/83 100 09/01/23 11:50 09/01/23 11:50 09/01/23 11:50 09/01/23 11:50 09/01/23 11:50 Point of Care Results Point of Care Results: POC- Test(urine) Negative 09/01/23 12:13 Lab Results Blood Type / Crossmatch: No Data to Display Complete Blood Count: No Data to Display Complete Metabolic Panel: Sodium 137 mmol/L (136-145) 08/12/23 15:30 Potassium 4.2 mmol/L (3.5-5.1) 08/12/23 15:30 Chloride 103 mmol/L (98-107) 08/12/23 15:30 Carbon Dioxide 26.5 mmol/L (21.0-32.0) 08/12/23 15:30 BUN 12 mg/dL (7-18) 08/12/23 15:30 Creatinine 0.8 mg/dL (0.55-1.02) 08/12/23 15:30 Est GFR (CKD-EPI 2020) 96.66 (mL/min/1.73m2) 08/12/23 15:30 Calcium 9.6 mg/dL (8.5-10.1) 08/12/23 15:30 Glucose 98 mg/dL (74-106) 08/12/23 15:30 Liver Function Panel: No Data to Display Coagulation Panel: No Data to Display Cardiac Panel: No Data to Display Arterial Blood Gas: No Data to Display Venous Blood Gas: No Data to Display Pancreas Panel: No Data to Display Thyroid Panel: No Data to Display Infectious Disease: No Data to Display Blood Cultures: No Data to Display Toxicology Panel: No Data to Display Panel: No Data to Display Anesthesia Assessment and Plan Anesthesia History Personal History: No History of Anesthesia Complications Family History: No Family History of Anesthesia Complications Exercise Tolerance Exercise Tolerance: Metabolic Equivalents>4 Pertinent Negatives Pertinent Negatives: No Symptoms of GERD, No Major Pulmonary Symptoms or Complaints and No History of CVA/TIA Cardiac & Pulmonary Exam Cardiac Exam: Normal S1/S2 Heart Sounds Pulmonary Exam: Clear Bilateral Breath Sounds Implantable Cardiac Device Does patient have a Pacemaker or an ICD?: No Airway Exam Known Difficult Airway: No Mallampati Class: 3 Mouth Opening: Narrow (< 3cm) Thyromental Distance: Greater than 3 cm Neck Range of Motion: Full ROM Neck Circumference: Normal Teeth Condition: Normal Dentition ASA Classification ASA Score: ASA 2 Emergency Case?: No NPO Status NPO Status: NPO Clears >2 hours, Solids >8 hours Status Status: Negative HCG Anesthesia Plan Resuscitation Status: Full Code Anesthesia Technique: General Anesthesia Airway Planned: Natural Airway Monitors Used: Standard Monitors Preoperative Comments:: 38 yo female HTN (lisinopril), Lyme (in remission)
[2023-09-01 13:09] VITALS: BMI 38.3
--- NOTE | 2023-09-01 13:57 | W.PREOPHP ---
Assessment and Plan Assessment and plan (1) Right carpal tunnel syndrome: Status: Acute Assessment and plan: Kaela is a 38-year-old who has carpal tunnel seen about the right side. She is here today for carpal tunnel release. After a review of clinical history, exam findings, and nerve conduction testing, carpal tunnel syndrome is the most reasonable diagnosis. I discussed the technical details of carpal tunnel release and that I perform an endoscopic release, but would make a larger, open, incision if necessary for visualization. I discussed the risks of the procedure to include, but not limited to, bleeding, infection, palmar pain, stiffness, damage to nerves, damage to vessels, damage to tendons, weakness, recurrence, and incomplete release. Given these risks, Kaela desires to proceed. History of Present Illness Narrative: Kaela is a 38-year-old who has carpal tunnel syndrome about the right side. Please see the previous office note. She is here for carpal tunnel release. She has had no changes to her medical history. No chest pain or shortness of breath. No recent illness. Review of Systems All systems reviewed & are unremarkable except as noted in HPI and below PFSH All Active Problems Right carpal tunnel syndrome (Acute) Postop check (Acute) Sebaceous cyst (Acute) Medical History Hypertension Obesity Surgical History Hx of wisdom tooth extraction Social History Smoking/Tobacco Use Status: Never Smoking risk assessment performed?: Yes Alcohol Intake: current Alcohol Intake frequency: a few times a month Drug use: Never Substance use type: does not use Housing: house Do you feel safe at home: Yes Do you feel safe in your relationship?: Yes Meds Allergies and Home Medications Allergies Allergy/AdvReac Type Severity Reaction Status Date / Time bee venom protein (honey bee) Allergy Severe swelling Verified 09/01/23 11:52 Penicillins Allergy Intermediate Skin Rash Unverified 09/01/23 11:52 Home Medications Medication Instructions Recorded Confirmed Type ibuprofen 200 mg capsule 400 mg PO PRN PRN 09/14/16 09/01/23 History lisinopril 20 mg tablet 20 mg PO DAILY 11/03/17 09/01/23 History Exam Resp Effort & Inspection: normal respiratory effort Auscultation: clear to auscultation bilaterally Cardio Rate: regular rate Rhythm: regular rhythm Results Last Vital Signs Temp 36.4 C L 09/01/23 11:50 Pulse 80 09/01/23 11:50 Resp 16 09/01/23 11:50 BP 124/83 09/01/23 11:50 Pulse Ox 100 09/01/23 11:50
[2023-09-01] MEDS: ceFAZolin 2 GM/50 ML BAG IVPB (14:03)
[2023-09-01] MEDS: Lidocaine 1% Multi-Dose W/EPI 1/100,000 50 ML VIAL (14:22)
[2023-09-01 14:29] VITALS: BP 115/57; PULSE 96; RESP 18; TEMP 36.4; O2SAT 95
--- NOTE | 2023-09-01 14:35 | W.ANESPOSTOP ---
Postoperative Evaluation Date, Time and Location Date Performed: 09/01/23 Time Performed: 14:35 Patient Location: Day Surgery Unit Vital Signs Most Recent Imported Vital Signs: Most Recent Vital Signs Temp Pulse Resp BP Pulse Ox 36.4 C L 96 H 18 115/57 L 95 09/01/23 14:29 09/01/23 14:29 09/01/23 14:29 09/01/23 14:29 09/01/23 14:29 Pain Score Most Recent Pain Score: Most Recent Pain Score Pain Level 0 09/01/23 14:29 Assessment Mental Status: Awake (Alert & Oriented to Patient Baseline) Airway and Respiratory Function: Patent airway with normal (patient baseline) respiratory exam Cardiovascular Function: Hemodynamically Stable Hydration Status: Adequately Hydrated Nausea & Vomiting: No Nausea or Vomiting Pain: Pt. Denies Any Pain Peripheral Nerve Block: Patient did not receive a nerve block
[2023-09-01 14:43] VITALS: BP 158/83; PULSE 87; RESP 18; TEMP 36.6; O2SAT 98
[2023-09-01 14:47] VITALS: BP 123/77; TEMP 36.4
--- NOTE | 2023-09-01 14:49 | W.PM.DSUDISC ---
Date of service: 09/01/23 Time of Service: 14:49 Discharge Plan Disposition Patient Disposition: Home Condition: Good Discharge Details Reason For Visit: R ECTR Attending Provider: Markus Rosario Primary Care Provider: Nelly Guido Home Meds and New Rx's Prescriptions: New hydrocodone-acetaminophen 5-325 mg tablet 1 tab PO Q6H PRN (Reason: pain) Qty: 3 0RF acetaminophen 500 mg tablet 1,000 mg PO TID Qty: 90 0RF ibuprofen 600 mg tablet 600 mg PO TID PRN (Reason: pain) Qty: 90 0RF Continued lisinopril 20 MG tablet 20 mg PO DAILY Discontinued ibuprofen 200 MG capsule 400 mg PO PRN PRN Discharge Instructions Stand Alone Forms: Anesthesia Discharge Inst., Abraham Granda Tunnel Release, Zac Sosa ([facility]U) Referrals: Markus Rosario MD [ [facility] STAFF PHYSICIAN] - Activity:: Activity as Tolerated Remove Dressings/Wound Care:: 48 hours Shower/Bathe:: 48 hours Diet:: As Tolerated Discharge Orders Discharge Orders: Discharge Order (Routine); Ordered 09/01/23 Ordered By: Francois Martinez DS: Diagnosis Discharge Diagnosis (1) Right carpal tunnel syndrome: Status: Acute
--- NOTE | 2023-09-01 20:50 | W.PM.OP ---
Date of service: 09/01/23 Time of Service: 14:00 Operative Note Operative Note DATE OF PROCEDURE: 09/01/23 PRE-OP DIAGNOSIS: Right Carpal Tunnel Syndrome POST-OP DIAGNOSIS: same PROCEDURE: Right Endoscopic Carpal Tunnel Release SURGEON: Markus Rosario ANESTHESIA TYPE: General:No Airway Refer to Anesthesia Record ESTIMATED BLOOD LOSS: 0 PATHOLOGY: none sent TOURNIQUET TIME: 6 COMPLICATIONS: None Patient was transported to: same day Patient's condition: stable Indications: I have seen Kaela in clinic for symptoms of carpal tunnel syndrome. The numbness, tingling, and pain limited function. Clinical exam findings confirmed the diagnosis of carpal tunnel syndrome. Nonoperative measures such as bracing, time, activity modifications had been tried but disability and pain persisted. I discussed carpal tunnel release with the patient. I reviewed the risks of the procedure to include, but not limited to, bleeding, infection, pain, stiffness, incomplete release, damage to nerves or vessels, persistent numbness, recurrence. Despite these risks, the patient elected to proceed. Findings: There was tightened carpal tunnel. This was dilated and released successfully with the endoscopic with increased space within the tunnel. The antebrachial fascia was released proximally freeing the median nerve at the wrist. Procedure Description: Kaela was greeted in the preoperative holding area where the correct side was identified and marked. The consent was reviewed with the patient and signed. The history and physical was updated. All questions were answered. Kaela was taken back to the operating room. The patient was placed into the supine position on the operating room table with the right arm on an arm board. A nonsterile tourniquet was placed high onto the arm. All bony prominences were well padded. Prophylactic antibiotics in the form of Cefazolin were administered. The right arm was then prepped with Chloraprep and draped in a standard fashion with stockinette and extremity drape. A timeout to confirm correct identity, side and site, procedure, allergies, anesthesia, and medical concerns was performed. The surgical site was marked in the volar wrist creases in line with the radial border of the fourth ray. This area was anesthetized with approximately 6cc of 1% Lidocaine. The limb was then exsanguinated with an Esmarch. The skin was incised with a 15 blade, approximately 1cm. The skin only was cut and the deeper tissue was dissected bluntly with a tenotomy scissor, avoiding passing nerve and venous structures. The fascia was penetrated and opened bluntly. A two-prong skin hook was placed under this proximal fascial edge. A series of hamate finders were used to identify and dilate the carpal tunnel. Synovial elevator was used to free synovial attachments to the underside of the transverse carpal ligament. My thumb was kept in the palm to rashad the distal extent of the carpal tunnel and correctly position the hand. The Microaire endoscope was inserted without difficulty and without resistance. Excellent visualization showed horizontally running fibers of the transverse carpal ligament (TCL). The distal extent of the TCL was visualized and the end of the scope palpated with the thumb. The blade was elevated and withdrawn from distal to proximal. The TCL was split into two flaps. The endoscope was reinserted to confirm complete release and any remnant ligament was incised. The scope was withdrawn and the proximal aspect of the carpal tunnel was grossly inspected and appeared release with the median nerve visible. The antebrachial fascia at the level of the wrist was then freed from the overlying skin and then the underlying median nerve with blunt dissection. This was transected longitudinally for about 3cm proximal to the wrist incision. The wound was then irrigated with easy flow of irrigant distally and proximally. The incision was closed with a single 4-0 Nylon suture. The wound was dressed with Xeroform, Gauze, Kerlix and Bruno. The tourniquet was deflated with the initial dressing and held with some pressure. Blood flow returned easily to all digits with capillary refill less than 2 seconds. The patient tolerated the procedure well and was returned to the Same Day Surgery area in a stable condition suffering no known complication.
== END 2023-09-01 15:11 | disposition home or self-care (01) ==
PROVIDERS: PCP Nurse Practitioner Family; Visit Provider Student in an Organized Health Care Education/Training Program
PROC: 01N54ZZ Release Median Nerve, Percutaneous Endoscopic Approach (ICD-10-PCS; CPT 29848; principal; 2023-09-01 13:00)
DX: G56.01 Carpal tunnel syndrome, right upper limb (principal); I10 Essential (primary) hypertension
CPT/HCPCS: 29848; 81025; J0690; J2001; J2004; J2704

== ENCOUNTER 2024-08-15 18:01 | Outpatient (REF) | payer OTHER, SELFPAY ==
[2024-08-15 19:22] LABS: HCT 43.7 % (36.0-46.0); HGB 13.7 g/dL (11.2-15.7); MCH 27.2 pg (27.0-33.0); MCHC 31.4 % (32.0-36.0); MCV 87 fL (80-95); MPV 9.5 fL (8.0-11.0); Platelet Count 325 10^3/uL (130-400); RBC 5.04 10^6/uL (3.93-5.22); RDW 13.1 % (11.7-14.6); RDW-SD 40.8 fL; WBC 10.96 10^3/uL (4.4-10.8)
[2024-08-15 19:36] LABS: Hemoglobin A1C 5.2 % (<5.7)
[2024-08-15 19:45] LABS: ALT 24 U/L (14-59); AST 21 U/L (15-37); Albumin 4.1 g/dL (3.4-5.0); Alkaline Phosphatase 64 U/L (46-116); Anion Gap 8.8 mmol/L (3-11); BUN 5 mg/dL (7-18); CO2 27.2 mmol/L (21.0-32.0); CREATININE 0.8 mg/dL (0.55-1.02); Calcium 9.6 mg/dL (8.5-10.1); Calculated LDL 93 mg/dL (<100); Chloride 106 mmol/L (98-107); Cholesterol 186 mg/dL (<200); Estimated GFR 96.06 (mL/min/1.73m2); Glucose 99 mg/dL (74-106); HDL Cholesterol 68 mg/dL (40-60); Potassium 4.1 mmol/L (3.5-5.1); Sodium 142 mmol/L (136-145); TSH (W/Ref FT4) 1.34 uIU/mL (0.36-3.74); Total Protein 7.8 g/dL (6.4-8.2); Triglyceride 125 mg/dL (<150)
== END 2024-08-15 18:02 | disposition home or self-care (01) ==
LOC: NCHCN 18:01
PROVIDERS: Visit Provider Nurse Practitioner Family
DX: I10 Essential (primary) hypertension (principal); Z13.220 Encounter for screening for lipoid disorders
CPT/HCPCS: 80053; 80061; 85027; 83036; 84443

== ENCOUNTER 2024-08-31 03:04 | Outpatient (CLI) | payer OTHER, SELFPAY ==
--- NOTE | 2024-08-31 | DI.MAMMO_ITS ---
Exam(s) MAMMO SCREENING EXAM: MAMMO SCREENING CLINICAL HISTORY: Screening, Z12.31 TECHNIQUE: Bilateral full field digital CC and MLO mammographic images were obtained with 3D tomosyn thesis and utilizing computer aided detection (CAD). COMPARISON: This is a baseline examination. FINDINGS: Masses/Architectural Distortion: There is a well-circumscribed 8-9 mm nodule at the 12 o'clock positi on of the left breast 6-7 cm from the nipple. There are no areas of architectural distortion. Microcalcifications: No suspicious pleomorphic-type are seen. Skin Thickening/Nipple Retraction: None. IMPRESSION: 1. Well-circumscribed 8 mm nodule at the 12 o'clock position of the left breast. 2. Further evaluation with a spot compression views are requested. Targeted left breast ultrasound m ay be indicated at that time. BI-RADS Category 0 - Incomplete: Need additional imaging evaluation Breast Density - Category B - Scattered areas of fibroglandular density Breast density category C or D implies that the patient has dense breast tissue. Dense breast tissue is very common and is not abnormal but dense breast tissue can make it harder to find cancer on a ma mmogram. Also, dense breast tissue may increase their breast cancer risk. This information about the result of the mammogram report was provided to the patient to raise their awareness. Use this report when you speak with the patient about their risks for breast cancer, which includes their family hist ory. At that time, you may recommend for more screening tests (Ultrasound or MRI) as they might be us eful based on their risk. A negative radiographic report should not delay biopsy if a dominant or clinically suspicious mass is present. Up to ten percent of cancers are not identified on mammography. A negative report may reinforce clinical impression. Adenosis and dense breasts may obscure an underlying neoplasm. False positive reports average 6 to 10%. Patient will receive a letter notifying them of these results.
== END 2024-08-31 03:24 ==
LOC: DI 03:04
PROVIDERS: Visit Provider Nurse Practitioner Family
DX: Z12.31 Encounter for screening mammogram for malignant neoplasm of breast (principal); R92.323 Mammographic fibroglandular density, bilateral breasts
CPT/HCPCS: 77063; 77067

== ENCOUNTER 2024-09-06 00:31 | Outpatient (CLI) | payer OTHER, SELFPAY ==
--- NOTE | 2024-09-06 14:39 | DI.MAMMO_ITS ---
Exam(s) MG MAMMO SCREEN CALL BACK UNI US BREAST LT LIMITED EXAM: MG MAMMO SCREEN CALL BACK UNI CLINICAL HISTORY: Well-circumscribed 8 mm nodule at 12 o'clock position of left breast. TECHNIQUE: Craniocaudal and mediolateral oblique spot compression digital Mammography views of the l eftbreast with Tomosynthesis and left breast ultrasound. COMPARISON: MG MG MAMMO SCREENING from 08/31/2024 US US BREAST LT LIMITED from 09/06/2024 FINDINGS: Mammography/Tomosynthesis: Masses: No suspicious masses are seen. Faintly visualized circumscribed ovoid nodule measuring 6 mil limeters. It has a central fatty hilum consistent with an intramammary lymph node. Architectural Distortion: None seen. Microcalcifictions: No suspicious pleomorphic-type are seen. Skin Thickening/Nipple Retraction: None. Left breast US: Echotexture: Normal appearance of the glandular tissue. Shadowing: No suspicious foci. Cyst: None. Solid lesions: In the 12 o'clock position, 7 cm from the nipple, there is an ovoid hypoechoic nodule measuring 6 x 3 x 8 millimeters with small central hilum. Findings are consistent with an intramammar y lymph node. Ductal dilation: None. IMPRESSION: 1. No evidence of malignancy is noted. Ovoid nodule on mammogram and ultrasound is consistent with an intramammary lymph node. 2. Unless there is more urgent need, follow-up screening mammography is recommended, as per [employer] guidelines. 3. The findings were discussed with the patient on the date of the examination. BI-RADS Category 2 - Benign Findings Breast Density - Category B - Scattered areas of fibroglandular density A negative radiographic report should not delay biopsy if a dominant or clinically suspicious mass is present. Up to ten percent of cancers are not identified on mammography. A negative report may reinforce clinical impression. Adenosis and dense breasts may obscure an underlying neoplasm. False positive reports average 6 to 10%. Patient will receive a letter notifying them of these results.
== END 2024-09-06 00:51 ==
LOC: DI 00:31
PROVIDERS: PCP Nurse Practitioner Family; Visit Provider Nurse Practitioner Family
DX: Z12.31 Encounter for screening mammogram for malignant neoplasm of breast (principal); R92.323 Mammographic fibroglandular density, bilateral breasts; D24.2 Benign neoplasm of left breast
CPT/HCPCS: 76642; 77063; 77067